=== PATIENT | female | born 1995 | race Caucasian/White ===

== ENCOUNTER 2016-11-19 21:05 | Outpatient (CLI) | payer OTHER ==
[2016-11-19 22:05] VITALS: BP 136/78; PULSE 78; RESP 18; TEMP 98.2
--- NOTE | 2016-11-21 22:03 | P.MSEPDOC ---
Presenting Problems - Arrival Data Date of Arrival on Unit: 11/19/16 Time of Arrival on Unit: 21:05 Mode of Transport: Ambulatory - Complaint OB-Reason for Admission/Chief Complaint: Pain Comment: abdominal pain mid upper, left lower Medical History - Information : 2 Para: 1 Term: 0 : 1 Abortions: Spontaneous or Elective: 0 Number of Living Children: 1 - Gestational Age Expected Date of Delivery: 04/06/17 Gestational Age by LARISSA (wks/days): 20 Weeks and 4 Days Review of Systems - Review of Systems Constitutional: No problems Breast: No problems ENT: No problems Cardiovascular: No problems Respiratory: No problems Gastrointestinal: No problems Genitourinary: No problems Musculoskeletal: No problems Neurological: No problems Skin: No problems Vital Signs - Temperature Temperature: 98.2 F Temperature Source: Oral - Pulse Right Sitting Brachial Pulse Rate: 78 Pulse Assessment Method: Automatic Cuff - Respirations Respiratory Rate: 18 Oxygen Delivery Method: Room Air - Blood Pressure Right Arm Sitting Blood Pressure: 136/78 Blood Pressure Mean: 97 Blood Pressure Source: Automatic Cuff Medical Screen Scoring (Pre) - Cervical Exam Dilation: Exam Deferred Effacement: Exam Deferred Membranes: Intact - Uterine Contractions Frequency: N/A Duration: N/A Intensity: N/A - Maternal Vital Signs Maternal Temperature: N/A Maternal Blood Pressure: N/A Signs of Preeclampsia: N/A Maternal Respirations: N/A - Maternal Trauma Maternal Trauma: N/A - Assessment Baseline FHR: 143 - Total Score Total Score (Pre): 0 - Level of Risk Level of Risk: Low (0-5) Physician Notification (Pre) - Physician Notified Physician Notified Date: 11/19/16 Physician Notified Time: 21:33 Physician/Practitioner Notifed:: Dr Carter Spoke With: Dr Carter New Order Received: Yes - Notification Comment Comment: pt can be discharged home, follow up in the office tomorrow Medical Screen Scoring (Post) - Cervical Exam Dilation: Exam Deferred Effacement: Exam Deferred Membranes: Intact - Uterine Contractions Frequency: N/A Duration: N/A Intensity: N/A - Maternal Vital Signs Maternal Temperature: N/A Signs of Preeclampsia: N/A Maternal Respirations: N/A - Maternal Trauma Maternal Trauma: N/A - Total Score Total Score (Post): 0 - Post Treatment Level of Risk Post Treatment Level of Risk: Low (0-5) Physician Notification (Post) - Physician Notified Physician Notified Date: 11/19/16 Physician Notified Time: 21:33 Spoke With: Dr Carter New Order Received: Yes Disposition - Disposition OB Disposition: Discharge to home, Written follow up instructions reviewed Discharge Date: 11/19/16 Discharge Time: 21:40 I agree with the RN Medical Screening Exam: Yes Risk & Benefit of care provided described in d/c instruction: Yes Diagnosis: OTH RELATED CONDITIONS, SECOND TRIMESTER
== END 2016-11-19 21:40 | disposition home or self-care (01) ==
LOC: FBPOP 21:05
PROVIDERS: ATTEND Obstetrics & Gynecology
DX: O26.892 Other specified pregnancy related conditions, second trimester (principal); Z3A.20 20 weeks gestation of pregnancy
CPT/HCPCS: 99213

== ENCOUNTER 2017-01-02 21:43 | Outpatient (CLI) | payer OTHER ==
[2017-01-02 22:39] VITALS: BP 141/73; PULSE 94; RESP 16; TEMP 97.9
--- NOTE | 2017-01-26 12:28 | P.MSEPDOC ---
Presenting Problems - Arrival Data Date of Arrival on Unit: 01/02/17 Time of Arrival on Unit: 21:45 Mode of Transport: Ambulatory - Complaint OB-Reason for Admission/Chief Complaint: Rule Out PROM, Decreased Movement Comment: Pt unsure of if her water broke "in the last couple days" Medical History - Information : 2 Para: 1 Term: 0 : 1 Abortions: Spontaneous or Elective: 0 Number of Living Children: 1 - Gestational Age Expected Date of Delivery: 04/12/17 Gestational Age by LARISSA (wks/days): 29 Weeks and 1 Days - History Complications: Prior Comment: PIH, HX preeclampsia Review of Systems - Review of Systems Constitutional: No problems Breast: No problems ENT: No problems Cardiovascular: No problems Respiratory: No problems Gastrointestinal: No problems Genitourinary: Increased frequency Musculoskeletal: No problems Neurological: No problems Skin: No problems Vital Signs - Temperature Temperature: 97.9 F Temperature Source: Oral - Pulse Pulse Oximetery Pulse Rate: 94 Pulse Assessment Method: Pulse Oximetry - Respirations Respiratory Rate: 16 Oxygen Delivery Method: Room Air O2 Sat by Pulse Oximetry: 100 - Blood Pressure Right Arm Blood Pressure: 141/73 Blood Pressure Mean: 95 Blood Pressure Source: Automatic Cuff Medical Screen Scoring (Pre) - Cervical Exam Dilation: Exam Deferred Effacement: Exam Deferred Membranes: Intact - Uterine Contractions Frequency: N/A Duration: N/A Intensity: N/A - Maternal Vital Signs Maternal Temperature: N/A Maternal Blood Pressure: N/A Signs of Preeclampsia: N/A Maternal Respirations: N/A - Maternal Trauma Maternal Trauma: N/A - Assessment Baseline FHR: 145 Heart Rate - NICHD Category: Category I (Normal) = 0 Position: N/A Station: N/A - Total Score Total Score (Pre): 0 - Level of Risk Level of Risk: Low (0-5) Physician Notification (Pre) - Physician Notified Physician Notified Date: 01/02/17 Physician Notified Time: 22:16 Physician/Practitioner Notifed:: Dr Carter Spoke With: Telephone New Order Received: Yes (discharge and follow up thursday if symptoms of UTI persist.) Disposition - Disposition OB Disposition: Discharge to home Discharge Date: 01/02/17 Discharge Time: 22:27 I agree with the RN Medical Screening Exam: No Physician's MSE Comment: incomplete documentation Risk & Benefit of care provided described in d/c instruction: No Diagnosis: 28 WEEKS GESTATION OF
== END 2017-01-02 22:27 | disposition home or self-care (01) ==
LOC: FBPOP 21:43
PROVIDERS: ATTEND Obstetrics & Gynecology
DX: O36.8130 Decreased fetal movements, third trimester, not applicable or unspecified (principal); Z3A.29 29 weeks gestation of pregnancy
CPT/HCPCS: 84112; G0463; 99213

== ENCOUNTER 2017-02-05 00:40 | Outpatient (CLI) | payer OTHER ==
[2017-02-05 01:23] VITALS: BP 138/86; PULSE 94; RESP 16; TEMP 96.3
--- NOTE | 2017-03-04 16:19 | P.MSEPDOC ---
Presenting Problems - Arrival Data Date of Arrival on Unit: 02/05/17 Time of Arrival on Unit: 00:40 Mode of Transport: Wheelchair - Complaint OB-Reason for Admission/Chief Complaint: Pain Comment: scar pain that started around 1500 02/04 Medical History - Information : 2 Para: 1 Term: 0 : 1 Abortions: Spontaneous or Elective: 0 Number of Living Children: 1 - Gestational Age Gestational Age by LARISSA (wks/days): 30 Weeks and 4 Days - History Complications: Prior Review of Systems - Review of Systems Constitutional: No problems Breast: No problems ENT: No problems Cardiovascular: No problems Respiratory: No problems Gastrointestinal: No problems Genitourinary: No problems Musculoskeletal: No problems Neurological: No problems Skin: No problems Vital Signs - Temperature Temperature: 96.3 F Temperature Source: Temporal Artery Scan - Pulse Pulse Oximetery Pulse Rate: 94 Pulse Assessment Method: Pulse Oximetry - Respirations Respiratory Rate: 16 Oxygen Delivery Method: Room Air - Blood Pressure Sitting Blood Pressure: 138/86 Blood Pressure Mean: 103 Blood Pressure Source: Automatic Cuff Medical Screen Scoring (Pre) - Cervical Exam Dilation: Exam Deferred Effacement: Exam Deferred Membranes: Intact - Uterine Contractions Frequency: N/A Duration: N/A Intensity: N/A - Maternal Vital Signs Maternal Temperature: N/A Maternal Blood Pressure: N/A Signs of Preeclampsia: N/A Maternal Respirations: N/A - Maternal Trauma Maternal Trauma: N/A - Assessment Baseline FHR: 135 Heart Rate - NICHD Category: Category I (Normal) = 0 NST: Reactive Position: N/A Station: N/A - Total Score Total Score (Pre): 0 - Level of Risk Level of Risk: Low (0-5) Physician Notification (Pre) - Physician Notified Physician Notified Date: 02/05/17 Physician Notified Time: 01:00 Physician/Practitioner Notifed:: Dr. Carter - Notification Comment Comment: Obtain reative NST, patient may continue to take regular tylenol as directed otc for pain, patient to keep regularly scheduled appointment with Dr. Bear otherwise can call office and schedule follow up for today or tomorrow in the office if the pain persists. Patient to return to the hospital if she notices contractions begin or patient begins leaking fluid or bleeding. Disposition - Disposition OB Disposition: Discharge to home, Written follow up instructions reviewed Discharge Date: 02/05/17 Discharge Time: 01:11 I agree with the RN Medical Screening Exam: Yes Risk & Benefit of care provided described in d/c instruction: Yes Diagnosis: 30 WEEKS GESTATION OF
== END 2017-02-05 01:11 | disposition home or self-care (01) ==
LOC: FBPOP 00:40
PROVIDERS: ATTEND Obstetrics & Gynecology
DX: O99.89 Other specified diseases and conditions complicating pregnancy, childbirth and the puerperium (principal); R10.9 Unspecified abdominal pain; Z3A.30 30 weeks gestation of pregnancy
CPT/HCPCS: 59025; G0463; 99213

== ENCOUNTER 2017-03-16 12:20 | Outpatient (CLI) | payer OTHER ==
[2017-03-16 14:09] VITALS: BP 123/79; PULSE 93; RESP 16; TEMP 97.2
--- NOTE | 2017-03-29 10:54 | P.MSEPDOC ---
Presenting Problems - Arrival Data Date of Arrival on Unit: 03/16/17 Time of Arrival on Unit: 12:20 Mode of Transport: Ambulatory - Complaint OB-Reason for Admission/Chief Complaint: Decreased Movement Medical History - Information : 2 Para: 1 Term: 1 : 0 Abortions: Spontaneous or Elective: 0 Number of Living Children: 1 - Gestational Age Gestational Age by LARISSA (wks/days): 36 Weeks and 1 Days Review of Systems - Review of Systems Constitutional: No problems Breast: No problems ENT: No problems Cardiovascular: No problems Respiratory: No problems Gastrointestinal: No problems Genitourinary: No problems Musculoskeletal: No problems Neurological: No problems Skin: No problems Vital Signs - Temperature Temperature: 97.2 F Temperature Source: Tympanic - Pulse Right Brachial Pulse Rate: 93 Pulse Assessment Method: Automatic Cuff - Respirations Respiratory Rate: 16 Oxygen Delivery Method: Room Air - Blood Pressure Right Arm Blood Pressure: 123/79 Blood Pressure Mean: 93 Blood Pressure Source: Automatic Cuff Medical Screen Scoring (Pre) - Cervical Exam Dilation: 1-3 cm = 1 Effacement: More than 50% = 2 Membranes: Intact - Uterine Contractions Frequency: > or = 36 weeks =2 Duration: > 40 seconds = 2 Intensity: N/A - Maternal Vital Signs Maternal Temperature: N/A Maternal Blood Pressure: N/A Signs of Preeclampsia: N/A Maternal Respirations: N/A - Maternal Trauma Maternal Trauma: N/A - Assessment Heart Rate - NICHD Category: Category I (Normal) = 0 - Total Score Total Score (Pre): 7 - Level of Risk Level of Risk: Medium (6-9) Physician Notification (Pre) - Physician Notified Physician Notified Date: 03/16/17 Physician Notified Time: 13:08 Physician/Practitioner Notifed:: Dr. Bear Spoke With: Dr. Bear New Order Received: Yes - Notification Comment Comment: D/C home. Pt has appt tomorrow to see Dr. Bear Disposition - Disposition OB Disposition: Discharge to home Discharge Date: 03/16/17 Discharge Time: 13:16 I agree with the RN Medical Screening Exam: Yes Risk & Benefit of care provided described in d/c instruction: Yes Diagnosis: DECREASED MOVEMENTS, THIRD TRIMESTER, FETUS 1
== END 2017-03-16 13:20 | disposition home or self-care (01) ==
LOC: FBPOP 12:20
PROVIDERS: ATTEND Obstetrics & Gynecology
DX: O36.8131 Decreased fetal movements, third trimester, fetus 1 (principal); Z3A.36 36 weeks gestation of pregnancy
CPT/HCPCS: 59025; G0463; 99213

== ENCOUNTER 2017-04-06 10:12 | Inpatient (IN) | payer OTHER ==
[2017-04-06] MEDS ORDERED: CITRIC ACID-SODIUM CITRATE 15 ML CUP PO ONE (10:36)
[2017-04-06] MEDS ORDERED: LIDOCAINE 1% 20 ML VIAL (10MG/ML) FOR IV START INTRADERMA PRN (10:36)
[2017-04-06] MEDS ORDERED: LIDOCAINE (PF) 10 MG/ML 2 ML VIAL SQ ONE (11:00)
[2017-04-06 11:26] LABS: Basophils % (A) 0 %; CH 27.9; CHCM 32.5; Eosinophils # (A) 0.1 k/uL (0-0.7); Eosinophils % (A) 1 %; HCT 36.9 % (34.0-46.0); HDW 3.62; HGB 11.9 gm/dL (11.4-16.0); Hypochromasia Slight; Luc # (Auto) 0.19; Luc % (Auto) 2; Lymphocytes # (A) 1.7 k/uL (1.0-4.8); Lymphocytes % (A) 21 %; MCH 27.9 pg (25.0-35.0); MCHC 32.3 g/dL (31.0-37.0); MCV 86.2 fL (80.0-100.0); Mean Platelet Volume 8.9; Monocytes # (A) 0.4 k/uL (0-1.0); Monocytes % (A) 5 %; Neutrophils # (A) 5.5 k/uL (1.3-7.7); Neutrophils % (A) 71 %; Poikilocytosis Slight; RBC 4.28 m/uL (3.80-5.40); RDW 15.4 % (11.5-15.5); WBC 7.8 k/uL (3.8-10.6); WBC (Perox) 8.56
[2017-04-06] MEDS ORDERED: CLINDAMYCIN 900 MG in DEXTROSE 5% IN WATER 50 ML IVPB STA ×2 (11:26)
[2017-04-06] MEDS: LACTATED RINGERS 1,000 ML IV SCH ×4 (11:27→22:10)
[2017-04-06] MEDS ORDERED: OXYTOCIN 10 UNIT/ML 1 ML VIAL ONE (11:54)
[2017-04-06] MEDS ORDERED: ONDANSETRON 4 MG/2 ML VIAL ONE (11:54)
[2017-04-06] MEDS ORDERED: MORPHINE SULFATE (PF) 0.3 MG/0.3 ML SYR ONE (11:54)
[2017-04-06] MEDS ORDERED: KETOROLAC 30 MG/ML 1 ML VIAL ONE (11:54)
[2017-04-06] MEDS ORDERED: KETOROLAC 30 MG/ML 1 ML VIAL IVP PRN (12:20)
[2017-04-06] MEDS ORDERED: diphenhydrAMINE 50 MG/ML 1 ML VIAL IVP PRN ×3 (12:20→12:57)
[2017-04-06] MEDS ORDERED: ONDANSETRON 4 MG/2 ML VIAL IVP PRN ×2 (12:20→12:57)
[2017-04-06] MEDS ORDERED: NALOXONE 0.4 MG/ML 1 ML VIAL IV PRN (12:20)
[2017-04-06] MEDS ORDERED: MORPHINE SULFATE 10 MG/ML 1ML VIAL IVP PRN (12:20)
[2017-04-06] MEDS ORDERED: NALBUPHINE 10 MG/ML AMPUL IV PRN (12:20)
--- NOTE | 2017-04-06 12:40 | P.HPOB ---
History of Present Illness H&P Date: 04/06/17 Chief Complaint: iup@39 0/7 weeks, h/o LTCS This is a 21-year-old 2 para 0101 at 39-0/7 weeks that presents for repeat with tubal ligation. She denies any concerns. She notes good movement she denies contractions, loss of fluid, vaginal bleeding. She is a known chronic hypertension on labetalol. No blood work showed a blood type of A+, rubella immune, RPR nonreactive, hepatitis B surface antigen negative, HIV negative, group beta strep negative, 03/13. 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, gestational diabetes first , History of Any Multi-Drug Resistant Organisms: None Reported Past Surgical History: Adenoidectomy, Section, Ear Surgery, Tonsillectomy Additional Past Surgical History / Comment(s): colposcopy Past Anesthesia/Blood Transfusion Reactions: Motion Sickness Smoking Status: Never smoker - Past Family History Mother Family Medical History: No Reported History Medications and Allergies Home Medications Medication Instructions Recorded Confirmed Type Labetalol [Trandate] 100 mg PO BID 11/19/16 04/06/17 History Ondansetron HCl [Zofran] 4 mg PO Q8HR PRN 03/31/17 04/06/17 History Pnv No.95/Ferrous Fum/Folic AC 1 each PO DAILY 03/31/17 04/06/17 History [ Multivitamin Tablet] Allergies Allergy/AdvReac Type Severity Reaction Status Date / Time amoxicillin Allergy Anaphylaxis Verified 03/31/17 14:44 ciprofloxacin [From Cipro] Allergy Anaphylaxis Verified 03/31/17 14:44 ciprofloxacin HCl Allergy Anaphylaxis Verified 03/31/17 14:44 [From Cipro] Penicillins Allergy Anaphylaxis Verified 03/31/17 14:44 sulfamethoxazole Allergy Dyspnea Verified 03/31/17 14:44 [From Bactrim] trimethoprim [From Bactrim] Allergy Dyspnea Verified 03/31/17 14:44 cefaclor [From Ceclor] AdvReac Anaphylaxis Verified 03/31/17 14:44 Exam Osteopathic Statement: *. No significant issues noted on an osteopathic structural exam other than those noted in the History and Physical/Consult. - OBG Physical Exam Abdomen: Gravid Abdomen: bowel sounds normal Uterus: enlarged Results Result Diagrams: 04/06/17 11:13 Abnormal Lab Results - Last 24 Hours (Table) 04/06/17 Range/Units 11:13 Plt Count 129 L (150-450) k/uL Assessment and Plan (1) Term Narrative/Plan: Repeat section is performed this morning., Routine postoperative care afterwards Current Visit: Yes Status: Acute Code(s): Z34.80 - ENCOUNTER FOR SUPRVSN OF NORMAL , UNSP TRIMESTER SNOMED Code(s): 94979908 (2) H/O: Current Visit: Yes Status: Acute Code(s): Z98.891 - HISTORY OF UTERINE SCAR FROM PREVIOUS SURGERY SNOMED Code(s): 185012100 (3) Chronic hypertension Current Visit: Yes Status: Acute Code(s): I10 - ESSENTIAL (PRIMARY) HYPERTENSION SNOMED Code(s): 21621424 Time with Patient: Less than 30
--- NOTE | 2017-04-06 12:47 | P.OP ---
Date of Procedure: 04/06/17 Preoperative Diagnosis: Intrauterine at 39-0/7 weeks, history of 1 at 35 weeks, chronic hypertension Postoperative Diagnosis: Same plus uterine window Procedure(s) Performed: Repeat section, bilateral tubal ligation Anesthesia: spinal Surgeon: Judy Bear Architectural Drafter #1: Qamar Wilder Estimated Blood Loss (ml): 600 IV fluids (ml): 1,000 Urine output (ml): 300 Pathology: other (Placenta) Condition: stable Disposition: observation Indications for Procedure: History of at 35 weeks Operative Findings: Large anterior uterine window Description of Procedure: The patient was prepped and draped in the usual fashion after spinal anesthesia was administered by Dr. Jackson. A Pfannenstiel incision was made and extended of the abdominal cavity without difficulty. The bladder peritoneum was visualized. A 2 cm incision was made in the transverse plane of the lower uterine segment to enter the uterus at which time clear fluid was noted. A large uterine window is noted incision is made superior to this. The incision was extended in both directions bluntly. The head was encountered within the field and delivered up and through the incision where the nose and mouth were thoroughly suctioned. Remainder of the infant was delivered onto the surgical field where the cord was doubly clamped, cut, and the infant was passed for resuscitative measures with weight 7-11 and Apgars 8-9 at 1 and 5 mins. A segment of cord was then doubly clamped, cut, and set aside should cord gases become necessary. The placenta was delivered manually, intact, and was grossly normal with a grossly normal three-vessel cord. The uterus was exteriorized and the interior cavity of the uterus swept of any remaining placental and membranous fragments with a laparotomy sponge. The margins of the incision were grasped with allis clamps and the incision closed in a running locked fashion with 0-vicryl. Any small points of bleeding were then made hemostatic with the Bovie. Once hemostasis was achieved, the posterior cul -de-sac was suctioned with a guard and the uterine and ovarian findings are as noted above. The uterus was replaced within the abdominal cavity and the gutters swept of any remaining blood fluid or clot. The incision was again reexamined and hemostasis was noted to be excellent. Once hemostasis was achieved the parietal peritoneum was loosely reapproximated. The layer of muscles were examined and made hemostatic with the Bovie. Attention was then turned to the fascia which was closed with a running stitches of 0 Vicryl. The subcutaneous tissues were irrigated, made hemostatic with the Bovie. The skin was reapproximated with 4-0 vicryl.. Estimated blood loss for the case was approximately 600 mL. All sponge instrument and needle counts are correct. There were no complications. The patient tolerated the procedure well and proceeded to the recovery room in stable condition. Both mother and are resting comfortably in recovery.
[2017-04-06] MEDS ORDERED: ACETAMINOPHEN TAB 325 MG TAB PO PRN (12:57)
[2017-04-06] MEDS ORDERED: Acetaminophen-Codeine 300-30mg TAB PO PRN ×2 (12:57)
[2017-04-06] MEDS ORDERED: ACETAMINOPHEN IV (For NPO) 1,000 MG in EMPTY BAG 1 BAG IVPB ONE (12:57)
[2017-04-06] MEDS ORDERED: diphenhydrAMINE 25 MG CAP PO PRN (12:57)
[2017-04-06] MEDS ORDERED: ZOLPIDEM 5 MG TAB PO PRN (12:57)
[2017-04-06] MEDS ORDERED: diphenhydrAMINE 50 MG CAP PO PRN (12:57)
[2017-04-06] MEDS ORDERED: LANOLIN CREAM 5 GM TUBE TOPICAL PRN (12:57)
[2017-04-06] MEDS ORDERED: IBUPROFEN 600 MG TAB PO PRN (12:57)
[2017-04-06] MEDS ORDERED: SIMETHICONE 80 MG CHEWABLE PO PRN (12:57)
[2017-04-06] MEDS ORDERED: METOCLOPRAMIDE 5 MG/ML 2 ML VIAL IVP PRN (12:57)
[2017-04-06] MEDS ORDERED: OXYTOCIN 20 UNITS/1000 ML NS 1,000 ML IV SCH (13:00)
[2017-04-06 15:08] VITALS: BMI 31.8
[2017-04-06] MEDS ORDERED: IBUPROFEN IV 800 MG in SODIUM CHLORIDE 0.9% 250 ML IV PRN (16:00)
[2017-04-06] MEDS ORDERED: HYDROcodone/APAP 5-325MG 1 EACH TAB PO PRN (16:01)
[2017-04-06] MEDS: SENNOSIDES-DOCUSATE SODIUM 1 EACH TAB PO SCH (20:46)
[2017-04-06] MEDS: LABETALOL 100 MG TAB PO SCH (20:46)
[2017-04-07] MEDS: HYDROcodone/APAP 5-325MG 1 EACH TAB PO PRN ×2 (01:08→07:39)
--- NOTE | 2017-04-07 07:04 | P.PN ---
Progress Note - Text Progress Note Date: 04/07/17 Postoperative day 1 status post section under spinal anesthesia, and intrathecal morphine given for postoperative analgesia, patient doing well, he has incisional pain which is managed with ,oral pain medication there is no anesthesia related complications, further management as per her primary team
[2017-04-07 07:38] LABS: Basophils % (A) 0 %; CHCM 31.3; Eosinophils # (A) 0.1 k/uL (0-0.7); Eosinophils % (A) 1 %; HCT 34.5 % (34.0-46.0); HDW 3.47; HGB 10.9 gm/dL (11.4-16.0); Hypochromasia Moderate; Luc # (Auto) 0.23; Luc % (Auto) 3; Lymphocytes # (A) 2.2 k/uL (1.0-4.8); Lymphocytes % (A) 25 %; MCH 28.3 pg (25.0-35.0); MCHC 31.6 g/dL (31.0-37.0); MCV 89.7 fL (80.0-100.0); Mean Platelet Volume 9.3; Monocytes # (A) 0.5 k/uL (0-1.0); Monocytes % (A) 5 %; Neutrophils # (A) 6.1 k/uL (1.3-7.7); Neutrophils % (A) 67 %; Poikilocytosis Slight; RBC 3.84 m/uL (3.80-5.40); RDW 15.5 % (11.5-15.5); WBC 9.1 k/uL (3.8-10.6); WBC (Perox) 9.38
--- NOTE | 2017-04-07 08:25 | P.PNOBGPC ---
Subjective - Subjective Principal diagnosis: POD 1 RCS Interval history: Patient is doing well this morning she is ambulating and voiding without difficulty. She denies pain. She is tolerating a regular diet without nausea or vomiting. She states her lochia is minimal. She expresses a great desire to go home later this evening if possible. She states the infant is doing well and pediatrics will be in to see the patient this afternoon Patient reports: Reports appetite normal, Reports voiding normally, Reports pain well controlled, Reports ambulating normally [place]: doing well Objective - Vital Signs Latest vital signs: Vital Signs Temp Pulse Pulse Resp BP Pulse Ox 04/07/17 07:59 97.9 F 87 16 136/88 99 04/07/17 04:00 98.1 F 87 16 113/70 96 04/07/17 00:00 98.3 F 97 16 124/80 97 04/06/17 20:00 98.5 F 84 16 148/88 98 04/06/17 14:48 83 16 144/74 99 04/06/17 14:18 79 16 143/86 99 04/06/17 13:48 97.1 F L 81 16 139/81 98 04/06/17 13:33 65 16 136/71 98 04/06/17 13:20 14 04/06/17 13:18 67 16 118/59 98 04/06/17 13:03 79 16 134/69 98 04/06/17 13:01 16 98 04/06/17 12:48 96.3 F L 72 16 119/62 98 04/06/17 10:30 97.2 F L 83 16 137/92 100 Intake and Output 04/06/17 04/07/17 04/07/17 22:59 06:59 14:59 Output Total 550 1025 Balance -550 -1025 Output: Urine 550 1025 Uretheral (Heard) 550 - Exam Lungs: bilateral: normal Extremities: Present: normal Abdomen: Present: normal appearance, soft Incision: Present: normal, dry, intact Uterus: Present: firm - Labs Labs: Abnormal Lab Results - Last 24 Hours (Table) 04/06/17 04/07/17 Range/Units 11:13 07:27 Hgb 10.9 L (11.4-16.0) gm/dL Plt Count 129 L 123 L (150-450) k/uL Assessment and Plan (1) Term Narrative/Plan: We'll continue current postoperative care. Will evaluate Nella later this afternoon for possible discharge home she is very anxious about being in the hospital. Will await pediatric recommendations for Tarah her Current Visit: Yes Status: Acute Code(s): Z34.80 - ENCOUNTER FOR SUPRVSEliud OF NORMAL , UNSP TRIMESTER SNOMED Code(s): 17244603 (2) H/O: Current Visit: Yes Status: Acute Code(s): Z98.891 - HISTORY OF UTERINE SCAR FROM PREVIOUS SURGERY SNOMED Code(s): 779158480 (3) Chronic hypertension Narrative/Plan: Blood pressure has been well controlled postoperatively. We'll can continue her labetalol as previously prescribed during the Current Visit: Yes Status: Acute Code(s): I10 - ESSENTIAL (PRIMARY) HYPERTENSION SNOMED Code(s): 76898403
[2017-04-07] MEDS ORDERED: PRENATAL VIT-IRON-FOLIC ACID 1 EACH CAP PO SCH (09:00)
[2017-04-07] MEDS: LABETALOL 100 MG TAB PO SCH (10:08)
[2017-04-07] MEDS: SENNOSIDES-DOCUSATE SODIUM 1 EACH TAB PO SCH ×2 (11:20→12:55)
--- NOTE | 2017-04-07 15:15 | P.DS ---
Providers Date of admission: 04/06/17 10:12 Expected date of discharge: 04/07/17 Attending physician: Judy Bear Primary care physician: Stated None - Discharge Diagnosis(es) (1) Term Current Visit: Yes Status: Acute (2) H/O: Patient is requesting discharge on postop day 1. She has done well postoperatively. She is ambulating and voiding without difficulty. She showered. She is tolerating a regular diet without nausea or vomiting. She states her pain is controlled with oral medication. She denies any concerns at this time. She is just very anxious about being in the hospital and is wishing to be discharged home. She is about a day and a half after repeat section. Infant has been discharged from pediatrics. Current Visit: Yes Status: Acute (3) Chronic hypertension Current Visit: Yes Status: Acute Plan - Discharge Summary Discharge Rx Participant: No New Discharge Prescriptions: No Action Labetalol [Trandate] 100 mg PO BID Ondansetron HCl [Zofran] 4 mg PO Q8HR PRN PRN Reason: Nausea Pnv No.95/Ferrous Fum/Folic AC [ Multivitamin Tablet] 1 tab PO DAILY Discharge Medication List Labetalol [Trandate] 100 mg PO BID 11/19/16 [History] Ondansetron HCl [Zofran] 4 mg PO Q8HR PRN 03/31/17 [History] Pnv No.95/Ferrous Fum/Folic AC [ Multivitamin Tablet] 1 tab PO DAILY [History] Patient Instructions/Handouts: (DC) Discharge Disposition: HOME SELF-CARE
[2017-04-07 17:46] VITALS: BP 135/78; PULSE 89; RESP 16; TEMP 98.4
== END 2017-04-07 19:22 | disposition home or self-care (01) | DRG 540 ==
LOC: 4FBP 10:12
PROVIDERS: ADMIT Obstetrics & Gynecology Obstetrics; ATTEND Obstetrics & Gynecology Obstetrics
PROC: 10D00Z1 Extraction of Products of Conception, Low, Open Approach (ICD-10-PCS; principal; 2017-04-06 12:00)
PROC: 0UB70ZZ Excision of Bilateral Fallopian Tubes, Open Approach (ICD-10-PCS; principal; 2017-04-06 12:00)
DX: O34.219 Maternal care for unspecified type scar from previous cesarean delivery (principal); O10.02 Pre-existing essential hypertension complicating childbirth; Z37.0 Single live birth; K21.9 Gastro-esophageal reflux disease without esophagitis; O99.62 Diseases of the digestive system complicating childbirth; Z79.899 Other long term (current) drug therapy; Z88.1 Allergy status to other antibiotic agents; Z88.0 Allergy status to penicillin; Z88.2 Allergy status to sulfonamides; Z86.32 Personal history of gestational diabetes; Z30.2 Encounter for sterilization
CPT/HCPCS: 85025; 86850; 86900; 86901; 88302; 88307

== ENCOUNTER → 2017-07-03 | Outpatient (CLI) | payer OTHER ==
[2017-07-03 08:14] LABS: Blood Urea Nitrogen 10 mg/dL (7-17)
--- NOTE | 2017-07-03 09:49 | MR ---
EXAMINATION TYPE: MR brain wo/w con DATE OF EXAM: 07/03/2017 COMPARISON: CT brain 05/06/2014 HISTORY: Migraine with aura, G 43.109 TECHNIQUE: Multiplanar, multisequence images of the brain and brainstem is performed without and with IV contras t, utilizing 6.5 mL intravenous Gadavist. FINDINGS: Diffusion weighted images demonstrate no evidence of a recent infarct or other diffusion ab normality. There is no extra-axial fluid collection or significant white matter signal abnormality. The ventricular system and cisternal spaces are normal in size and appearance. The brain volume is age appropriate. Midline structures demonstrate normal morphology. The craniocervical junction appears within normal limits. Post contrast images demonstrate no abnormal enhancement. The dural venous sinuses appear pa tent. The visualized sinuses are remarkable for inflammatory changes within the maxillary sinuses, et hmoid air cells and the globes are intact. IMPRESSION: Sinus disease. Unremarkable brain MRI pre and postcontrast
== END | disposition home or self-care (01) ==
LOC: RADMRIMAIN 07:41
PROVIDERS: ATTEND Family Medicine
DX: G43.109 Migraine with aura, not intractable, without status migrainosus (principal)
CPT/HCPCS: 82565; 84520; 70553; 36415; A9581

== ENCOUNTER → 2017-07-23 | Outpatient (CLI) | payer OTHER ==
[2017-07-23 14:01] LABS: Basophils % (A) 1 %; Eosinophils # (A) 0.1 k/uL (0-0.7); Eosinophils % (A) 1 %; HCT 44.1 % (34.0-46.0); HGB 13.7 gm/dL (11.4-16.0); Lymphocytes # (A) 2.1 k/uL (1.0-4.8); Lymphocytes % (A) 39 %; MCH 29.3 pg (25.0-35.0); MCHC 31.1 g/dL (31.0-37.0); MCV 94.3 fL (80.0-100.0); Mean Platelet Volume 7.5; Monocytes # (A) 0.2 k/uL (0-1.0); Monocytes % (A) 5 %; Neutrophils # (A) 2.8 k/uL (1.3-7.7); Neutrophils % (A) 53 %; Platelet Count 192 k/uL (150-450); RBC 4.68 m/uL (3.80-5.40); RDW 14.6 % (11.5-15.5); WBC 5.2 k/uL (3.8-10.6)
[2017-07-23 14:10] LABS: ALT 19 U/L (9-52); AST 20 U/L (14-36); Albumin 4.9 g/dL (3.5-5.0); Alkaline Phosphatase 67 U/L (38-126); Anion Gap 16 mmol/L; Blood Urea Nitrogen 13 mg/dL (7-17); Calcium 10.1 mg/dL (8.4-10.2); Carbon Dioxide 22 mmol/L (22-30); Chloride 109 mmol/L (98-107); Cholesterol 225 mg/dL (<200); Glucose 85 mg/dL (74-99); HDL Cholesterol 72 mg/dL (40-60); LDL Cholesterol,Calculated 120 mg/dL (0-99); Potassium 4.6 mmol/L (3.5-5.1); Sodium 147 mmol/L (137-145); Total Bilirubin 0.2 mg/dL (0.2-1.3); Total Protein 7.9 g/dL (6.3-8.2); Triglycerides 164 mg/dL (<150)
[2017-07-23 14:26] LABS: T4, Free (Free Thyroxine) 0.65 ng/dL (0.78-2.19)
[2017-07-23 19:33] LABS: Folate, Serum 11.3 ng/mL
== END | disposition home or self-care (01) ==
LOC: LABWHC1 13:25
PROVIDERS: ATTEND Pediatrics Neurodevelopmental Disabilities
DX: G43.709 Chronic migraine without aura, not intractable, without status migrainosus (principal)
CPT/HCPCS: 36415; 80053; 80061; 82607; 82746; 84439; 84443; 85025

== ENCOUNTER → 2017-08-04 | Outpatient (CLI) | payer OTHER | END | disposition home or self-care (01) | LOC: LABPAT 14:20 | PROVIDERS: ATTEND Obstetrics & Gynecology Obstetrics | DX: Z01.818 Encounter for other preprocedural examination (principal); I10 Essential (primary) hypertension | CPT/HCPCS: 93005 ==

== ENCOUNTER 2017-08-18 06:57 | Day surgery (SDC) | payer OTHER ==
[2017-08-12 14:56] VITALS: BMI 25.4
[~2017-08-18 06:57] MED LIST: DEXAMETHASONE SOD PHOSPHATE 10 MG/ML 1 ML VIAL IV ONE; IBUPROFEN IV 800 MG in SODIUM CHLORIDE 0.9% 250 ML IV ONE; LACTATED RINGERS 1,000 ML IV SCH; LIDOCAINE 1% 20 ML VIAL (10MG/ML) FOR IV START INTRADERMA PRN; Pre Op ABX Message 1 EACH MISC MISCELLANE ONE; SCOPOLAMINE 1.5MG/72HR PATCH TRANSDERM ONE
[2017-08-18] MEDS: ONDANSETRON 4 MG/2 ML VIAL IVP ONE ×2 (08:16→09:43)
[2017-08-18] MEDS ORDERED: fentaNYL (PF) 50 MCG/ML 2 ML AMP ONE (08:33)
[2017-08-18] MEDS ORDERED: LIDOCAINE 1% INJ 10MG/ML (20 ML MDV) ONE (08:33)
[2017-08-18] MEDS ORDERED: PROPOFOL 10 MG/ML 20 ML VIAL IV ONE (08:33)
[2017-08-18] MEDS ORDERED: MIDAZOLAM 2 MG/2 ML VIAL ONE (08:33)
[2017-08-18 09:15] VITALS: TEMP 97.3
--- NOTE | 2017-08-18 09:17 | P.OP ---
Date of Procedure: 08/18/17 Preoperative Diagnosis: Abnormal uterine bleeding, failed medical management Postoperative Diagnosis: Same Procedure(s) Performed: Dilation and curettage, endometrial ablation Anesthesia: MAC Surgeon: Judy Bear Estimated Blood Loss (ml): 5 IV fluids (ml): 100 Urine output (ml): 50 Pathology: other (Endometrial curettings) Condition: stable Disposition: PACU Indications for Procedure: Abnormal uterine bleeding, heavy at times, failed medical management Operative Findings: Normal endometrial cavity Description of Procedure: Informed consent was obtained in the preoperative area risks were reviewed including uterine perforation, failure of the procedure. Patient stated understanding consent was signed. Patient was taken operating room where general anesthesia was obtained without difficulty by the anesthesia department she was then prepped and draped in the normal sterile fashion in the dorsal lithotomy position a red rubber catheter was then used to drain the bladder of clear yellow urine. A weighted speculum was placed in the posterior vaginal vault detail of the cervix was grasped with a single-tooth tenaculum and endocervical canal was then dilated to 18-Russian. At this point a hysteroscope was placed through the cervix and toward the endometrial cavity a normal- appearing cavity was noted. Hysteroscope was removed and a sharp curettage was then performed until a gritty texture was noted in all 4 quadrants of the endometrial cavity. At this point the NovaSure device was opened and set to the uterine measurements length of 4 and a width of 4.3 and a power of 95. After it passed the cavity assessment cycle was allowed to occur 98 seconds of cycle time was noted. Afterwards the device was removed without difficulty the single-tooth tenaculum was taken off of the anterior lip of the cervix. Hemostasis was appreciated. All COUNTS are correct 2 instruments removed from the patient's vaginal vault the end of the procedure patient tolerated procedure well and was taken to the recovery room awake and in stable condition
[2017-08-18] MEDS: fentaNYL (PF) 50 MCG/ML 2 ML AMP IV PRN ×2 (09:25→09:41)
[2017-08-18] MEDS ORDERED: MEPERIDINE 50 MG/ML SYRINGE IVP ONE (09:49)
[2017-08-18 10:06] VITALS: RESP 18
[2017-08-18 10:37] VITALS: BP 110/64; PULSE 77
== END 2017-08-18 11:03 | disposition home or self-care (01) ==
LOC: OR 06:57
PROVIDERS: ATTEND Obstetrics & Gynecology Obstetrics
DX: N84.0 Polyp of corpus uteri (principal); N92.1 Excessive and frequent menstruation with irregular cycle; N94.6 Dysmenorrhea, unspecified; F41.9 Anxiety disorder, unspecified; F32.9 Major depressive disorder, single episode, unspecified; Z79.1 Long term (current) use of non-steroidal anti-inflammatories (NSAID); Z79.899 Other long term (current) drug therapy; F31.9 Bipolar disorder, unspecified; G43.909 Migraine, unspecified, not intractable, without status migrainosus; I10 Essential (primary) hypertension; Z88.1 Allergy status to other antibiotic agents; Z88.0 Allergy status to penicillin
CPT/HCPCS: 81025; 88305; 58563; J2250; J1100; J2175; J2405; J2001; J3010; J1741; J2704

== ENCOUNTER → 2018-03-16 | Outpatient (CLI) | payer OTHER ==
--- NOTE | 2018-03-16 13:17 | US ---
EXAMINATION TYPE: US abdomen complete DATE OF EXAM: 03/16/2018 COMPARISON: NONE CLINICAL HISTORY: R10.11 RUQ Pain. Epigastric pain also and radiating to right shoulder; N&V; symptom s noted after meals EXAM MEASUREMENTS: Liver Length: 14.3 cm Gallbladder Wall: 0.3 cm CBD: 0.2 cm Spleen: 8.0 x 4.6 x 8.0 cm Right Kidney: 10.9 x 5.3 x 3.6 cm Left Kidney: 10.8 x 5.0 x 5.2 cm Pancreas: wnl; tail is limitedly seen due to overlying bowel gas Liver: hyperechoic, shadowing focus = 1.4 x 1.8 x 1.0cm is seen inferior right lobe near right kidne y interface. This likely relates to benign granuloma. CT could be confirmatory. Gallbladder: wnl Evidence for sonographic Johnson's sign: no CBD: wnl Spleen: wnl Right Kidney: No hydronephrosis or masses seen Left Kidney: No hydronephrosis or masses seen Upper IVC: wnl Abd Aorta: wnl IMPRESSION: 1. No sonographic evidence of cholelithiasis or acute cholecystitis. However given the patient's [facility] HIDA scan could be performed with CCK to evaluate for biliary dyskinesia. 2. Solitary hyperechoic shadowing 1.8 cm within the right hepatic lobe that likely relates to a calci fied granuloma on the CT could be confirmatory.
== END | disposition home or self-care (01) ==
LOC: RADUSWWP 10:19
PROVIDERS: ATTEND Family Medicine
DX: R10.11 Right upper quadrant pain (principal)
CPT/HCPCS: 76700

== ENCOUNTER → 2018-06-25 | Outpatient (CLI) | payer OTHER ==
--- NOTE | 2018-06-27 11:32 | US ---
EXAMINATION TYPE: US pelvis complete transvag DATE OF EXAM: 06/25/2018 COMPARISON: NONE CLINICAL HISTORY: 23-year-old female R10 Abdominal pain, R10.2 Pelvic pain, RLQ pain; post coital bl eeding, endometrial ablation, tubal ligation 2016 TECHNIQUE: Transvaginal (TV) and Transabdominal (TA) per order . Date of LMP: one year ago prior t o endometrial ablation FINDINGS: EXAM MEASUREMENTS: Uterus: 8.2 x 5.3 x 3.5 cm Endometrial Stripe: Apparent endometrial tissue still present = 1.3cm Right Ovary: 2.9 x 1.4 x 1.5 cm Left Ovary: 2.0 x 2.1 x 1.1 cm 1. Uterus: Anteverted ; C section scar noted in TY 2. Endometrium: cyst seen in upper possible endometrial tissue still present and cyst size = 0.8 x 0 .7 x 0.5cm and mid endometrial area complex oval cystic area noted = 0.7 x 0.4 x 0.2cm 3. Right Ovary: multifollicular with largest follicle = 0.6 x 0.8 x 0.5cm 4. Left Ovary: multifollicular with largest follicle= 0.8 x 0.8 x 0.5cm Spectral, color and waveform Doppler imaging shows good arterial and venous flow within the ovaries ; there is no evidence for ovarian torsion. 5. Bilateral Adnexa: prominent, tortuous vessels seen in right fallopian tube area and A/P vein janene ure = 4.4mm. 6. Posterior cul-de-sac: wnl IMPRESSION: 1. Some residual endometrial tissue measuring up to 1.3 cm thick and additional cystic areas measurin g up to 8 mm particularly along the fundal endometrium. Findings suggest residual endometrium status post ablation and associated hematometra. 2. Follicular change in both ovaries. No sonographic evidence for ovarian torsion. 3. Prominent right adnexal vessels may be physiologic but can also be seen in the setting of pelvic c ongestion syndrome.
== END | disposition home or self-care (01) ==
LOC: RADUSWWP 14:59
PROVIDERS: ATTEND Obstetrics & Gynecology Obstetrics
DX: N85.8 Other specified noninflammatory disorders of uterus (principal); N93.0 Postcoital and contact bleeding; R19.00 Intra-abdominal and pelvic swelling, mass and lump, unspecified site
CPT/HCPCS: 76830; 76856

== ENCOUNTER 2018-07-11 01:26 | Inpatient (IN) | payer OTHER ==
[2018-07-11] MEDS ORDERED: NALOXONE 0.4 MG/ML 1 ML VIAL IV PRN (02:05)
[2018-07-11] MEDS ORDERED: ONDANSETRON 4 MG/2 ML VIAL IVP PRN (02:05)
[2018-07-11] MEDS ORDERED: VANCOMYCIN IV PER PHARMACY 1 EACH MISC MISCELLANE PRN (02:07)
[2018-07-11] MEDS: ACETAMINOPHEN TAB 325 MG TAB PO PRN ×2 (02:13→09:11)
[2018-07-11] MEDS: MORPHINE SULFATE 4 MG/ML SYRINGE IV PRN ×4 (02:13→20:43)
--- NOTE | 2018-07-11 02:17 | ED ---
ENT HPI - General Source: patient, EMS Mode of arrival: EMS Limitations: no limitations <Suyapa Patel - Last Filed: 07/11/18 02:11> <Trenton Mccollum - Last Filed: 07/11/18 06:57> - General Chief complaint: ENT Stated complaint: Dental Pain Time Seen by Provider: 07/11/18 01:33 - History of Present Illness Initial comments: 23-year-old female patient presents to the emergency department today for evaluation of dental pain and facial swelling. She is transferred to us from [facility] for evaluation by oral surgery. Patient reports 3 weeks of left-sided jaw pain after a dental extraction of 2 lower molars on the left side by a local dentist. She had increased pain and swelling, suspected infection, went back to the dentist for evaluation. He did not believe the infection to be related to the dental work so he referred her to urgent care. Patient was then started on clindamycin air, did follow up with her primary care physician and did have a continuation of the clindamycin. Patient states she has completed 3 rounds of this medication without any improvement of symptoms. Patient states she's been having intermittent fevers with the pain and swelling. Patient denies any abscess or drainage in her mouth that she's noticed. States that she is having pain radiating into the left ear. Denies any difficulty swallowing. She is having some difficulty opening her mouth. Patient denies any recent rash, shortness breath, chest pain, abdominal pain, nausea, vomiting, diarrhea, constipation, back pain, numbness, tingling, dizziness, weakness, hematuria, dysuria, urinary urgency, urinary frequency, headache, visual changes, or any other complaints. (Suyapa Patel) - Related Data Home Medications Medication Instructions Recorded Confirmed ARIPiprazole [Abilify] 07/11/18 DULoxetine HCL [Cymbalta] 07/11/18 Topiramate [Topamax] 07/11/18 Allergies Allergy/AdvReac Type Severity Reaction Status Date / Time amoxicillin Allergy Anaphylaxis Verified 07/11/18 01:32 ciprofloxacin [From Cipro] Allergy Anaphylaxis Verified 07/11/18 01:32 ciprofloxacin HCl Allergy Anaphylaxis Verified 07/11/18 01:32 [From Cipro] Penicillins Allergy Anaphylaxis Verified 07/11/18 01:32 sulfamethoxazole Allergy Dyspnea Verified 07/11/18 01:32 [From Bactrim] and rash trimethoprim [From Bactrim] Allergy Dyspnea Verified 07/11/18 01:32 and rash cefaclor [From Ceclor] AdvReac Anaphylaxis Verified 07/11/18 01:32 Review of Systems ROS Other: All systems not noted in ROS Statement are negative. <Suyapa Patel - Last Filed: 07/11/18 02:11> ROS Other: All systems not noted in ROS Statement are negative. <Trenton Mccollum - Last Filed: 07/11/18 06:57> ROS Statement: Those systems with pertinent positive or pertinent negative responses have been documented in the HPI. 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, gestational diabetes first , pelvic congestion syndrome History of Any Multi-Drug Resistant Organisms: None Reported Past Surgical History: Section, Ear Surgery, Tonsillectomy Additional Past Surgical History / Comment(s): ablation, tubal Past Anesthesia/Blood Transfusion Reactions: Motion Sickness Past Psychological History: Anxiety Smoking Status: Never smoker Past Alcohol Use History: None Reported Past Drug Use History: None Reported - Past Family History Mother Family Medical History: No Reported History <AmandaSuyapa Maco - Last Filed: 07/11/18 02:11> General Exam Limitations: no limitations General appearance: alert, in no apparent distress, other (This is a well- developed, well-nourished adult female patient in no acute distress. Vital signs upon presentation are temperature 101.4F oral, pulse 111, respirations 18 , blood pressure 134/89, pulse ox 100% on room air.) ENT exam: Present: mucous membranes moist, TM's normal bilaterally, other ( Patient has left-sided facial swelling, no evidence of drainable abscess.). Absent: normal exam, normal oropharynx Neck exam: Present: normal inspection. Absent: tenderness, meningismus, lymphadenopathy Respiratory exam: Present: normal lung sounds bilaterally. Absent: respiratory distress, wheezes, rales, rhonchi, stridor Cardiovascular Exam: Present: regular rate, normal rhythm, normal heart sounds. Absent: systolic murmur, diastolic murmur, rubs, gallop, clicks GI/Abdominal exam: Present: soft, normal bowel sounds. Absent: distended, tenderness, guarding, rebound, rigid Neurological exam: Present: alert, oriented X3, CN II-XII intact Psychiatric exam: Present: normal affect, normal mood Skin exam: Present: warm, dry, intact, normal color. Absent: rash <Suyapa Patel - Last Filed: 07/11/18 02:11> Vital Signs 07/11/18 01:27 Temperature 101.4 F H Pulse Rate 111 H Respiratory 18 Rate Blood Pressure 134/89 O2 Sat by Pulse 100 Oximetry Medical Decision Making <Suyapa Patel - Last Filed: 07/11/18 02:11> <Trenton Mccollum - Last Filed: 07/11/18 06:57> - Medical Decision Making 23-year-old female patient presented as a transfer from [facility] for evaluation by oral surgery. Patient reported 3 week history of left- sided dental pain and facial swelling after having 2 lower molars extracted. Physical examination did reveal left-sided facial swelling. This does not cross the submental region. She has no difficulty swallowing or breathing. She is able to speak without difficulty. She is currently afebrile with a temperature 101.4. We did review labs from [facility] which shows an elevated white blood cell count at 11.5. Lactic acid was 1.2. Remainder of labs are unremarkable. Patient be admitted to Dr. Gamble's service. She is currently receiving vancomycin. This will be dosed by pharmacy. We will administer Tylenol for fever control. She'll have pain management provided. (Suyapa Patel) I saw this patient in conjunction with the physician assistant account manager. I performed independent history and physical exam. Agree with case management. (Trenton Mccollum) Disposition Decision to Admit Reason: Admit from EC Decision Date: 07/11/18 Decision Time: 02:17 <Suyapa Patel - Last Filed: 07/11/18 02:11> <Trenton Mccollum - Last Filed: 07/11/18 06:57> Clinical Impression: Dental infection Disposition: ADMITTED IP TO THIS [facility] Condition: Serious
[2018-07-11] MEDS: SODIUM CHLORIDE 0.9% 1,000 ML IV SCH (03:01)
--- NOTE | 2018-07-11 08:57 | CT ---
EXAMINATION TYPE: CT soft tissue neck w con DATE OF EXAM: 07/11/2018 COMPARISON: None HISTORY: Left side facial swelling. Dental abscess CT DLP: 405.4 mGycm CONTRAST: Patient injected with 100 mL of Isovue 300. TECHNIQUE: Axial images at 3 mm thick sections. Reconstructed images in the coronal plane and sagitt al plane are reviewed. FINDINGS: Limited CT sections are obtained the lung apices. The lung apices appear clear. CT neck: The torus tubarius and fossa of Rosenmuller are normal. Maintainer Operator spaces are normal. Para nasal sinuses and mastoid air cells are clear. Parotid glands appear normal and symmetrical. Submandibular glands, are normal. Parapharyngeal spac es are normal. No suspicious adenopathy is evident. There are scattered small lymph nodes present in cluding the submandibular region and submental region Adjacent to the left mandible extending from the angle of the jaw through the submandibular space to the submental space is a lobular hypodensity. Findings are suspicious for a dental abscess. Mild mass effect is evident on the soft tissues. There is fullness within the left tonsillar pillar. Measureme nts of the components include approximately 2.4 x 1.2 cm in the submandibular region which extends th e submental area and approximately 1.6 x 3.1 cm along the medial posterior border of the left mandibl e. There is mild soft tissue swelling along the left subcutaneous tissues with mild inflammatory changes present. The hypopharynx appears within normal limits. Vocal cord level appear symmetrical. Thyroid as visualized is normal. There is a kyphosis within the cervical spine. No suspicious cortical erosions along the mandible are evident. There is some hypodensity within the region of the left molar teeth. IMPRESSIONS: 1. Findings suggestive for lobular communicating soft tissue abscess extending along the left mandibl e adjacent to the left mandibular posterior molar locations. There is some fullness within the soft t issues discussed above. 2. Superficial soft tissue swelling left mandibular level.
[2018-07-11] MEDS ORDERED: MIDAZOLAM 2 MG/2 ML VIAL IVP ONE (11:53)
[2018-07-11] MEDS ORDERED: ONDANSETRON 4 MG/2 ML VIAL IVP ONE ×2 (11:56→13:49)
[2018-07-11] MEDS ORDERED: LIDOCAINE 1% INJ 10MG/ML (20 ML MDV) ONE (12:20)
[2018-07-11] MEDS ORDERED: SODIUM CHLORIDE 0.9% 1,000 ML IV ONE (12:20)
[2018-07-11] MEDS ORDERED: DEXAMETHASONE SOD PHOS (MDV) 100 MG/10 ML VIAL ONE (12:20)
[2018-07-11] MEDS ORDERED: MIDAZOLAM 2 MG/2 ML VIAL ONE (12:20)
[2018-07-11] MEDS ORDERED: SUCCINYLCHOLINE CHLORIDE 100 MG/5 ML SYR IV ONE (12:20)
[2018-07-11] MEDS ORDERED: fentaNYL (PF) 50 MCG/ML 2 ML AMP ONE (12:20)
[2018-07-11] MEDS ORDERED: PROPOFOL 10 MG/ML 20 ML VIAL IV ONE (12:20)
[2018-07-11] MEDS ORDERED: LIDOCAINE 1%-EPI 1:100,000 20 ML VIAL SQ ONE ×2 (12:45)
[2018-07-11] MEDS ORDERED: LACTATED RINGERS 1,000 ML IV ONE (12:58)
[2018-07-11] MEDS ORDERED: VANCOMYCIN 1,000 MG in SODIUM CHLORIDE 0.9% 250 ML IVPB SCH (13:00)
[2018-07-11] MEDS ORDERED: HYDROmorphone 0.5 MG/0.5 ML SYRINGE IVP PRN (13:03)
[2018-07-11] MEDS ORDERED: KETOROLAC 30 MG/ML 1 ML VIAL IVP ONE (13:21)
[2018-07-11] MEDS: HYDROmorphone 1 MG/ML 1 ML SYRINGE IVP ONE ×2 (13:28→13:33)
[2018-07-11 14:44] LABS: Anion Gap 9 mmol/L; Blood Urea Nitrogen 8 mg/dL (7-17); Calcium 8.7 mg/dL (8.4-10.2); Carbon Dioxide 20 mmol/L (22-30); Chloride 115 mmol/L (98-107); Glucose 115 mg/dL (74-99); Sodium 144 mmol/L (137-145)
[2018-07-11 14:49] LABS: Potassium 4.7 mmol/L (3.5-5.1)
[2018-07-11] MEDS: DEXAMETHASONE SOD PHOSPHATE 4 MG/ML 1 ML VIAL IV SCH (16:49)
[2018-07-11] MEDS: KETOROLAC 30 MG/ML 1 ML VIAL IVP SCH (16:55)
[2018-07-11] MEDS ORDERED: KETOROLAC 30 MG/ML 1 ML VIAL IM SCH (18:00)
[2018-07-11] MEDS: ERTAPENEM 1 GM in SODIUM CHLORIDE 0.9% 50 ML IVPB SCH (22:44)
--- NOTE | 2018-07-11 23:24 | HP ---
HISTORY AND PHYSICAL DATE OF ADMISSION: 07/11/2018. CHIEF COMPLAINT: "My face is swollen". HISTORY OF PRESENT ILLNESS: Patient is a 23-year-old female who had teeth numbers 18 and 19 extracted approximately 3 weeks ago by a dentist. The patient states that a root canal was initiated on one of the teeth, which subsequently failed and then teeth numbers 18 and 19 were extracted. She states that approximately 2 days post extraction, she noticed pain and swelling to the left mandible. She was placed on a course of azithromycin, then followed by a course of clindamycin. Over this period of time, the swelling slowly increased. She states it then has swollen so much and the pain was intolerable, she went to the ER at [facility]. She was given an IV dose of vancomycin and was transferred to the [facility] ER. She was then admitted to the floor on IV vancomycin. CT scan revealed a fluid collection in the left submandibular space extending into the lateral pharyngeal area and the assessment clinician space. PATIENT'S PAST MEDICAL HISTORY: Significant for anxiety and depression and migraines. The patient denies any cardiopulmonary disease, endocrine disease, GI, disease, any neurologic, neuromuscular disease. PAST SURGICAL HISTORY: Significant for a and a tubal ligation. SOCIAL HISTORY: She denies any alcohol abuse. Denies smoking or any illicit drug use. MEDICATIONS: Include Abilify, Claritin, and Topamax and Cymbalta. ALLERGIES: INCLUDE PENICILLIN, AMOXICILLIN, CECLOR AND CIPRO. LABORATORY FINDINGS: Reveal a white count of 11.5. CT scan reveals swelling of the left face and submandibular region with a fluid collection in the left submandibular region on the medial aspect of the mandible extending also onto the lateral aspect and extending into the lateral pharyngeal region. There is mild mass defect. PHYSICAL EXAMINATION: Physical examination reveals the patient to have stable vital signs. She is afebrile. She is alert and oriented x3, and she is in [id number] pain. Her head and neck examination reveals moderate to severe soft tissue swelling of the left mandible extending into the buccal space and submandibular space and into the submental region. The area is firm to palpation. It is tender to palpation as well. Intraoral examination is limited secondary to trismus. The maximum incisal opening is approximately 10-15 mm. Limited examination reveals recent extractions of teeth numbers 18 and 19 without any drainage from the sockets and mild vestibular swelling. Her eyes exhibit PERRLA. There is no other facial swelling or deformity. ASSESSMENT: 1. Left submandibular space abscess. 2. Left assessment clinician space abscess. 3. Left submental abscess. 4. Left lateral pharyngeal space abscess. PLAN: The patient will be taken to the OR and these spaces will be drained. The patient will be continued on IV antibiotics and an Infectious Disease consultation will be obtained. MMODL / IJN: [id number] /
[2018-07-12] MEDS: KETOROLAC 30 MG/ML 1 ML VIAL IVP SCH ×4 (01:09→17:08)
[2018-07-12] MEDS: DEXAMETHASONE SOD PHOSPHATE 4 MG/ML 1 ML VIAL IV SCH ×4 (01:10→17:07)
[2018-07-12] MEDS: VANCOMYCIN 1,250 MG in SODIUM CHLORIDE 0.9% 250 ML IVPB SCH ×2 (01:11→12:05)
[2018-07-12] MEDS: DULoxetine HCL 60 MG CAPSULE.DR PO SCH ×2 (02:00→20:39)
[2018-07-12] MEDS: TOPIRAMATE 100 MG TAB PO SCH ×3 (02:00→20:39)
[2018-07-12] MEDS: MORPHINE SULFATE 4 MG/ML SYRINGE IV PRN (03:22)
--- NOTE | 2018-07-12 05:30 | CONS ---
CONSULTATION DATE OF SERVICE: 07/11/2018. REASON FOR CONSULTATION: Dental abscess and parapharyngeal abscess. HISTORY OF PRESENT ILLNESS: The patient is a 23-year-old female who recently did have extraction of teeth #18 and 19 about 3 weeks ago by a local dentist. The patient subsequently started having vague problem with pain and swelling to the left mandible area after extraction of her teeth. The patient apparently has been placed on a course of azithromycin followed by clindamycin without any improvement. Over the next few days, the patient noticed to having increasing pain and swelling to the left side of the neck area. The pain described to be throbbing with radiating almost 6 to 7/10, and no radiation. The patient has felt feverish. The patient denies having any difficulty swallowing. No nausea, no vomiting, no abdominal pain or any diarrhea. With these symptoms, the patient was initially evaluated at the [facility]. However, with no dental service available, the patient has been transferred to this facility for further evaluation of the same. The patient did have CT of the neck area which shows communicating soft tissue abscess extending along the left mandible just into the left mandibular posterior molar location. Some fullness within the soft tissue . The patient was evaluated by dental surgeon. She was taken to the OR and is status post drainage of this abscess. Official operative report is currently pending. She was started on vancomycin. Because of MULTIPLE ANTIBIOTIC ALLERGIES, Infectious Disease was consulted for further recommendation regarding antibiotic therapy. REVIEW OF SYSTEMS: Positive points have been mentioned in HPI. Rest of the system has been negative. PAST MEDICAL HISTORY: Infected tooth with dental abscess, hypertension, migraine headache, gestational diabetes. PAST SURGICAL HISTORY: , tonsillectomy, ablation. SOCIAL HISTORY: Denies smoking, drinking or drug use. FAMILY HISTORY: No pertinent findings noticed. ALLERGIES: TO AMOXICILLIN, CIPROFLOXACIN, SULFA . MEDICATIONS: Medication include the patient is currently on: 1. Tylenol. 2. Decadron. 3. Dilaudid. 4. Toradol. 5. Morphine sulfate. 6. Narcan. 7. Zofran. 8. Vancomycin 1250 q12 hours. PHYSICAL EXAMINATION: Blood pressure is 122/73 with a pulse of 83, temperature of 97.6, T-max 101.4. General description is a young female lying in bed in no distress. No tachypnea or accessory muscles of respiration use. HEENT: No pallor or scleral icterus. Oral mucosal membranes are dry. Left side of the neck currently covered with postop dressing with minimal redness and no drainage. Lungs unlabored breathing. Clear to auscultation anteriorly. No wheeze or crackles. Heart S1, S2. Regular rate and rhythm. ABDOMEN: Soft, no tenderness. No guarding or rigidity. Extremities: No edema of the feet. Skin examination: No rash or mass palpable. Neurological: Patient is awake, alert, oriented times three. Mood and affect normal. LABS: BUN of 8, creatinine 0.63. Urine HCG was negative. Culture obtained currently pending. DIAGNOSTIC IMPRESSION AND PLAN: 1. Patient admitted to the hospital with the patient did have fever, tachycardia, source is left mandibular abscess status post surgical drainage. This patient has failed outpatient azithromycin and clindamycin therapy. We will need to cover for the oral amada, which is mostly annex both gram-positive as well as gram-negative. 2. Patient did have multiple antibiotic allergies that will limit the number of antibiotics that can be safely used. PLAN: 1. We will add Invanz 1 g daily and continue patient on vancomycin pharmacy to dose target of 15 while watching Vanco trough closely. 2. We will follow up on clinical condition and culture to further adjust medication if needed. Thank you for this consultation. We will follow this patient along with you. MMODL / IJN: [id number] /
--- NOTE | 2018-07-12 05:57 | OP ---
OPERATIVE REPORT DATE OF PROCEDURE: 07/11/2018. PREOPERATIVE DIAGNOSES: 1. Left mandibular submandibular space and abscess. 2. Left survey researcher space abscess. 3. Left lateral pharyngeal space abscess. 4. Submental space abscess. POSTOPERATIVE DIAGNOSES: 1. Left mandibular submandibular space and abscess. 2. Left survey researcher space abscess. 3. Left lateral pharyngeal space abscess. 4. Submental space abscess. PROCEDURE PERFORMED: 1. Incision and drainage of the left submandibular space abscess. 2. Incision and drainage of the left survey researcher space abscess. 3. Incision and drainage of the submental space. 4. Incision and drainage of the left lateral pharyngeal space. SURGEON: Dr. Perez. ANESTHESIA: General via oral endotracheal intubation. FLUIDS: Crystalloid. ESTIMATED BLOOD LOSS: 5 mL. DRAINS: Two Steve drains were placed, one in the left submandibular space and one into the left survey researcher space. Aerobic and anaerobic cultures of the spaces were taken. INDICATIONS FOR PROCEDURE: The patient is a 23-year-old female who had 2 teeth extracted approximately 3 weeks ago from the left posterior mandible. She states that she has been on p.o. antibiotics, which have not helped. The swelling has progressively worsened over the past 3 weeks and then she presented to the [facility] ER where she was transferred to the [facility] ER. She was started on IV vancomycin. A CT scan revealed abscess formation of the previously mentioned spaces. The patient will undergo I and D of the necessary spaces. Risks, benefits, and alternatives of the procedure reviewed with the patient at length and all of her questions answered to her satisfaction. DESCRIPTION OF THE PROCEDURE: The patient was taken the operating room, placed on the operating table in the supine position. Next, the patient was induced via the IV route and was intubated orally. The general plane of anesthesia was then maintained throughout the operative course. The patient was then prepped and draped in usual manner for this procedure. The surgeon then directed attention to the left submandibular region where a 2 cm incision in the left submandibular region was made utilizing a 15 blade. The dissection proceeded through the skin and subcutaneous tissue down to the platysma. The platysma was divided and blunt dissection then ensued to the inferior border of the mandible. Copious amounts of pus was noted. The submandibular space and survey researcher space were drained. Blunt dissection into the lateral pharyngeal space also ensued. In addition, blunt dissection into the submandibular region was performed. The wounds were irrigated thoroughly and 2 quarter-inch [place] drains were placed into the left submandibular space and left survey researcher space. They were secured to the skin utilizing 3-0 Vicryl. Cultures of the wounds were taken. A drain sponge and ABD were then placed over the wound. The patient tolerated the procedure well without complications. The patient was then extubated in the OR and transferred to the postanesthetic care unit breathing spontaneously and hemodynamically stable. MMODL / IJN: [id number] /
[2018-07-12] MEDS: SODIUM CHLORIDE 0.9% 1,000 ML IV SCH ×2 (08:03→17:20)
[2018-07-12 09:30] LABS: Basophils % (A) 0 %; Eosinophils % (A) 0 %; HCT 38.3 % (34.0-46.0); HGB 12.1 gm/dL (11.4-16.0); Lymphocytes % (A) 8 %; MCH 28.9 pg (25.0-35.0); MCHC 31.5 g/dL (31.0-37.0); MCV 91.6 fL (80.0-100.0); Mean Platelet Volume 6.7; Monocytes # (A) 0.4 k/uL (0-1.0); Monocytes % (A) 3 %; Neutrophils # (A) 11.9 k/uL (1.3-7.7); Neutrophils % (A) 88 %; Platelet Count 286 k/uL (150-450); RBC 4.18 m/uL (3.80-5.40); RDW 13.3 % (11.5-15.5); WBC 13.5 k/uL (3.8-10.6)
[2018-07-12] MEDS: ARIPiprazole 2 MG TAB PO SCH (09:50)
[2018-07-12] MEDS ORDERED: LORazepam 1 MG TAB PO PRN (12:56)
[2018-07-12] MEDS ORDERED: IBUPROFEN 600 MG TAB PO SCH (13:00)
[2018-07-12] MEDS ORDERED: IBUPROFEN 600 MG TAB PO PRN (13:11)
[2018-07-12] MEDS: ERTAPENEM 1 GM in SODIUM CHLORIDE 0.9% 50 ML IVPB SCH (17:17)
[2018-07-12] MEDS: Acetaminophen-Codeine 300-30mg TAB PO PRN (20:39)
[2018-07-12] MEDS: LORazepam 1 MG TAB PO SCH (20:39)
[2018-07-12] MEDS: MELATONIN 3 MG TABLET PO PRN (20:39)
[2018-07-13] MEDS: VANCOMYCIN 1,250 MG in SODIUM CHLORIDE 0.9% 250 ML IVPB SCH ×2 (00:10→11:58)
[2018-07-13] MEDS: DEXAMETHASONE SOD PHOSPHATE 4 MG/ML 1 ML VIAL IV SCH ×4 (01:38→23:46)
--- NOTE | 2018-07-13 06:36 | PN ---
PROGRESS NOTE DATE OF SERVICE: 07/12/2018. REASON FOR FOLLOWUP: Submandibular abscess. INTERVAL HISTORY: The patient is afebrile. The patient's pain and swelling to the left side of the neck area has improved. The patient denies having any chest pain, shortness of breath or cough. No abdominal pain or any diarrhea. PHYSICAL EXAMINATION: On examination, blood pressure is 104/61 with a pulse of 81, temperature of 98.1. She is 97% on room air. General description is a young female, up in the bed in no distress. HEENT EXAMINATION: The left-side neck area swelling is slightly decreased, no drainage. LUNGS: Unlabored breathing, clear to auscultation anteriorly. HEART: S1, S2. Regular rate and rhythm. ABDOMEN: Soft, no tenderness. LABS: White count 13.5. Cultures are currently pending. DIAGNOSTIC IMPRESSION AND PLAN: Patient with perimandibular abscess secondary to the infected tooth, status post drainage of this abscess. The patient is currently covered with vancomycin and Invanz that will be continued for now. She will get a PICC line for outpatient IV antibiotic therapy in view of multiple antibiotic allergies and no oral option available. Continue with supportive care. MMODL / IJN: [id number] /
[2018-07-13] MEDS: Acetaminophen-Codeine 300-30mg TAB PO PRN ×4 (06:50→20:47)
[2018-07-13] MEDS: TOPIRAMATE 100 MG TAB PO SCH ×2 (07:43→20:48)
[2018-07-13] MEDS: ARIPiprazole 2 MG TAB PO SCH (07:59)
--- NOTE | 2018-07-13 08:45 | PN ---
PROGRESS NOTE DATE OF SERVICE: 07/12/2018 SUBJECTIVE: I'm feeling better. OBJECTIVE: Postoperative day #1, post I and D reveals decreased soft tissue swelling of the left face and submandibular region. The drain sponge revealed an abundance of purulent material. The drains are actively draining. The region is not as tender and has decrease in pain to palpation. Intraorally, the trismus has improved. Her opening is approximately 20 mm. The floor of mouth is not as tender and there is no vestibular swelling adjacent to the areas 18 and 19. Her vital signs are stable. She is afebrile. She is tolerating a liquid diet which was advanced to a soft diet. Her pain level is improving and she has requested p.o. medications. Her white count is 13.5. ASSESSMENT: Markedly improvement post I and D of the left submandibular space and adjacent spaces. PLAN: Continue heat to face. Continue the IV antibiotics. We will leave the drains in for another day and most likely remove them tomorrow. Anticipate discharge possibly tomorrow or the following day. MMODL / IJN: [id number] /
[2018-07-13] MEDS ORDERED: VANCOMYCIN TROUGH DUE 1 EACH MISC MISCELLANE ONE (11:00)
[2018-07-13 11:52] LABS: Anion Gap 8 mmol/L; Blood Urea Nitrogen 8 mg/dL (7-17); Calcium 8.7 mg/dL (8.4-10.2); Carbon Dioxide 22 mmol/L (22-30); Chloride 114 mmol/L (98-107); Glucose 98 mg/dL (74-99); Potassium 3.5 mmol/L (3.5-5.1); Sodium 144 mmol/L (137-145)
[2018-07-13] MEDS: SODIUM CHLORIDE 0.9% 1,000 ML IV SCH (13:53)
[2018-07-13] MEDS ORDERED: LIDOCAINE 1% INJ 10MG/ML (20 ML MDV) ONE (14:50)
[2018-07-13] MEDS ORDERED: LIDOCAINE 1% INJ 10MG/ML (20 ML MDV) SQ ONE (14:55)
--- NOTE | 2018-07-13 15:56 | IR ---
EXAMINATION TYPE: IR cvc insert >=5 years DATE OF EXAM: 07/13/2018 COMPARISON: NONE CLINICAL HISTORY: Infection Needs long-term intravenous access for antibiotics. PROCEDURE: After informed consent, the skin overlying the left basilic vein was localized with ultrasound and no aurora to be compressible and patent. An ultrasound image was obtained and submitted on the patient's c abad. The overlying skin was prepped and draped and Lidocaine was used for local anesthesia. A skin ethel was made with a scalpel. Access was gained to the vein under ultrasound guidance with a 21 gau ge needle and a 0.018 inch wire was advanced. Access site was dilated with Peel-Away sheath and cath eter tailored to the appropriate length and advanced such that the distal tip is at the cavoatrial ju nction. Spot image was obtained verifying placement. Catheter was fixed to the and a sterile dress ing was placed following hemostasis. Catheter was aspirated and flushed with saline. Patient was di scharged in stable condition without complication. Maximal barrier technique is utilized. Ultrasound image is documented on the chart. Ultrasound used with sterile technique. Fluoro time and fluoroscopic images submitted to document procedure: 0.1 minutes fluoroscopy time, 86 intraoperative image documents the procedure IMPRESSION: STATUS POST ULTRASOUND AND FLUOROSCOPIC GUIDED PICC LINE PLACEMENT, READY FOR USE. THIS PROCEDURE WAS PERFORMED BY THE UNDERSIGNED.
[2018-07-13] MEDS: ERTAPENEM 1 GM in SODIUM CHLORIDE 0.9% 50 ML IVPB SCH (17:02)
[2018-07-13] MEDS: DULoxetine HCL 60 MG CAPSULE.DR PO SCH (20:47)
[2018-07-13] MEDS: LORazepam 1 MG TAB PO SCH (20:47)
[2018-07-13] MEDS: VANCOMYCIN 1,500 MG in SODIUM CHLORIDE 0.9% 250 ML IVPB SCH (20:48)
[2018-07-13] MEDS: MELATONIN 3 MG TABLET PO PRN (20:49)
--- NOTE | 2018-07-14 00:18 | PN ---
PROGRESS NOTE DATE OF SERVICE: 07/13/2018. REASON FOR FOLLOWUP: Submandibular abscess. INTERVAL HISTORY: The patient is currently afebrile. She is feeling better and pain to the left neck area has decreased. The drainage tubes were removed. The patient denies any difficulty swallowing. Denies chest pain, abdominal pain and no diarrhea. PHYSICAL EXAMINATION: Blood pressure 102/67, pulse of 87, temperature 97.6, he is 100% on room air. GENERAL DESCRIPTION: A middle-aged female up in the bed in no distress. HEENT: Left-sided neck has some swelling. No redness or drainage. LUNGS: Unlabored breathing. Clear to auscultation anteriorly. HEART: S1, S2. Regular rate and rhythm. LABS: Blood culture has been . Wound culture so far negative. DIAGNOSTIC IMPRESSION AND PLAN: Patient with left submandibular abscess as a result of infected tooth that has been removed. The patient does have multiple antibiotic allergies with no oral options available and failed outpatient clindamycin therapy. Currently on Invanz and vancomycin. If culture remains negative plan will be for Invanz 1 g daily for at least 3 weeks with close outpatient followup and weekly monitoring of CBC, BMP and sed rate. Continue supportive care. MMODL / IJN: [id number] /
[2018-07-14 07:42] VITALS: RESP 16
[2018-07-14] MEDS: DEXAMETHASONE SOD PHOSPHATE 4 MG/ML 1 ML VIAL IV SCH ×2 (08:17→15:59)
[2018-07-14] MEDS: TOPIRAMATE 100 MG TAB PO SCH (08:18)
[2018-07-14] MEDS: ARIPiprazole 2 MG TAB PO SCH (08:18)
[2018-07-14] MEDS: SODIUM CHLORIDE 0.9% 1,000 ML IV SCH (08:18)
[2018-07-14] MEDS: VANCOMYCIN 1,500 MG in SODIUM CHLORIDE 0.9% 250 ML IVPB SCH (08:18)
[2018-07-14] MEDS: Acetaminophen-Codeine 300-30mg TAB PO PRN ×2 (08:23→16:08)
[2018-07-14] MEDS: ERTAPENEM 1 GM in SODIUM CHLORIDE 0.9% 50 ML IVPB SCH (14:55)
[2018-07-14 15:00] VITALS: BP 98/62; PULSE 79; TEMP 98.2
--- NOTE | 2018-07-14 15:52 | PN ---
PROGRESS NOTE DATE OF SERVICE: 07/14/2018 REASON FOR FOLLOWUP: Left submandibular abscess related to her dental disease. INTERVAL HISTORY: The patient is currently afebrile. The left neck area swelling and redness have improved. There is no drainage. The patient denies having any chest pain, shortness of breath or cough. No abdominal pain or diarrhea. PHYSICAL EXAMINATION: Blood pressure 119/79 with a pulse of 97, temperature 98.1. She is 97% on room air. General description is a middle-aged female up in the bed in no distress. HEENT EXAMINATION: The left submandibular area still has some swelling but no drainage. Oral mucosa membrane is dry. LUNGS: Unlabored breathing. Clear to auscultation anteriorly. HEART: S1, S2. Regular rate and rhythm. ABDOMEN: Soft. No tenderness. LABS: BUN of 8, creatinine 0.67. Cultures are negative so far. DIAGNOSTIC IMPRESSION AND PLAN: Patient with left submandibular abscess, status post drainage. Culture did not grow any MRSA. Will discontinue the vancomycin. The patient will continue on Invanz 1 gram daily because of multiple antibiotic allergies for another 2 or 3 weeks, depending upon her clinical response and close outpatient followup. Continue supportive care. MMODL / IJN: [id number] /
--- NOTE | 2018-07-15 13:56 | PN ---
PROGRESS NOTE DATE OF SERVICE: 07/13/2018 Postoperative day #2. SUBJECTIVE: Feeling much better. Patient has minimal pain and the swelling has decreased significantly in the left submandibular region. She states that she is eating well and voiding well. Patient states that she would like to go home. Her vital signs are stable and she is afebrile. OBJECTIVE: The patient is resting comfortably in bed. The [place] drains in the left submandibular region are in place and the drain sponge shows minimal drainage from the wound. The swelling has decreased significantly and is mildly tender to palpation. Intraorally, the maximal incisal opening is approximately 25 mm and there is no drainage from the extraction sites 18 and 19. There is no drainage from the wound adjacent to teeth numbers 18 and 19. There is no pharyngeal swelling. The floor of mouth is soft. ASSESSMENT: Improvement of the left submandibular space infection/lateral pharyngeal space infection/submental space and flight line mechanic space infection. PLAN: The drains were removed at bedside. Patient is to continue heat to the area and the patient is going to receive a PICC line and then will be discharged on IV antibiotics. The patient is to follow up in my office in 1 week's time. The patient was discharged on Motrin and Tylenol 3. MMODL / IJN: [id number] /
== END 2018-07-14 16:22 | disposition home or self-care (01) | DRG 133 ==
LOC: EC 01:26 → UNDOADMOB 01:41 → INTOOBSV 01:41 → 4MS4W 01:41 → OBSVTOIN 10:12 → INTOOBSV 10:12 → 4MS4W 07-12 18:07 → OBSVTOIN 07-13 10:12 → UNDODISIN 07-14 16:22
PROVIDERS: ADMIT Dentist Oral and Maxillofacial Surgery; ATTEND Dentist Oral and Maxillofacial Surgery
PROC: 0C9M0ZZ Drainage of Pharynx, Open Approach (ICD-10-PCS; 2018-07-11)
PROC: 0W930ZZ Drainage of Oral Cavity and Throat, Open Approach (ICD-10-PCS; 2018-07-11)
PROC: 0J910ZZ Drainage of Face Subcutaneous Tissue and Fascia, Open Approach (ICD-10-PCS; 2018-07-11)
PROC: 0J910ZZ Drainage of Face Subcutaneous Tissue and Fascia, Open Approach (ICD-10-PCS; principal; 2018-07-11 12:00)
PROC: 02HV33Z Insertion of Infusion Device into Superior Vena Cava, Percutaneous Approach (ICD-10-PCS; 2018-07-13)
DX: K12.2 Cellulitis and abscess of mouth (principal); L02.01 Cutaneous abscess of face; J39.1 Other abscess of pharynx; I10 Essential (primary) hypertension; F32.9 Major depressive disorder, single episode, unspecified; F41.9 Anxiety disorder, unspecified; G43.909 Migraine, unspecified, not intractable, without status migrainosus; M19.072 Primary osteoarthritis, left ankle and foot; M19.032 Primary osteoarthritis, left wrist; Z86.32 Personal history of gestational diabetes; Z79.899 Other long term (current) drug therapy; Z88.0 Allergy status to penicillin; Z88.2 Allergy status to sulfonamides; Z88.1 Allergy status to other antibiotic agents
CPT/HCPCS: 36573; 70491; 80048; 80202; 81025; 85025; 87070; 87075; 87205; 96374; 99285

== ENCOUNTER 2018-07-21 22:35 | Emergency (ER) | payer OTHER ==
[2018-07-21 22:42] VITALS: TEMP 98.8
--- NOTE | 2018-07-22 00:03 | ED ---
General Adult HPI - General Chief complaint: Skin/Abscess/Foreign Body Stated complaint: Dressing for PICC line Time Seen by Provider: 07/21/18 23:42 Source: patient Mode of arrival: ambulatory Limitations: no limitations - History of Present Illness Initial comments: 23-year-old female patient presents to the emergency department today requesting PICC line dressing change. She states that her daughter accidentally dislodged a dressing and she did not have supplies at home to replace it. Patient denies any other symptoms. Denies any pain on the ear. Denies any leaking from the site. She is currently receiving IV antibiotics for an abscess. Denies any fevers or chills. - Related Data Home Medications Medication Instructions Recorded Confirmed ARIPiprazole [Abilify] 4 mg PO DAILY 07/11/18 07/21/18 Acetaminophen Tab [Tylenol Tab] 1,000 mg PO Q6HR PRN 07/11/18 07/21/18 DULoxetine HCL [Cymbalta] 60 mg PO HS 07/11/18 07/21/18 Topiramate [Topamax] 100 mg PO BID 07/11/18 07/21/18 traMADol HCL [Ultram] 50 mg PO Q6H PRN 07/11/18 07/21/18 Previous Rx's Medication Instructions Recorded Ertapenem [INVanz] 1 gm IVPB Q24H #21 bag 07/13/18 Allergies Allergy/AdvReac Type Severity Reaction Status Date / Time amoxicillin Allergy Anaphylaxis Verified 07/21/18 23:01 cefaclor [From Ceclor] Allergy Anaphylaxis Verified 07/21/18 23:01 ciprofloxacin [From Cipro] Allergy Anaphylaxis Verified 07/21/18 23:01 ciprofloxacin HCl Allergy Anaphylaxis Verified 07/21/18 23:01 [From Cipro] levofloxacin [From Levaquin] Allergy Dyspnea Verified 07/21/18 23:01 Penicillins Allergy Anaphylaxis Verified 07/21/18 23:01 sulfamethoxazole Allergy Dyspnea Verified 07/21/18 23:01 [From Bactrim] and rash trimethoprim [From Bactrim] Allergy Dyspnea Verified 07/21/18 23:01 and rash Review of Systems ROS Statement: Those systems with pertinent positive or pertinent negative responses have been documented in the HPI. ROS Other: All systems not noted in ROS Statement are negative. 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, gestational diabetes first , pelvic congestion syndrome History of Any Multi-Drug Resistant Organisms: None Reported Past Surgical History: Section, Ear Surgery, Tonsillectomy Additional Past Surgical History / Comment(s): ablation, tubal Past Anesthesia/Blood Transfusion Reactions: Motion Sickness Past Psychological History: Anxiety Smoking Status: Never smoker Past Alcohol Use History: None Reported Past Drug Use History: None Reported - Past Family History Mother Family Medical History: No Reported History General Exam Limitations: no limitations General appearance: alert, in no apparent distress Respiratory exam: Present: normal lung sounds bilaterally. Absent: respiratory distress, wheezes, rales, rhonchi, stridor Cardiovascular Exam: Present: regular rate, normal rhythm, normal heart sounds. Absent: systolic murmur, diastolic murmur, rubs, gallop, clicks Extremities exam: Present: normal inspection, full ROM, normal capillary refill , other (PICC line noted to left upper arm, no surrounding erythema, no drainage from the site). Absent: tenderness, pedal edema, joint swelling, calf tenderness Neurological exam: Present: alert, oriented X3, CN II-XII intact Psychiatric exam: Present: normal affect, normal mood Skin exam: Present: warm, dry, intact, normal color. Absent: rash Course Vital Signs 07/21/18 07/22/18 22:38 00:17 Temperature 98.8 F Pulse Rate 91 77 Respiratory 20 16 Rate Blood Pressure 111/77 122/75 O2 Sat by Pulse 100 97 Oximetry Medical Decision Making - Medical Decision Making 23-year-old female patient presented to the emergency department today requesting PICC line dressing change. Evaluation of the site was unremarkable. We change the dressing. She'll be discharged to follow-up with her primary care physician. Disposition Clinical Impression: Encounter for change of dressing Disposition: HOME SELF-CARE Condition: Good Instructions (If sedation given, give patient instructions): Peripherally Inserted Central Catheters and Midline Catheters in... (DC) Additional Instructions: Keep dressing clean and dry. Follow-up with her primary care physician for recheck as needed. Return to the emergency department immediately for any new, worsening, or concerning symptoms. Is patient prescribed a controlled substance at d/c from ED?: No Referrals: Lucy Nunez MD [Primary Care Provider] - 1-2 days Time of Disposition: 00:03
[2018-07-22 00:19] VITALS: BP 122/75; PULSE 77; RESP 16
== END 2018-07-22 00:19 | disposition home or self-care (01) ==
LOC: EC 22:35
DX: Z45.2 Encounter for adjustment and management of vascular access device (principal); F41.9 Anxiety disorder, unspecified; Z79.899 Other long term (current) drug therapy; Z88.0 Allergy status to penicillin; Z88.1 Allergy status to other antibiotic agents; Z88.2 Allergy status to sulfonamides
CPT/HCPCS: 99282

== ENCOUNTER → 2018-10-20 | Outpatient (CLI) | payer OTHER ==
--- NOTE | 2018-10-20 08:08 | US ---
EXAMINATION TYPE: US liver DATE OF EXAM: 10/20/2018 COMPARISON: CT CLINICAL HISTORY: K76.9 Liver Disease. EXAM MEASUREMENTS: Liver Length: 13.7 cm Gallbladder Wall: 0.2 cm CBD: 0.3 cm Right Kidney: 10.8 x 4.5 x 3.5 cm Pancreas: wnl Liver: hyperechoic, round and shadowing focus inferior right lobe is still seen and size = 1.1 x 0.8 x 1.1cm, stable Gallbladder: wnl Evidence for sonographic Johnson's sign: no CBD: wnl Right Kidney: No hydronephrosis or masses seen There is no ascites. IMPRESSION: Stable exam.
== END ==
LOC: RADUSWWP 07:00
PROVIDERS: ATTEND Family Medicine
DX: K76.9 Liver disease, unspecified (principal)
CPT/HCPCS: 76705

== ENCOUNTER → 2018-11-04 | Outpatient (CLI) | payer OTHER ==
--- NOTE | 2018-11-04 15:49 | XR ---
EXAMINATION TYPE: XR abdomen 2V DATE OF EXAM: 11/04/2018 COMPARISON: NONE HISTORY: Diffuse abdominal pain after hysterectomy. TECHNIQUE: Upright and supine views of the abdomen were obtained FINDINGS: There is no evidence of pneumoperitoneum on the upright view. Lung bases are well aerated. There is a levoscoliosis of the lumbar spine on the upright view improved on the supine view. Osseous structures appear grossly intact. No dilated large or small bowel redundant sigmoid colon measures u p to 4.7 cm. Mild fecal stasis in the right hemicolon. IMPRESSION: Mild degree fecal stasis in the right hemicolon. Nonobstructive bowel gas pattern.
== END | disposition home or self-care (01) ==
LOC: RADXRMAIN 14:14
PROVIDERS: ATTEND Family Medicine
DX: K56.41 Fecal impaction (principal)
CPT/HCPCS: 74019

== ENCOUNTER 2019-10-18 13:57 | Emergency (ER) | payer OTHER ==
[2019-10-18 14:05] VITALS: BP 110/78; PULSE 84; RESP 18; TEMP 97.9
--- NOTE | 2019-10-18 14:32 | ED ---
Lower Extremity Injury HPI - General Chief Complaint: Extremity Injury, Lower Stated Complaint: Ankle injury Time Seen by Provider: 10/18/19 14:07 Source: patient, RN notes reviewed Mode of arrival: wheelchair Limitations: no limitations - History of Present Illness Initial Comments: This a 24-year-old female presents emergency Department chief complaint of right ankle foot pain, swelling. She states that she slipped yesterday on her porch states that she fell. Patient complains primarily right foot and ankle pain. She did state that she hit her back which has no discomfort this time denies any head injury no loss conscious. Patient states that she is having difficulty ambulate on it secondary to pain. Patient denies any bruising, swelling noted. No paresthesias. - Related Data Home Medications Medication Instructions Recorded Confirmed ARIPiprazole [Abilify] 4 mg PO DAILY 07/11/18 07/21/18 Acetaminophen Tab [Tylenol Tab] 1,000 mg PO Q6HR PRN 07/11/18 07/21/18 DULoxetine HCL [Cymbalta] 60 mg PO HS 07/11/18 07/21/18 Topiramate [Topamax] 100 mg PO BID 07/11/18 07/21/18 traMADol HCL [Ultram] 50 mg PO Q6H PRN 07/11/18 07/21/18 Previous Rx's Medication Instructions Recorded Ertapenem [INVanz] 1 gm IVPB Q24H #21 bag 07/13/18 Allergies Allergy/AdvReac Type Severity Reaction Status Date / Time amoxicillin Allergy Anaphylaxis Verified 10/18/19 14:05 cefaclor [From Ceclor] Allergy Anaphylaxis Verified 10/18/19 14:05 ciprofloxacin [From Cipro] Allergy Anaphylaxis Verified 10/18/19 14:05 ciprofloxacin HCl Allergy Anaphylaxis Verified 10/18/19 14:05 [From Cipro] levofloxacin [From Levaquin] Allergy Dyspnea Verified 10/18/19 14:05 Penicillins Allergy Anaphylaxis Verified 10/18/19 14:05 sulfamethoxazole Allergy Dyspnea Verified 10/18/19 14:05 [From Bactrim] and rash trimethoprim [From Bactrim] Allergy Dyspnea Verified 10/18/19 14:05 and rash Review of Systems ROS Statement: Those systems with pertinent positive or pertinent negative responses have been documented in the HPI. ROS Other: All systems not noted in ROS Statement are negative. 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, gestational diabetes first , pelvic congestion syndrome, meniere's History of Any Multi-Drug Resistant Organisms: None Reported Past Surgical History: Section, Ear Surgery, Hysterectomy, Tonsillectomy Additional Past Surgical History / Comment(s): ablation, tubal Past Anesthesia/Blood Transfusion Reactions: Motion Sickness Past Psychological History: Anxiety, Depression Smoking Status: Never smoker Past Alcohol Use History: None Reported Past Drug Use History: None Reported - Past Family History Mother Family Medical History: No Reported History General Exam Limitations: no limitations General appearance: alert, in no apparent distress Head exam: Present: atraumatic, normocephalic, normal inspection Eye exam: Present: normal appearance, PERRL, EOMI. Absent: scleral icterus, conjunctival injection, periorbital swelling Respiratory exam: Present: normal lung sounds bilaterally. Absent: respiratory distress, wheezes, rales, rhonchi, stridor Cardiovascular Exam: Present: regular rate, normal rhythm, normal heart sounds. Absent: systolic murmur, diastolic murmur, rubs, gallop, clicks Extremities exam: Present: other (Right ankle there is mild swelling, ecchymosis and right foot swelling. Tenderness diffusely. There is some proximal fibular tenderness on the right. No tenderness above the right knee neurovascular intact with equal pedal pulses.) Course Vital Signs 10/18/19 14:02 Temperature 97.9 F Pulse Rate 84 Respiratory 18 Rate Blood Pressure 110/78 O2 Sat by Pulse 99 Oximetry Procedures - Orthopedic Splinting/Casting Injury #1 Side: right Lower Extremity Injury Location: short leg, ankle, foot Lower Extremity Immobilizer: posterior splint Other Orthopedic Equipment: crutches Medical Decision Making - Medical Decision Making X-ray shows evidence avulsion fractures. Patient was splinted in a short leg splint will be follow-up with orthopedics and return parameters were discussed. She is neurovascularly intact. Disposition Clinical Impression: Foot fracture, right Disposition: HOME SELF-CARE Condition: Stable Instructions (If sedation given, give patient instructions): Foot Fracture in Adults (ED) Additional Instructions: Please return to the Emergency Department if symptoms worsen or any other concerns. Is patient prescribed a controlled substance at d/c from ED?: No Referrals: Lucy Nunez MD [Primary Care Provider] - 1-2 days Anthony Houser MD [STAFF PHYSICIAN] - 1-2 days Time of Disposition: 14:49
--- NOTE | 2019-10-18 14:39 | XR ---
EXAMINATION TYPE: XR tibia fibula RT DATE OF EXAM: 10/18/2019 COMPARISON: None HISTORY: Fall, pain TECHNIQUE: 2 view right tibia and fibula FINDINGS: No acute fractures or dislocations are evident. Soft tissues appear normal. Joint spaces ar e preserved. On the lateral image there is a small calcification over the distal talus. Please see right foot dict ation same date. IMPRESSION: 1. No acute fracture of the tibia or fibula. 2. Please see right foot dictation same date.
--- NOTE | 2019-10-18 14:43 | XR ---
EXAMINATION TYPE: XR foot complete RT DATE OF EXAM: 10/18/2019 COMPARISON: 08/16/2003 HISTORY: Fall from porch, pain TECHNIQUE: 3 view right foot FINDINGS: There is a small calcification over the superior distal talus. All avulsion should be consi dered. Small calcification may also be lateral to the distal calcaneus. Another small avulsion should be considered. Small avulsion from the superior navicular may also be present. There appears to be s ome soft tissue swelling over the tarsal region of the foot on the lateral projection. IMPRESSION: 1. Small avulsions from the distal anterior dorsal talus and the lateral distal calcaneus may be pres ent. Possible avulsion from the proximal dorsal navicular. Correlate with location of the patient's p ain.
[2019-10-18] MEDS ORDERED: ACET/COD 300 MG/30 MG STARTER PACK 6 TAB BTL PO STA (15:00)
== END 2019-10-18 15:15 | disposition home or self-care (01) ==
LOC: EC 13:57
DX: S92.151A Displaced avulsion fracture (chip fracture) of right talus, initial encounter for closed fracture (principal); F41.9 Anxiety disorder, unspecified; F32.9 Major depressive disorder, single episode, unspecified; Z79.899 Other long term (current) drug therapy; Z88.0 Allergy status to penicillin; Z88.1 Allergy status to other antibiotic agents; Z88.2 Allergy status to sulfonamides; W01.0XXA Fall on same level from slipping, tripping and stumbling without subsequent striking against object, initial encounter; Y92.008 Other place in unspecified non-institutional (private) residence as the place of occurrence of the external cause
CPT/HCPCS: 29515; 99283

== ENCOUNTER → 2019-12-17 | Outpatient (CLI) | payer OTHER ==
--- NOTE | 2019-12-18 21:33 | MR ---
EXAMINATION TYPE: MR ankle RT wo con DATE OF EXAM: 12/17/2019 COMPARISON: Radiograph 10/18/2019 HISTORY: 24-year-old female with right ankle/foot pain, S/P injury 2 mos ago TECHNIQUE: Multiplanar, multisequence images of the right ankle were obtained without IV contrast. FINDINGS: Extensive edema seems to relate to a vertically oriented nondisplaced fracture of the medial cuboid o riented in the sagittal plane. Capsular swelling along the dorsal talonavicular joint and also along the lateral calcaneocuboid join t corresponding to the capsular avulsion/chip fracture seen on 10/18/2019 radiographs. Additional multifocal edema is present, particularly within the medial talus, talar head, patchy sign al change within the proximal inferior medial cuneiform, and patchy signal change within the navicula r. There is an type II accessory navicular with edema on either side as well. Syndesmosis appears intact as do the anterior extensor tendons. Lateral peroneal tendons and lateral ligamentous complex appears intact. Mild edema within the deep posterior deltoid ligament suggesting a mild sprain. Spring ligament compl ex appears grossly intact. Medial flexor tendons are intact. Ankle joint is intact with small posterior tibiotalar and subtalar joint effusions. Subtalar joint is aligned. Preserved fatty signal within the sinus Tarsi. The tarsal tunnel is clear. Achilles tendon and origin of the plantar fascia are intact. Lisfranc ligament appears intact. IMPRESSION: 1. Nondisplaced vertical fracture of the medial cuboid oriented in the sagittal plane with extensive associated bone marrow edema. 2. Additional bone bruises or edema from altered biomechanics especially within the talus. 3. Capsular swelling and some insertional bone marrow edema along the dorsal talonavicular joint and lateral calcaneocuboid joint likely corresponding to capsular avulsion and chip fractures seen on the 10/18/2019 radiographs. 4. Grade 1 deep posterior deltoid ligament sprain. 5. 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 Correlate for any potential symptoms of os naviculare syndrome.
== END | disposition home or self-care (01) ==
LOC: RADMRIMAIN 14:42
PROVIDERS: ATTEND Orthopaedic Surgery
DX: S92.214A Nondisplaced fracture of cuboid bone of right foot, initial encounter for closed fracture (principal); S93.421A Sprain of deltoid ligament of right ankle, initial encounter; Q74.2 Other congenital malformations of lower limb(s), including pelvic girdle

== ENCOUNTER → 2019-12-20 | Outpatient (CLI) | payer OTHER ==
[2019-12-20 13:49] LABS: Basophils % (A) 0 %; Eosinophils # (A) 0.1 k/uL (0-0.7); Eosinophils % (A) 1 %; HCT 45.9 % (34.0-46.0); HGB 15.6 gm/dL (11.4-16.0); Lymphocytes # (A) 2.2 k/uL (1.0-4.8); Lymphocytes % (A) 29 %; MCH 31.4 pg (25.0-35.0); MCHC 33.9 g/dL (31.0-37.0); MCV 92.6 fL (80.0-100.0); Mean Platelet Volume 7.5; Monocytes # (A) 0.3 k/uL (0-1.0); Monocytes % (A) 4 %; Neutrophils # (A) 4.9 k/uL (1.3-7.7); Neutrophils % (A) 64 %; Platelet Count 224 k/uL (150-450); RBC 4.96 m/uL (3.80-5.40); RDW 13.2 % (11.5-15.5); WBC 7.7 k/uL (3.8-10.6)
[2019-12-20 13:51] LABS: Appearance,Urine Clear (Clear); Bilirubin,Urine Negative (Negative); Blood,Urine Negative (Negative); Color,Urine Light Yellow; Glucose,Urine (UA) Negative (Negative); Ketones,Urine Negative (Negative); Leukocyte Esterase,Urine Negative (Negative); Nitrite,Urine Negative (Negative); Protein,Urine Negative (Negative); Specific Gravity,Urine 1.012 (1.001-1.035); Urobilinogen,Urine <2.0 mg/dL (<2.0)
[2019-12-20 19:35] LABS: African American GFR (CKD) 117.9 (60.0-200.0); Albumin/Globulin Ratio 2.38 (1.60-3.17); Anion Gap 10.3 mmol/L (4.00-12.00); BUN/Creat Ratio 26.25 Ratio (12.00-20.00); Calcium 9.8 mg/dL (8.7-10.3); Carbon Dioxide 25.7 mmol/L (21.6-31.8); Globulin 2.1 g/dL (1.6-3.3); Non-African American GFR(CKD) 101.8 (60.0-200.0); Phosphorus 3.1 mg/dL (2.4-5.1); Potassium 3.1 mmol/L (3.5-5.5); Total Bilirubin 0.3 mg/dL (0.3-1.2); Total Protein 7.1 g/dL (6.2-8.2)
== END | disposition home or self-care (01) ==
LOC: LABWHC1 12:11
PROVIDERS: ATTEND Orthopaedic Surgery
DX: M79.671 Pain in right foot (principal); S92.214A Nondisplaced fracture of cuboid bone of right foot, initial encounter for closed fracture; S90.31XA Contusion of right foot, initial encounter
CPT/HCPCS: 36415; 80053; 81003; 82306; 82310; 82652; 83970; 84100; 85025

== ENCOUNTER → 2021-11-14 | Outpatient (CLI) | payer BC, OTHER ==
--- NOTE | 2021-11-14 12:00 | USB ---
Reason for Exam: Clinical finding. Technique: Method: Targeted. Findings: The upper outer quadrant of the left breast, the area of palpable concern of the left breast, the axilla of the left breast and the retroareolar of the left breast were scanned. Targeted ultrasound upper outer quadrant 12:00 to 3:00 including the subareolar region and axilla. Scanning was performed at the patient's palpable site of concern both supine and sitting up. No solid or cystic lesion is identified. No axillary lymphadenopathy. Overall Assessment: Benign, BI-RAD 2 Management: Surgical Consultation of the left breast. 1. Recommend surgical referral for more detailed physical exam assessment given that the area is a new palpable finding for the patient along with the patient's strong family history. 2. If the patient has greater than 20% lifetime risk for the development of breast cancer, the patient may qualify for alternating screening mammogram and breast MRI. This could begin 10 years prior to the date of breast cancer in her first-degree relative. Otherwise, routine screening to begin at 40 years of age. 3. Patient should continue monthly self breast exams. Electronically signed and approved by: Clarice Barnes M.D. Radiologist
== END | disposition home or self-care (01) ==
LOC: RADUSWWP 08:56
PROVIDERS: ATTEND Family Medicine
DX: N64.52 Nipple discharge (principal); N63.0 Unspecified lump in unspecified breast; N64.4 Mastodynia

== ENCOUNTER 2021-12-06 12:51 | Emergency (ER) | payer BC, OTHER ==
[2021-12-06 13:00] VITALS: TEMP 97.9
--- NOTE | 2021-12-06 13:28 | XR ---
EXAMINATION TYPE: XR wrist complete LT DATE OF EXAM: 12/06/2021 CLINICAL HISTORY: Pain after fall injury. TECHNIQUE: Frontal, lateral and oblique images of the left wrist are obtained. 4 view scaphoid view is performed. COMPARISON: Left wrist x-ray July 06, 2014 FINDINGS: There is no acute fracture/dislocation evident in the left wrist. The carpal joint spaces are maintained. The overlying soft tissue appears unremarkable. IMPRESSION: There is no acute fracture or dislocation in the left wrist. No significant change from prior.
--- NOTE | 2021-12-06 13:40 | ED ---
General Adult HPI - General Chief complaint: Extremity Injury, Upper Stated complaint: Fall @2330/Lt Wrist Injury Time Seen by Provider: 12/06/21 13:30 Source: patient, RN notes reviewed, old records reviewed Mode of arrival: ambulatory Limitations: no limitations - History of Present Illness Initial comments: This is a 26-year-old female presents emergency Department complaining of left wrist pain. Patient states she fell yesterday and hit the back of her wrist on the ground per patient states it's the ulnar aspect of her wrist. Patient denies any elbow pain patient denies any shoulder pain patient denies any other problems at this time. Patient denies hitting her head or hitting her neck. Patient's only complaint is medial distal ulnar pain. - Related Data Home Medications Medication Instructions Recorded Confirmed ARIPiprazole [Abilify] 4 mg PO DAILY 07/11/18 10/18/19 Acetaminophen Tab [Tylenol Tab] 1,000 mg PO Q6HR PRN 07/11/18 10/18/19 DULoxetine HCL [Cymbalta] 60 mg PO HS 07/11/18 10/18/19 Topiramate [Topamax] 100 mg PO BID 07/11/18 10/18/19 traMADol HCL [Ultram] 50 mg PO Q6H PRN 07/11/18 10/18/19 Previous Rx's Medication Instructions Recorded Ertapenem [INVanz] 1 gm IVPB Q24H #21 bag 07/13/18 Ibuprofen [Motrin] 600 mg PO Q8HR PRN #20 tab 10/18/19 Ibuprofen [Motrin] 600 mg PO Q6HR PRN #20 tab 12/06/21 Allergies Allergy/AdvReac Type Severity Reaction Status Date / Time amoxicillin Allergy Anaphylaxis Verified 12/06/21 12:58 cefaclor [From Ceclor] Allergy Anaphylaxis Verified 12/06/21 12:58 ciprofloxacin [From Cipro] Allergy Anaphylaxis Verified 12/06/21 12:58 ciprofloxacin HCl Allergy Anaphylaxis Verified 12/06/21 12:58 [From Cipro] levofloxacin [From Levaquin] Allergy Dyspnea Verified 12/06/21 12:58 Penicillins Allergy Anaphylaxis Verified 12/06/21 12:58 sulfamethoxazole Allergy Dyspnea Verified 12/06/21 12:58 [From Bactrim] and rash trimethoprim [From Bactrim] Allergy Dyspnea Verified 12/06/21 12:58 and rash Review of Systems ROS Statement: Those systems with pertinent positive or pertinent negative responses have been documented in the HPI. ROS Other: All systems not noted in ROS Statement are negative. 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, gestational diabetes first , pelvic congestion syndrome, meniere's History of Any Multi-Drug Resistant Organisms: None Reported Past Surgical History: Section, Ear Surgery, Hysterectomy, Tonsillectomy Additional Past Surgical History / Comment(s): ablation, tubal Past Anesthesia/Blood Transfusion Reactions: Motion Sickness Past Psychological History: Anxiety, Depression Past Alcohol Use History: None Reported Past Drug Use History: None Reported - Past Family History Mother Family Medical History: No Reported History General Exam - General Exam Comments Initial Comments: GENERAL Patient is well-developed and well-nourished. Patient is in mild distress. EYES Patient's pupils are equal and round. Extraocular motion is intact SKIN Unremarkable NEURO The patient is alert and oriented 3 PYSCH Patient has normal interpersonal interactions. MUSCULOSKELETAL Patient's left wrist has a bruise over the distal ulna. Patient has no scaphoid tenderness and no hand tenderness. Limitations: no limitations Course Vital Signs 12/06/21 12:58 Temperature 97.9 F Pulse Rate 115 H Respiratory 20 Rate Blood Pressure 136/87 O2 Sat by Pulse 100 Oximetry Medical Decision Making - Medical Decision Making X-ray of the wrist shows no acute abnormality. Disposition Clinical Impression: Wrist sprain Disposition: HOME SELF-CARE Instructions (If sedation given, give patient instructions): Wrist Sprain (ED) Prescriptions: Ibuprofen [Motrin] 600 mg PO Q6HR PRN #20 tab PRN Reason: For pain Is patient prescribed a controlled substance at d/c from ED?: No Referrals: Kane Murrell MD [Primary Care Provider] - 1-2 days Time of Disposition: 13:39
[2021-12-06 14:04] VITALS: BP 124/84; PULSE 110; RESP 16
== END 2021-12-06 14:04 | disposition home or self-care (01) ==
LOC: EC 12:51
DX: S63.92XA Sprain of unspecified part of left wrist and hand, initial encounter (principal); I10 Essential (primary) hypertension; F32.A Depression, unspecified; F41.9 Anxiety disorder, unspecified; Z88.0 Allergy status to penicillin; Z88.1 Allergy status to other antibiotic agents; Z88.2 Allergy status to sulfonamides; Z79.899 Other long term (current) drug therapy; W19.XXXA Unspecified fall, initial encounter
CPT/HCPCS: 99283

== ENCOUNTER → 2021-12-20 | Outpatient (CLI) | payer BC, OTHER ==
[2021-12-20 09:16] VITALS: BP 127/82; PULSE 91; RESP 17; TEMP 98.5
--- NOTE | 2021-12-20 09:43 | P.GSHP ---
History of Present Illness H&P Date: 12/20/21 Chief Complaint: left breast mass Nella is a 26 year old white female seen in consultation for Dr. Murrell regarding a mass in her left breast. An ultrasound was done on 11-14-21 of the area of concern in driss left breast and was negative. She has felt the mass for several months. It is not painful. It has not changed in size. She had a hysterectomy several years ago but did not take her ovaries. The mass has not changed. She had not had anything like this in the past. She has not had any trauma, infection, prior surgery on her breast. She is not complaining of any nipple discharge or skin changes in her breast. Caffiene: rare nicotine: none chocolate: none BCP: 10 years ago, used them for about 4 years total Family History: mother: breast cancer at 38, doing well lumpectomy maternal grandmother: at 43 of breast cancer maternal great grandmother: breast and ovarian cancer in her 50's maternal great aunt: ovarian cancer maternal great cousin: ovarian and uterine paternal grandmother: breast , pancreatic cancer paternal great grandmother: breast cancer paternal uant: throat cancer The patient is having genetic testing performed. Hormonal History: menarche: 9 M1 breast fed: 2 weeks, age at first : 19 hysterectomy at 23 for bleeding; left her ovaries Surgical History: uterine ablation hysterectomy 2 tubes in ears tonsils and adenoids Medical History: anxiety/depression meiners disease Social History: nicotine: none alcohol: none drugs:none - Constitutional Constitutional: Denies chills, Denies fever - EENT Eyes: denies blurred vision, denies pain Ears: bilateral: tinnitus, deny: decreased hearing Ears, nose, mouth and throat: Denies headache, Denies sore throat - Breasts Breasts: bilateral: as per HPI - Cardiovascular Cardiovascular: Denies chest pain, Denies shortness of breath - Respiratory Respiratory: Denies cough, Denies 7 - Gastrointestinal Gastrointestinal: Denies abdominal pain, Denies diarrhea, Denies nausea, Denies vomiting - Genitourinary (Female) Genitourinary: Denies dysuria, Denies hematuria - Menstruation Menstruation: Reports post hysterectomy - Musculoskeletal Musculoskeletal: Denies myalgias - Integumentary Integumentary: Denies pruritus, Denies rash - Neurological Neurological: Denies numbness, Denies weakness - Psychiatric Psychiatric: Reports anxiety, Reports depression - Endocrine Endocrine: Denies fatigue, Denies weight change - Hematologic/Lymphatic Comment: none - Allergic/Immunologic Allergic/Immunologic: Reports seasonal allergies 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, gestational diabetes first , pelvic congestion syndrome, meniere's History of Any Multi-Drug Resistant Organisms: None Reported Past Surgical History: Section, Ear Surgery, Hysterectomy, Tonsillectomy Additional Past Surgical History / Comment(s): ablation, tubal Past Anesthesia/Blood Transfusion Reactions: Motion Sickness Past Psychological History: Anxiety, Depression Additional Psychological History / Comment(s): manic bipolar Smoking Status: Never smoker Past Alcohol Use History: None Reported Past Drug Use History: None Reported - Past Family History Mother Family Medical History: No Reported History Medications and Allergies Home Medications Medication Instructions Recorded Confirmed Type Acetaminophen Tab [Tylenol Tab] 1,000 mg PO Q6HR PRN 07/11/18 12/20/21 History Topiramate [Topamax] 100 mg PO BID 07/11/18 12/20/21 History Ibuprofen [Motrin] 600 mg PO Q8HR PRN #20 tab 10/18/19 12/20/21 Rx Brexpiprazole [Rexulti] 0.5 mg PO DAILY 12/20/21 12/20/21 History Venlafaxine HCl [Effexor] 100 mg PO DAILY 12/20/21 12/20/21 History Allergies Allergy/AdvReac Type Severity Reaction Status Date / Time amoxicillin Allergy Anaphylaxis Verified 12/20/21 09:11 cefaclor [From Ceclor] Allergy Anaphylaxis Verified 12/20/21 09:11 ciprofloxacin [From Cipro] Allergy Anaphylaxis Verified 12/20/21 09:11 ciprofloxacin HCl Allergy Anaphylaxis Verified 12/20/21 09:11 [From Cipro] levofloxacin [From Levaquin] Allergy Dyspnea Verified 12/20/21 09:11 Penicillins Allergy Anaphylaxis Verified 12/20/21 09:11 sulfamethoxazole Allergy Dyspnea Verified 12/20/21 09:11 [From Bactrim] and rash trimethoprim [From Bactrim] Allergy Dyspnea Verified 12/20/21 09:11 and rash Surgical - Exam Vital Signs Temp Pulse Resp BP Pulse Ox 98.5 F 91 17 127/82 98 12/20/21 09:13 12/20/21 09:13 12/20/21 09:13 12/20/21 09:13 12/20/21 09:13 BMI: 31.2 - General no distress - Eyes normal ocular movement - Neck trachea midline - Respiratory normal respiratory effort, clear to auscultation - Cardiovascular Rhythm: regular Heart Sounds: normal: S1, S2 - Abdomen Abdomen: soft, non tender, no guarding, no rigid, no rebound - Integumentary normal turger - Neurologic no disoriented, no combative - Musculoskeletal normal gait, normal posture - Psychiatric oriented to time, oriented to person, oriented to place, speech is normal, memory intact Breast Exam: BRA: 42D inspection: Left breast slightly larger than right breast, bilateral grade 2 ptosis Palpation: Right breast: Multiple transitional exam fibrocystic changes no discrete dominant masses or nodules of concern Right axilla: No adenopathy of concern Left breast: Multi-positional exam fibrocystic changes, fibrocystic change more prominent in the lateral aspect felt to be most likely lobulated breast tissue Left axilla: No adenopathy of concern Results Ultrasound personally reviewed Assessment and Plan Assessment: Impression: Palpable change left breast lateral aspect/most likely prominent breast tissue Fibrocystic breast changes Strong family history of cancer Plan: Patient is having genetic testing performed Recommend bilateral mammogram We'll see patient again after results of genetic test to further determine surveillance Consider core biopsy palpable change left breast CC: Dr. Murrell
== END | disposition home or self-care (01) ==
LOC: WWCWWP 09:06
PROVIDERS: ATTEND Surgery
DX: Z53.9 Procedure and treatment not carried out, unspecified reason (principal)

== ENCOUNTER → 2022-01-10 | Outpatient (CLI) | payer BC, OTHER ==
--- NOTE | 2022-01-10 15:50 | MM ---
Reason for Exam: Clinical finding. Baseline mammogram. Indicated Problems: Lump or thickening of the left side for 4 Month(s). Patient History: Menarche at age 9. First Full-Term at age 19. Hysterectomy at age 23. Patient tested for BRCA2 outcome was negative. Patient tested for BRCA1 outcome was negative. Maternal grandmother had breast cancer, age 42. Paternal grandmother had breast cancer, age 70. Mother had breast cancer, age 38. Last menstrual period: Prior Study Comparison: Patient's first Mammogram. Tissue Density: The breast tissue is heterogeneously dense. This may lower the sensitivity of mammography. Findings: Analyzed By CAD. Asymmetric density upper left breast seen on the MLO view zone C. Otherwise no evidence for mass. No suspicious microcalcifications. Overall Assessment: Incomplete: need additional imaging evaluation, BI-RAD 0 Management: Diagnostic Breast Ultrasound of the left breast. A clinical breast exam by your physician is recommended on an annual basis and results should be correlated with mammographic findings. This exam should not preclude additional follow-up of suspicious palpable abnormalities. Results were given to the patient verbally at the time of exam. Electronically signed and approved by: Mike Gunter M.D. Radiologis
--- NOTE | 2022-01-10 15:50 | USB ---
Reason for Exam: Clinical finding. Patient History: Menarche at age 9. First Full-Term at age 19. Hysterectomy at age 23. Patient tested for BRCA2 outcome was negative. Patient tested for BRCA1 outcome was negative. Maternal grandmother had breast cancer, age 42. Paternal grandmother had breast cancer, age 70. Mother had breast cancer, age 38. Technique: Method: Targeted. Findings: The upper outer quadrant of the left breast, the axilla of the left breast and the retroareolar of the left breast were scanned. No solid or cystic masses are identified.. Overall Assessment: Incomplete: need additional imaging evaluation, BI-RAD 0 Management: Diagnostic Breast MRI of both breasts. A clinical breast exam by your physician is recommended on an annual basis and results should be correlated with mammographic findings. Electronically signed and approved by: Mike Gunter M.D. Radiologis
== END | disposition home or self-care (01) ==
LOC: RADMAMWWP 11:13
PROVIDERS: ATTEND Surgery
DX: N63.0 Unspecified lump in unspecified breast (principal)
CPT/HCPCS: 77062; 77066

== ENCOUNTER 2022-04-01 21:08 | Emergency (ER) | payer BC, OTHER ==
[2022-04-01 21:26] VITALS: BP 169/105; PULSE 95; RESP 18; TEMP 98
[2022-04-01] MEDS ORDERED: SODIUM CHLORIDE 0.9% 1,000 ML IV ONE (22:16)
[2022-04-01] MEDS ORDERED: KETOROLAC 15 MG/ML 1 ML VIAL IVP STA (22:16)
[2022-04-01] MEDS ORDERED: ONDANSETRON 4 MG/2 ML VIAL IVP STA (22:16)
[2022-04-01 22:35] LABS: Basophils # (A) 0.1 k/uL (0-0.2); Basophils % (A) 1 %; Eosinophils # (A) 0.1 k/uL (0-0.7); Eosinophils % (A) 1 %; HGB 14.7 gm/dL (11.4-16.0); Lymphocytes # (A) 2.2 k/uL (1.0-4.8); Lymphocytes % (A) 25 %; MCH 31.1 pg (25.0-35.0); MCHC 34.2 g/dL (31.0-37.0); MCV 90.9 fL (80.0-100.0); Mean Platelet Volume 7.8; Monocytes # (A) 0.5 k/uL (0-1.0); Monocytes % (A) 6 %; Neutrophils # (A) 6.1 k/uL (1.3-7.7); Neutrophils % (A) 67 %; Platelet Count 244 k/uL (150-450); RBC 4.73 m/uL (3.80-5.40); RDW 12.9 % (11.5-15.5); WBC 9.1 k/uL (3.8-10.6)
[2022-04-01 22:45] LABS: ALT 17 U/L (4-34); AST 23 U/L (14-36); African American GFR (CKD) >90 (>60 ml/min/1.73 sqM); Albumin 4.8 g/dL (3.5-5.0); Alkaline Phosphatase 89 U/L (38-126); Anion Gap 13 mmol/L; Blood Urea Nitrogen 10 mg/dL (7-17); Calcium 9.3 mg/dL (8.4-10.2); Carbon Dioxide 20 mmol/L (22-30); Chloride 110 mmol/L (98-107); Glucose 72 mg/dL (74-99); Lipase 236 U/L (23-300); Non-African American GFR(CKD) >90 (>60 ml/min/1.73 sqM); Potassium 3.7 mmol/L (3.5-5.1); Sodium 143 mmol/L (137-145); Total Bilirubin 0.2 mg/dL (0.2-1.3); Total Protein 7.2 g/dL (6.3-8.2)
--- NOTE | 2022-04-01 22:59 | CT ---
EXAMINATION TYPE: CT abdomen pelvis w con DATE OF EXAM: 04/01/2022 COMPARISON: None HISTORY: rlq pain, nausea, vomiting, fever CT DLP: 1035.9 mGycm Automated exposure control for dose reduction was used. CONTRAST: Performed with IV Contrast, patient injected with 100 mL of Isovue 300. Images obtained from the diaphragm to the floor of the pelvis with by mouth and IV contrast. Lung bases are clear. No pleural effusion. Heart size is normal. No pericardial effusion. Liver spleen and stomach pancreas appear intact. The bile ducts are not dilated. Gallbladder appears normal. There is no adrenal mass. There is satisfactory contrast opacification of the kidneys. No hydronephro sis. Ureters are not dilated. No retroperitoneal adenopathy. Bladder is almost empty. No inguinal her abdi. No free fluid in the pelvis. No evidence of pelvic mass. Appendix is inferior and appears normal. There is no mesenteric edema. No ascites or free air. No sig n of a bowel obstruction. The lumbar vertebrae have normal alignment. No compression fracture. Posterior elements are intact. B romelia pelvis is intact. The hip joints are intact. IMPRESSION: No acute abnormality of the abdomen and pelvis. Normal appendix.
[2022-04-01 23:15] LABS: Appearance,Urine Clear (Clear); Bilirubin,Urine Negative (Negative); Blood,Urine Negative (Negative); Calcium Oxalate Crystals,Urine Few /hpf; Color,Urine Yellow; Glucose,Urine (UA) Negative (Negative); Ketones,Urine Trace (Negative); Leukocyte Esterase,Urine Negative (Negative); Mucus,Urine Many /hpf; Nitrite,Urine Negative (Negative); Protein,Urine 1+ (Negative); RBC,Urine <1 /hpf (0-5); Specific Gravity,Urine 1.033 (1.001-1.035); Squamous Epithelial Cell,Urine 2 /hpf (0-4); WBC,Urine 1 /hpf (0-5)
[2022-04-01] MEDS ORDERED: ACET/COD 300 MG/30 MG STARTER PACK 6 TAB BTL PO STA (23:51)
[2022-04-01] MEDS ORDERED: ONDANSETRON 4 MG ODT STARTER PACK 2 TAB BTL PO STA (23:52)
--- NOTE | 2022-04-01 23:55 | ED ---
Abdominal Pain HPI - General Chief Complaint: Abdominal Pain Stated Complaint: ABD Pain Time Seen by Provider: 04/01/22 22:06 Source: patient Mode of arrival: ambulatory Limitations: no limitations - History of Present Illness Initial Comments: 26-year-old female with past history of hysterectomy, section, fibromyalgia who presents to the emergency room with right lower quadrant abdominal pain. States that the pain began last night and has worsened in severity. Describes as a cramping sensation that radiates around to her right flank. She has associated nausea, fevers up to 102. Admits vomiting. Denies dysuria, hematuria or voiding. No diarrhea, black or bloody stools. She thought she was constipated and therefore took a Senokot yesterday. No abnormal vaginal discharge. No other alleviating, precipitating or modifying factors - Related Data Home Medications Medication Instructions Recorded Confirmed Acetaminophen Tab [Tylenol Tab] 1,000 mg PO Q6HR PRN 07/11/18 01/23/22 Topiramate [Topamax] 100 mg PO BID 07/11/18 01/23/22 Brexpiprazole [Rexulti] 0.5 mg PO DAILY 12/20/21 01/23/22 Venlafaxine HCl [Effexor] 100 mg PO DAILY 12/20/21 01/23/22 Previous Rx's Medication Instructions Recorded Ibuprofen [Motrin] 600 mg PO Q8HR PRN #20 tab 10/18/19 Acetaminophen-Codeine 300-30mg 1 tab PO Q4H PRN #18 tablet 04/01/22 [Tylenol #3] Magnesium Hydroxide [Milk of 400 mg PO ONCE #800 ml 04/01/22 Magnesia] Ondansetron Odt [Zofran Odt] 4 mg PO Q8HR PRN #15 tab 04/01/22 Allergies Allergy/AdvReac Type Severity Reaction Status Date / Time amoxicillin Allergy Anaphylaxis Verified 04/01/22 21:26 cefaclor [From Ceclor] Allergy Anaphylaxis Verified 04/01/22 21:26 ciprofloxacin [From Cipro] Allergy Anaphylaxis Verified 04/01/22 21:26 ciprofloxacin HCl Allergy Anaphylaxis Verified 04/01/22 21:26 [From Cipro] levofloxacin [From Levaquin] Allergy Dyspnea Verified 04/01/22 21:26 Penicillins Allergy Anaphylaxis Verified 04/01/22 21:26 sulfamethoxazole Allergy Dyspnea Verified 04/01/22 21:26 [From Bactrim] and rash trimethoprim [From Bactrim] Allergy Dyspnea Verified 04/01/22 21:26 and rash Review of Systems ROS Statement: Those systems with pertinent positive or pertinent negative responses have been documented in the HPI. ROS Other: All systems not noted in ROS Statement are negative. Past Medical History Past Medical History: Fibromyalgia, Hypertension Additional Past Medical History / Comment(s): migrainees, constipation, arthr itis in left ankle and wrist, gestational diabetes first , pelvic congestion syndrome, meniere's History of Any Multi-Drug Resistant Organisms: None Reported Past Surgical History: Section, Ear Surgery, Hysterectomy, Tonsillectomy Additional Past Surgical History / Comment(s): ablation, tubal Past Anesthesia/Blood Transfusion Reactions: Motion Sickness Past Psychological History: Anxiety, Depression Smoking Status: Never smoker Past Alcohol Use History: None Reported Past Drug Use History: Marijuana - Past Family History Mother Family Medical History: No Reported History General Exam Limitations: no limitations General appearance: alert, in no apparent distress Head exam: Present: atraumatic, normocephalic, normal inspection Eye exam: Present: normal appearance, PERRL, EOMI. Absent: scleral icterus, conjunctival injection, periorbital swelling ENT exam: Present: normal exam, mucous membranes moist Neck exam: Present: normal inspection. Absent: tenderness, meningismus, lymphadenopathy Respiratory exam: Present: normal lung sounds bilaterally. Absent: respiratory distress, wheezes, rales, rhonchi, stridor Cardiovascular Exam: Present: regular rate, normal rhythm, normal heart sounds. Absent: systolic murmur, diastolic murmur, rubs, gallop, clicks GI/Abdominal exam: Present: soft, tenderness (rlq), normal bowel sounds. Absent: distended, guarding, rebound, rigid Extremities exam: Present: normal inspection, full ROM, normal capillary refill. Absent: tenderness, pedal edema, joint swelling, calf tenderness Back exam: Present: normal inspection Neurological exam: Present: alert, oriented X3, CN II-XII intact Psychiatric exam: Present: normal affect, normal mood Skin exam: Present: warm, dry, intact, normal color. Absent: rash Course Vital Signs 04/01/22 21:24 Temperature 98 F Pulse Rate 95 Respiratory 18 Rate Blood Pressure 169/105 O2 Sat by Pulse 100 Oximetry Medical Decision Making - Medical Decision Making Upon arrival patient was placed into room 8. Thorough history and physical exam was performed. IV access is established and laboratory studies are conducted. Patient was given Toradol and Zofran for pain control and nausea. Additionally given a liter bolus normal saline. Laboratory studies are conducted and reviewed. Glucose is low at 72. CT of the abdomen and pelvis is performed which does not demonstrate any acute abnormality the abdomen and pelvis. Her appendix looks normal. Results are discussed the patient. Does report to improvement in her pain however it's not entirely gone. I did discuss diagnosis, differential and treatment options. Patient will be discharged home with the Zofran and Tylenol 3 starter pack. Additional medications sent to the pharmacy. Patient is instructed to take them as directed and follow-up with her doctor. Return for any new or worsening symptoms. Patient was agreeable to the plan and she was discharged home in stable condition - Lab Data Result diagrams: 04/01/22 22:28 04/01/22 22:28 Lab Results 04/01/22 04/01/22 04/01/22 Range/Units 22:28 22:28 22:44 WBC 9.1 (3.8-10.6) k/uL RBC 4.73 (3.80-5.40) m/uL Hgb 14.7 (11.4-16.0) gm/dL Hct 43.0 (34.0-46.0) % MCV 90.9 (80.0-100.0) fL MCH 31.1 (25.0-35.0) pg MCHC 34.2 (31.0-37.0) g/dL RDW 12.9 (11.5-15.5) % Plt Count 244 (150-450) k/uL MPV 7.8 Neutrophils % 67 % Lymphocytes % 25 % Monocytes % 6 % Eosinophils % 1 % Basophils % 1 % Neutrophils # 6.1 (1.3-7.7) k/uL Lymphocytes # 2.2 (1.0-4.8) k/uL Monocytes # 0.5 (0-1.0) k/uL Eosinophils # 0.1 (0-0.7) k/uL Basophils # 0.1 (0-0.2) k/uL Sodium 143 (137-145) mmol/L Potassium 3.7 (3.5-5.1) mmol/L Chloride 110 H (98-107) mmol/L Carbon Dioxide 20 L (22-30) mmol/L Anion Gap 13 mmol/L BUN 10 (7-17) mg/dL Creatinine 0.88 (0.52-1.04) mg/dL Est GFR (CKD-EPI)AfAm >90 (>60 ml/min/1.73 sqM) Est GFR (CKD-EPI)NonAf >90 (>60 ml/min/1.73 sqM) Glucose 72 L (74-99) mg/dL Calcium 9.3 (8.4-10.2) mg/dL Total Bilirubin 0.2 (0.2-1.3) mg/dL AST 23 (14-36) U/L ALT 17 (4-34) U/L Alkaline Phosphatase 89 (38-126) U/L Total Protein 7.2 (6.3-8.2) g/dL Albumin 4.8 (3.5-5.0) g/dL Lipase 236 (23-300) U/L Urine Color Yellow Urine Appearance Clear (Clear) Urine pH 6.0 (5.0-8.0) Ur Specific [place] 1.033 (1.001-1.035) Urine Protein 1+ H (Negative) Urine Glucose (UA) Negative (Negative) Urine Ketones Trace H (Negative) Urine Blood Negative (Negative) Urine Nitrite Negative (Negative) Urine Bilirubin Negative (Negative) Urine Urobilinogen 3.0 (<2.0) mg/dL Ur Leukocyte Esterase Negative (Negative) Urine RBC <1 (0-5) /hpf Urine WBC 1 (0-5) /hpf Ur Squamous Epith Cells 2 (0-4) /hpf Calcium Oxalate Crystal Few H (None) /hpf Urine Mucus Many H (None) /hpf Disposition Clinical Impression: Abdominal pain Disposition: HOME SELF-CARE Condition: Stable Instructions (If sedation given, give patient instructions): Abdominal Pain (ED) Additional Instructions: Take the Zofran for nausea, Tylenol 3 for pain control and milk of magnesia for constipation. Monitor your symptoms. If you have new symptoms or worsening pain, please return to the emergency department for reevaluation Prescriptions: Magnesium Hydroxide [Milk of Magnesia] 400 mg PO ONCE #800 ml Acetaminophen-Codeine 300-30mg [Tylenol #3] 1 tab PO Q4H PRN #18 tablet PRN Reason: pain Ondansetron Odt [Zofran Odt] 4 mg PO Q8HR PRN #15 tab PRN Reason: Nausea Is patient prescribed a controlled substance at d/c from ED?: Yes When asked, does pt state using other controlled substances?: No If prescribed controlled substance>3 days was MAPS reviewed?: Prescribed <3 Days Referrals: Kane Murrell MD [Primary Care Provider] - 1-2 days Time of Disposition: 23:55
== END 2022-04-02 00:11 | disposition home or self-care (01) ==
LOC: EC 21:08
DX: R10.31 Right lower quadrant pain (principal); I10 Essential (primary) hypertension; F41.9 Anxiety disorder, unspecified; F32.A Depression, unspecified; F12.90 Cannabis use, unspecified, uncomplicated; Z88.0 Allergy status to penicillin; Z88.2 Allergy status to sulfonamides; Z79.899 Other long term (current) drug therapy
CPT/HCPCS: 36415; 80053; 83690; 85025; 81001; 74177; 99284; 96374; 96375; 96361 ×2; J2405; J1885; S0119; Q9967

== ENCOUNTER 2022-05-17 01:17 | Emergency (ER) | payer BC, OTHER ==
[2022-05-17] MEDS ORDERED: MORPHINE SULFATE 4 MG/ML SYRINGE IV STA (01:50)
[2022-05-17] MEDS ORDERED: ONDANSETRON 4 MG/2 ML VIAL IVP STA (01:50)
[2022-05-17] MEDS ORDERED: SODIUM CHLORIDE 0.9% 1,000 ML IV STA (01:50)
[2022-05-17 02:09] VITALS: RESP 16
--- NOTE | 2022-05-17 02:20 | ED ---
General Adult HPI - General Chief complaint: Abdominal Pain Stated complaint: RT flank pain Time Seen by Provider: 05/17/22 01:30 Source: patient, RN notes reviewed Mode of arrival: ambulatory Limitations: no limitations - History of Present Illness Initial comments: 26-year-old female presents to the emergency Department with complaints of right lower quadrant pain that extends to the periumbilical region x2 days. States symptoms are accompanied by diarrhea which she has had 3-4 episodes for the past 2 days. States prior to that, she was having mucousy stool. Reports taking Motrin and Pepto-Bismol with no improvement. States she has mild nausea. No aggravating or alleviating factors. Reports elevated temperature yesterday. States she has some urinary discomfort as well. Denies headache, dizziness, chest pain, shortness of breath, vomiting, hematuria, and hematochezia - Related Data Home Medications Medication Instructions Recorded Confirmed Acetaminophen Tab [Tylenol Tab] 1,000 mg PO Q6HR PRN 07/11/18 01/23/22 Topiramate [Topamax] 100 mg PO BID 07/11/18 01/23/22 Brexpiprazole [Rexulti] 0.5 mg PO DAILY 12/20/21 01/23/22 Venlafaxine HCl [Effexor] 100 mg PO DAILY 12/20/21 01/23/22 Previous Rx's Medication Instructions Recorded Ibuprofen [Motrin] 600 mg PO Q8HR PRN #20 tab 10/18/19 Acetaminophen-Codeine 300-30mg 1 tab PO Q4H PRN #18 tablet 04/01/22 [Tylenol #3] Magnesium Hydroxide [Milk of 400 mg PO ONCE #800 ml 04/01/22 Magnesia] Ondansetron Odt [Zofran Odt] 4 mg PO Q8HR PRN #15 tab 04/01/22 Ondansetron Odt [Zofran Odt] 4 mg PO Q8HR PRN #10 tab 05/17/22 Allergies Allergy/AdvReac Type Severity Reaction Status Date / Time amoxicillin Allergy Anaphylaxis Verified 05/17/22 01:29 cefaclor [From Ceclor] Allergy Anaphylaxis Verified 05/17/22 01:29 ciprofloxacin [From Cipro] Allergy Anaphylaxis Verified 05/17/22 01:29 ciprofloxacin HCl Allergy Anaphylaxis Verified 05/17/22 01:29 [From Cipro] levofloxacin [From Levaquin] Allergy Dyspnea Verified 05/17/22 01:29 Penicillins Allergy Anaphylaxis Verified 05/17/22 01:29 sulfamethoxazole Allergy Dyspnea Verified 05/17/22 01:29 [From Bactrim] and rash trimethoprim [From Bactrim] Allergy Dyspnea Verified 05/17/22 01:29 and rash Review of Systems ROS Statement: Those systems with pertinent positive or pertinent negative responses have been documented in the HPI. ROS Other: All systems not noted in ROS Statement are negative. 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, gestational diabetes first , pelvic congestion syndrome, meniere's History of Any Multi-Drug Resistant Organisms: None Reported Past Surgical History: Section, Ear Surgery, Hysterectomy, Tonsillectomy Additional Past Surgical History / Comment(s): ablation, tubal Past Anesthesia/Blood Transfusion Reactions: Motion Sickness Past Psychological History: Anxiety, Depression Smoking Status: Never smoker Past Alcohol Use History: None Reported Past Drug Use History: Marijuana - Past Family History Mother Family Medical History: No Reported History General Exam Limitations: no limitations General appearance: alert, in no apparent distress ENT exam: Present: normal exam, normal oropharynx, mucous membranes moist Respiratory exam: Present: normal lung sounds bilaterally. Absent: respiratory distress, wheezes, rales, rhonchi, stridor Cardiovascular Exam: Present: regular rate, normal rhythm, normal heart sounds. Absent: systolic murmur, diastolic murmur, rubs, gallop, clicks GI/Abdominal exam: Present: soft, tenderness (RLQ and periumbilical area), rebound (RLQ), normal bowel sounds. Absent: distended, guarding, rigid Back exam: Absent: CVA tenderness (R), CVA tenderness (L) Neurological exam: Present: alert, oriented X3, normal gait Psychiatric exam: Present: normal affect, normal mood Skin exam: Present: warm, dry, intact, normal color Course Vital Signs 05/17/22 05/17/22 01:23 02:09 Temperature 97.6 F 98.8 F Pulse Rate 97 84 Respiratory 18 16 Rate Blood Pressure 138/89 125/85 O2 Sat by Pulse 100 98 Oximetry - Reevaluation(s) Reevaluation #1: 05/17/22 03:20 Patient updated on results. Stressed the importance of dietary modifications. Encouraged follow-up with PCP. Medical Decision Making - Medical Decision Making This is a 26-year-old female with a past medical history of fibromyalgia and migraines who presents to the emergency department for evaluation of right lower quadrant abdominal pain that extends to the periumbilical region and is accompanied by loose mucousy stool. Upon exam, patient is well-appearing and in no acute distress. She does have rebound tenderness to the right lower quadrant. Laboratory studies were obtained and are unremarkable. She was given IV fluids, pain medicine, and Zofran with improvement. CT of the abdomen and pelvis was negative. Results were discussed with patient. Explained concern for diverticulitis given recurrent nature of her discomfort and the associated mucousy stool. She is encouraged to make dietary changes and to follow up with her PCP for a recheck on Thursday. Zofran prescribed. Return parameters were discussed in detail. Patient verbalizes understanding and agrees with this plan. Attending: Elyse. - Lab Data Result diagrams: 05/17/22 02:02 05/17/22 02:02 Lab Results 05/17/22 05/17/22 05/17/22 Range/Units 01:53 01:53 02:02 WBC 8.4 (3.8-10.6) k/uL RBC 4.45 (3.80-5.40) m/uL Hgb 14.1 (11.4-16.0) gm/dL Hct 40.2 (34.0-46.0) % MCV 90.3 (80.0-100.0) fL MCH 31.7 (25.0-35.0) pg MCHC 35.1 (31.0-37.0) g/dL RDW 13.4 (11.5-15.5) % Plt Count 244 (150-450) k/uL MPV 7.9 Neutrophils % 56 % Lymphocytes % 36 % Monocytes % 4 % Eosinophils % 1 % Basophils % 1 % Neutrophils # 4.7 (1.3-7.7) k/uL Lymphocytes # 3.0 (1.0-4.8) k/uL Monocytes # 0.4 (0-1.0) k/uL Eosinophils # 0.1 (0-0.7) k/uL Basophils # 0.0 (0-0.2) k/uL Sodium (137-145) mmol/L Potassium (3.5-5.1) mmol/L Chloride (98-107) mmol/L Carbon Dioxide (22-30) mmol/L Anion Gap mmol/L BUN (7-17) mg/dL Creatinine (0.52-1.04) mg/dL Est GFR (CKD-EPI)AfAm (>60 ml/min/1.73 sqM) Est GFR (CKD-EPI)NonAf (>60 ml/min/1.73 sqM) Glucose (74-99) mg/dL Calcium (8.4-10.2) mg/dL Total Bilirubin (0.2-1.3) mg/dL AST (14-36) U/L ALT (4-34) U/L Alkaline Phosphatase (38-126) U/L Total Protein (6.3-8.2) g/dL Albumin (3.5-5.0) g/dL Lipase (23-300) U/L Urine Color Yellow Urine Appearance Cloudy H (Clear) Urine pH 7.0 (5.0-8.0) Ur Specific [place] 1.020 (1.001-1.035) Urine Protein Trace H (Negative) Urine Glucose (UA) Negative (Negative) Urine Ketones Negative (Negative) Urine Blood Negative (Negative) Urine Nitrite Negative (Negative) Urine Bilirubin Negative (Negative) Urine Urobilinogen 3.0 (<2.0) mg/dL Ur Leukocyte Esterase Negative (Negative) Urine RBC <1 (0-5) /hpf Urine WBC <1 (0-5) /hpf Ur Squamous Epith Cells 15 H (0-4) /hpf Urine Bacteria Rare H (None) /hpf Urine Mucus Rare H (None) /hpf Urine HCG, Qual Not Detected (Not Detectd) 05/17/22 Range/Units 02:02 WBC (3.8-10.6) k/uL RBC (3.80-5.40) m/uL Hgb (11.4-16.0) gm/dL Hct (34.0-46.0) % MCV (80.0-100.0) fL MCH (25.0-35.0) pg MCHC (31.0-37.0) g/dL RDW (11.5-15.5) % Plt Count (150-450) k/uL MPV Neutrophils % % Lymphocytes % % Monocytes % % Eosinophils % % Basophils % % Neutrophils # (1.3-7.7) k/uL Lymphocytes # (1.0-4.8) k/uL Monocytes # (0-1.0) k/uL Eosinophils # (0-0.7) k/uL Basophils # (0-0.2) k/uL Sodium 143 (137-145) mmol/L Potassium 4.0 (3.5-5.1) mmol/L Chloride 111 H (98-107) mmol/L Carbon Dioxide 23 (22-30) mmol/L Anion Gap 9 mmol/L BUN 9 (7-17) mg/dL Creatinine 0.81 (0.52-1.04) mg/dL Est GFR (CKD-EPI)AfAm >90 (>60 ml/min/1.73 sqM) Est GFR (CKD-EPI)NonAf >90 (>60 ml/min/1.73 sqM) Glucose 96 (74-99) mg/dL Calcium 9.2 (8.4-10.2) mg/dL Total Bilirubin 0.3 (0.2-1.3) mg/dL AST 22 (14-36) U/L ALT 16 (4-34) U/L Alkaline Phosphatase 82 (38-126) U/L Total Protein 6.9 (6.3-8.2) g/dL Albumin 4.3 (3.5-5.0) g/dL Lipase 252 (23-300) U/L Urine Color Urine Appearance (Clear) Urine pH (5.0-8.0) Ur Specific [place] (1.001-1.035) Urine Protein (Negative) Urine Glucose (UA) (Negative) Urine Ketones (Negative) Urine Blood (Negative) Urine Nitrite (Negative) Urine Bilirubin (Negative) Urine Urobilinogen (<2.0) mg/dL Ur Leukocyte Esterase (Negative) Urine RBC (0-5) /hpf Urine WBC (0-5) /hpf Ur Squamous Epith Cells (0-4) /hpf Urine Bacteria (None) /hpf Urine Mucus (None) /hpf Urine HCG, Qual (Not Detectd) - Radiology Data Radiology results: report reviewed, image reviewed Interpreted by me: CT of the abdomen and pelvis shows no acute abnormality. CT of the abdomen and pelvis without contrast was obtained. Report was reviewed in its entirety. Impression per Dr. Ortiz is no evidence of renal stone or obstruction. Normal appendix. No adverse change compared to the old exam. Disposition Clinical Impression: Abdominal pain Disposition: HOME SELF-CARE Condition: Stable Instructions (If sedation given, give patient instructions): Abdominal Pain (ED) Additional Instructions: Consider dietary modifications such as avoiding nuts, seeds, and popcorn. No greasy, spicy, or fatty foods. Increase fluids. BRAT diet (bananas, rice, applesauce, and toast). Take Zofran if needed for nausea. Follow-up with PCP for a recheck next week as needed. Tentative emergency department with any new, worsening or concerning symptoms. Prescriptions: Ondansetron Odt [Zofran Odt] 4 mg PO Q8HR PRN #10 tab PRN Reason: Nausea Is patient prescribed a controlled substance at d/c from ED?: No Referrals: Kane Murrell MD [Primary Care Provider] - 1-2 days Time of Disposition: 03:25
[2022-05-17 02:30] LABS: Basophils % (A) 1 %; Eosinophils # (A) 0.1 k/uL (0-0.7); Eosinophils % (A) 1 %; HCT 40.2 % (34.0-46.0); HGB 14.1 gm/dL (11.4-16.0); Lymphocytes % (A) 36 %; MCH 31.7 pg (25.0-35.0); MCHC 35.1 g/dL (31.0-37.0); MCV 90.3 fL (80.0-100.0); Mean Platelet Volume 7.9; Monocytes # (A) 0.4 k/uL (0-1.0); Monocytes % (A) 4 %; Neutrophils # (A) 4.7 k/uL (1.3-7.7); Neutrophils % (A) 56 %; Platelet Count 244 k/uL (150-450); RBC 4.45 m/uL (3.80-5.40); RDW 13.4 % (11.5-15.5); WBC 8.4 k/uL (3.8-10.6)
[2022-05-17 02:48] LABS: ALT 16 U/L (4-34); AST 22 U/L (14-36); African American GFR (CKD) >90 (>60 ml/min/1.73 sqM); Albumin 4.3 g/dL (3.5-5.0); Alkaline Phosphatase 82 U/L (38-126); Anion Gap 9 mmol/L; Blood Urea Nitrogen 9 mg/dL (7-17); Calcium 9.2 mg/dL (8.4-10.2); Carbon Dioxide 23 mmol/L (22-30); Chloride 111 mmol/L (98-107); Glucose 96 mg/dL (74-99); Lipase 252 U/L (23-300); Non-African American GFR(CKD) >90 (>60 ml/min/1.73 sqM); Sodium 143 mmol/L (137-145); Total Bilirubin 0.3 mg/dL (0.2-1.3); Total Protein 6.9 g/dL (6.3-8.2)
--- NOTE | 2022-05-17 02:52 | CT ---
EXAMINATION TYPE: CT abdomen pelvis wo con DATE OF EXAM: 05/17/2022 COMPARISON: 04/01/2022 HISTORY: RLQ pain CT DLP: 600.3 mGycm Automated exposure control for dose reduction was used. Images obtained from the diaphragm to the floor of the pelvis with no contrast. The lung bases are clear. No pleural effusion. Heart size is normal. No pericardial effusion. Liver spleen and stomach pancreas gallbladder appear intact. The bowel is nondilated. There is no adrenal mass. Kidneys have normal size. No hydronephrosis. Ureters are not dilated. No re troperitoneal adenopathy. Appendix is posterior and appears normal. No mesenteric edema. No ascites or free air. No sign of a bowel obstruction. Urinary bladder distends smoothly. No inguinal hernia. No pelvic mass. No free fluid in the pelvis. The lumbar vertebra have normal alignment. Disc spaces are normal. No compression fracture. Delayed i mages show normal renal excretion. The bony pelvis is intact. The hip joints are intact IMPRESSION: No evidence of renal stone or obstruction. Normal appendix. No adverse change compared to the old [facility] [facility]
[2022-05-17 03:04] LABS: Appearance,Urine Cloudy (Clear); Bacteria,Urine Rare /hpf; Bilirubin,Urine Negative (Negative); Blood,Urine Negative (Negative); Color,Urine Yellow; Glucose,Urine (UA) Negative (Negative); Ketones,Urine Negative (Negative); Leukocyte Esterase,Urine Negative (Negative); Mucus,Urine Rare /hpf; Nitrite,Urine Negative (Negative); Protein,Urine Trace (Negative); RBC,Urine <1 /hpf (0-5); Squamous Epithelial Cell,Urine 15 /hpf (0-4); WBC,Urine <1 /hpf (0-5)
[2022-05-17 03:34] VITALS: BP 115/74; PULSE 72; TEMP 98.4
== END 2022-05-17 03:37 | disposition home or self-care (01) ==
LOC: EC 01:17
DX: R10.31 Right lower quadrant pain (principal); I10 Essential (primary) hypertension; F41.9 Anxiety disorder, unspecified; F32.A Depression, unspecified; F12.90 Cannabis use, unspecified, uncomplicated; Z88.0 Allergy status to penicillin; Z88.2 Allergy status to sulfonamides; Z88.1 Allergy status to other antibiotic agents; Z88.8 Allergy status to other drugs, medicaments and biological substances; Z79.899 Other long term (current) drug therapy
CPT/HCPCS: 36415; 80053; 83690; 85025; 81001; 81025; 74176; 99284; 96374; 96375; J2270; J2405

== ENCOUNTER 2022-05-29 15:07 | Emergency (ER) | payer BC, OTHER ==
[2022-05-29] MEDS ORDERED: DIPH,PERTUS(ACELL)TETVAC-LF 0.5 ML VIAL IM ONE (15:17)
[2022-05-29] MEDS ORDERED: TOPICAL SKIN ADHESIVE 1 EACH AMP TOPICAL ONE (16:05)
--- NOTE | 2022-05-29 17:07 | ED ---
Skin/Abscess/FB HPI - General Chief complaint: Skin/Abscess/Foreign Body Stated complaint: L hand lac Time Seen by Provider: 05/29/22 15:36 Source: patient Mode of arrival: ambulatory Limitations: no limitations - History of Present Illness Initial comments: Patient is 26 year-old female who presents to the emergency department with a chief complaint of left hand laceration. Patient was using scissors when she accidentally cut her left hand just before her thumb. Patient reports minimal pain. Last tetanus unknown. - Related Data Home Medications Medication Instructions Recorded Confirmed Acetaminophen Tab [Tylenol Tab] 1,000 mg PO Q6HR PRN 07/11/18 01/23/22 Topiramate [Topamax] 100 mg PO BID 07/11/18 01/23/22 Brexpiprazole [Rexulti] 0.5 mg PO DAILY 12/20/21 01/23/22 Venlafaxine HCl [Effexor] 100 mg PO DAILY 12/20/21 01/23/22 Previous Rx's Medication Instructions Recorded Ibuprofen [Motrin] 600 mg PO Q8HR PRN #20 tab 10/18/19 Acetaminophen-Codeine 300-30mg 1 tab PO Q4H PRN #18 tablet 04/01/22 [Tylenol #3] Magnesium Hydroxide [Milk of 400 mg PO ONCE #800 ml 04/01/22 Magnesia] Ondansetron Odt [Zofran Odt] 4 mg PO Q8HR PRN #15 tab 04/01/22 Ondansetron Odt [Zofran Odt] 4 mg PO Q8HR PRN #10 tab 05/17/22 Ibuprofen [Motrin] 800 mg PO Q8HR PRN #30 tab 05/29/22 Allergies Allergy/AdvReac Type Severity Reaction Status Date / Time amoxicillin Allergy Anaphylaxis Verified 05/17/22 01:29 cefaclor [From Ceclor] Allergy Anaphylaxis Verified 05/17/22 01:29 ciprofloxacin [From Cipro] Allergy Anaphylaxis Verified 05/17/22 01:29 ciprofloxacin HCl Allergy Anaphylaxis Verified 05/17/22 01:29 [From Cipro] levofloxacin [From Levaquin] Allergy Dyspnea Verified 05/17/22 01:29 Penicillins Allergy Anaphylaxis Verified 05/17/22 01:29 sulfamethoxazole Allergy Dyspnea Verified 05/17/22 01:29 [From Bactrim] and rash trimethoprim [From Bactrim] Allergy Dyspnea Verified 05/17/22 01:29 and rash Review of Systems ROS Statement: Those systems with pertinent positive or pertinent negative responses have been documented in the HPI. ROS Other: All systems not noted in ROS Statement are negative. 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, gestational diabetes first , pelvic congestion syndrome, meniere's History of Any Multi-Drug Resistant Organisms: None Reported Past Surgical History: Section, Ear Surgery, Hysterectomy, Tonsillectomy Additional Past Surgical History / Comment(s): ablation, tubal Past Anesthesia/Blood Transfusion Reactions: Motion Sickness Past Psychological History: Anxiety, Depression Smoking Status: Never smoker Past Alcohol Use History: None Reported Past Drug Use History: Marijuana - Past Family History Mother Family Medical History: No Reported History General Exam Limitations: no limitations General appearance: alert, in no apparent distress Head exam: Present: atraumatic, normocephalic, normal inspection Eye exam: Present: normal appearance, PERRL, EOMI. Absent: scleral icterus, conjunctival injection, periorbital swelling Respiratory exam: Present: normal lung sounds bilaterally. Absent: respiratory distress, wheezes, rales, rhonchi, stridor Cardiovascular Exam: Present: regular rate, normal rhythm, normal heart sounds. Absent: systolic murmur, diastolic murmur, rubs, gallop, clicks Extremities exam: Present: other (1 cm nonbleeding laceration just proximal to left thumb, neurovascularly intact, full ROM) Neurological exam: Present: alert, oriented X3, CN II-XII intact Psychiatric exam: Present: normal affect, normal mood Skin exam: Present: warm, dry, intact, normal color. Absent: rash Course Vital Signs 05/29/22 05/29/22 15:14 17:12 Temperature 98 F 97.8 F Pulse Rate 74 79 Respiratory 16 18 Rate Blood Pressure 117/65 O2 Sat by Pulse 97 98 Oximetry Procedures - Laceration Laceration #1 Indication: laceration Site: other (left hand) Size (cm): 1 Description: irregular Depth: simple, single layer Pre-repair: wound explored, irrigated extensively Patient Tolerated Procedure: well, no complications Additional Comments: Well approximated with Exofin. Medical Decision Making - Medical Decision Making Was pt. sent in by a medical professional or institution? No Did you speak to anyone other than the patient for history? No Did you review nursing and triage notes? Yes, and I agree. Symptoms consistent with nursing and triage notes. Were old charts reviewed? No. Differential Diagnosis? laceration EKG interpreted by me (3pts min.)? NA X-rays interpreted by me (1pt min.)? NA CT interpreted by me (1pt min.)? NA U/S interpreted by me (1pt. min.)? NA What testing was considered but not performed? (CT, X-rays, U/S, labs)? Why? None What meds were considered but not given? Why? None Did you discuss the management of the patient with other professionals? No Did you reconcile home meds? No, patient discharged. Was smoking cessation discussed for >3mins.? No Was critical care preformed (if so, how long)? No Were there social determinants of health that impacted care today? How? (Homelessness, low income, unemployed, alcoholism, drug addiction, transportation, low edu. Level, literacy, decrease access to med. care, fpc, rehab)? No Was there de-escalation of care discussed even if they declined? (Discuss DNR or withdrawal of care, Hospice)? No What co-morbidities impacted this encounter? (DM, HTN, Smoking, COPD, CAD, Cancer, CVA, Hep., AIDS, mental health diagnosis, sleep apnea, morbid obesity)? None Was patient admitted / discharged? This is a 26-year-old female presenting with laceration. Patient very small laceration, approximately 1 cm, just proximal to left thumb. Non-bleeding. It was well approximated with exofin. Tetanus updated. Wound education provided in detail Undiagnosed new problem with uncertain prognosis? No Drug Therapy requiring intensive monitoring for toxicity (Heparin, Nitro, Insulin, Cardizem)? No Were any procedures done? Yes, laceration repair Diagnosis/symptom? Laceration Acute, or Chronic, or Acute on Chronic? NA Uncomplicated (without systemic symptoms) or Complicated (systemic symptoms)? NA Side effects of treatment? No Exacerbation, Progression, or Severe Exacerbation] NA Poses a threat to life or bodily function? No Dr. Dodge is my attending. Disposition Clinical Impression: Laceration Disposition: HOME SELF-CARE Condition: Good Instructions (If sedation given, give patient instructions): Care For Your Stitches (ED), Skin Adhesive Care (ED) Additional Instructions: Leave wound uncovered. Keep wound clean and dry. Wash with a mild soap. Take Tylenol or anti-inflammatories such as Motrin for pain. Follow-up with primary care provider in 1-2 days. Report back to the emergency department if you experience new, concerning, or worsening symptoms. Prescriptions: Ibuprofen [Motrin] 800 mg PO Q8HR PRN #30 tab PRN Reason: Pain Is patient prescribed a controlled substance at d/c from ED?: No Referrals: Kane Murrell MD [Primary Care Provider] - 1-2 days
[2022-05-29 17:13] VITALS: BP 117/65; PULSE 79; RESP 18; TEMP 97.8
== END 2022-05-29 17:13 | disposition home or self-care (01) ==
LOC: EC 15:07
DX: S61.412A Laceration without foreign body of left hand, initial encounter (principal); I10 Essential (primary) hypertension; F41.9 Anxiety disorder, unspecified; F32.A Depression, unspecified; F12.90 Cannabis use, unspecified, uncomplicated; Z88.0 Allergy status to penicillin; Z88.1 Allergy status to other antibiotic agents; Z88.2 Allergy status to sulfonamides; Z88.8 Allergy status to other drugs, medicaments and biological substances; Z23 Encounter for immunization; W26.9XXA Contact with unspecified sharp object(s), initial encounter
CPT/HCPCS: 12001; 90471; 90715; 99282

== ENCOUNTER 2022-08-07 01:10 | Emergency (ER) | payer BC, OTHER ==
[2022-08-07 01:20] VITALS: TEMP 98.3
[2022-08-07] MEDS ORDERED: KETOROLAC 15 MG/ML 1 ML VIAL IM STA (01:48)
[2022-08-07] MEDS ORDERED: ACET/COD 300 MG/30 MG STARTER PACK 6 TAB BTL PO STA (03:06)
--- NOTE | 2022-08-07 03:10 | ED ---
Lower Extremity Injury HPI - General Chief Complaint: Extremity Injury, Lower Stated Complaint: Left Knee Injury Time Seen by Provider: 08/07/22 01:40 Source: patient Mode of arrival: ambulatory Limitations: no limitations - History of Present Illness Initial Comments: 27 year old female presents to the emergency department reporting left knee pain. She reports that she previously had injury to the left knee. She is seeing Dr. Pool. Had an MRI of the knee earlier today. She went home and states that she tripped over her dog and fell once again on her left knee. She landed on the medial aspect. She has been able to ambulate on it however it has been painful. She took Tylenol at home without any improvement in her symptoms. Denies any numbness or tingling into her foot. No hip or ankle pain. No other alleviating, precipitating or modifying factors - Related Data Home Medications Medication Instructions Recorded Confirmed Acetaminophen Tab [Tylenol Tab] 1,000 mg PO Q6HR PRN 07/11/18 01/23/22 Topiramate [Topamax] 100 mg PO BID 07/11/18 01/23/22 Brexpiprazole [Rexulti] 0.5 mg PO DAILY 12/20/21 01/23/22 Venlafaxine HCl [Effexor] 100 mg PO DAILY 12/20/21 01/23/22 Previous Rx's Medication Instructions Recorded Ibuprofen [Motrin] 600 mg PO Q8HR PRN #20 tab 10/18/19 Acetaminophen-Codeine 300-30mg 1 tab PO Q4H PRN #18 tablet 04/01/22 [Tylenol #3] Magnesium Hydroxide [Milk of 400 mg PO ONCE #800 ml 04/01/22 Magnesia] Ondansetron Odt [Zofran Odt] 4 mg PO Q8HR PRN #15 tab 04/01/22 Ondansetron Odt [Zofran Odt] 4 mg PO Q8HR PRN #10 tab 05/17/22 Ibuprofen [Motrin] 800 mg PO Q8HR PRN #30 tab 05/29/22 Allergies Allergy/AdvReac Type Severity Reaction Status Date / Time amoxicillin Allergy Anaphylaxis Verified 08/07/22 01:20 cefaclor [From Ceclor] Allergy Anaphylaxis Verified 08/07/22 01:20 ciprofloxacin [From Cipro] Allergy Anaphylaxis Verified 08/07/22 01:20 ciprofloxacin HCl Allergy Anaphylaxis Verified 08/07/22 01:20 [From Cipro] levofloxacin [From Levaquin] Allergy Dyspnea Verified 08/07/22 01:20 Penicillins Allergy Anaphylaxis Verified 08/07/22 01:20 sulfamethoxazole Allergy Dyspnea Verified 08/07/22 01:20 [From Bactrim] and rash trimethoprim [From Bactrim] Allergy Dyspnea Verified 08/07/22 01:20 and rash Review of Systems ROS Statement: Those systems with pertinent positive or pertinent negative responses have been documented in the HPI. ROS Other: All systems not noted in ROS Statement are negative. 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, gestational diabetes first , pelvic congestion syndrome, meniere's History of Any Multi-Drug Resistant Organisms: None Reported Past Surgical History: Section, Ear Surgery, Hysterectomy, Tonsillectomy Additional Past Surgical History / Comment(s): ablation, tubal Past Anesthesia/Blood Transfusion Reactions: Motion Sickness Past Psychological History: Anxiety, Depression Smoking Status: Never smoker Past Alcohol Use History: None Reported Past Drug Use History: Marijuana - Past Family History Mother Family Medical History: No Reported History General Exam Limitations: no limitations General appearance: alert Extremities exam: Present: full ROM, tenderness (to palpation of the right knee joint. No swelling, ecchymosis, redness. No abrasions. 2+ DP and PT pulses), normal capillary refill. Absent: pedal edema, joint swelling, calf tenderness Course Vital Signs 08/07/22 08/07/22 01:16 03:25 Temperature 98.3 F Pulse Rate 83 76 Respiratory 28 H 18 Rate Blood Pressure 141/98 147/97 O2 Sat by Pulse 100 97 Oximetry Medical Decision Making - Medical Decision Making Was pt. sent in by a medical professional or institution (, PA, POWDER LINE REPAIRER, urgent care, hospital, or snf...) When possible be specific @ -No Did you speak to anyone other than the patient for history (EMS, parent, family, police, friend...)? What history was obtained from this source @ -No Did you review nursing and triage notes (agree or disagree)? Why? @ -I reviewed and agree with nursing and triage notes Were old charts reviewed (outside hosp., previous admission, EMS record, old EKG, old radiological studies, urgent care reports/EKG's, snf records)? Report findings @ -MRI from today reviewed Differential Diagnosis (chest pain, altered mental status, abdominal pain women, abdominal pain men, vaginal bleeding, weakness, fever, dyspnea, syncope, headache, dizziness, GI bleed, back pain, seizure, CVA, palpatations, mental health, musculoskeletal)? @ strain, sprain, joint infection, internal derrangement EKG interpreted by me (3pts min.). @ Not done X-rays interpreted by me (1pt min.). @ yes CT interpreted by me (1pt min.). @ -None done U/S interpreted by me (1pt. min.). @ -None done What testing was considered but not performed or refused? (CT, X-rays, U/S, labs)? Why? @ -None What meds were considered but not given or refused? Why? @ None Did you discuss the management of the patient with other professionals (professionals i.e. , PA, POWDER LINE REPAIRER, lab, RT, psych nurse, medical social consultant, warp hanger, teacher, chief commercial officer, continuous pillowcase cutter)? Give summary @ -No Was smoking cessation discussed for >3mins.? @ -No Was critical care preformed (if so, how long)? @ -No Were there social determinants of health that impacted care today? How? (Homelessness, low income, unemployed, alcoholism, drug addiction, transportation, low edu. Level, literacy, decrease access to med. care, half-way, rehab)? @ -No Was there de-escalation of care discussed even if they declined (Discuss DNR or withdrawal of care, Hospice)? DNR status @ -No What co-morbidities impacted this encounter? (DM, HTN, Smoking, COPD, CAD, Cancer, CVA, ARF, Chemo, Hep., AIDS, mental health diagnosis, sleep apnea, morbid obesity)? @ -None Was patient admitted / discharged? Hospital course, mention meds given and route, prescriptions, significant lab abnormalities, going to OR and other pertinent info. @ -Upon arrival patient was placed into room 27. History and physical exam was performed. She was given a dose of Toradol for pain control. Patient sent for x-ray of her left knee. X-rays interpreted by myself as negative for any acute fracture. She will be discharged home at this time and is instructed to follow- up with her orthopedic surgeon. Return for any new or worsening symptoms. Patient was discharged home in stable condition Undiagnosed new problem with uncertain prognosis? @ -Yes Drug Therapy requiring intensive monitoring for toxicity (Heparin, Nitro, Insulin, Cardizem)? @ -No Were any procedures done? @ -No Diagnosis/symptom? @ -acute/chronic right knee pain Acute, or Chronic, or Acute on Chronic? @ -acute on chronic Uncomplicated (without systemic symptoms) or Complicated (systemic symptoms)? @ -uncomplicated Side effects of treatment? @ -Allergic reaction Exacerbation, Progression, or Severe Exacerbation? @ -No Poses a threat to life or bodily function? How? (Chest pain, [place], [place], pneumonia, PE, COPD, DKA, ARF, appy, cholecystitis, CVA, Diverticulitis, Homicidal, Suicidal, threat to staff... and all critical care pts) @ -No Disposition Clinical Impression: Left knee pain, Fall Disposition: HOME SELF-CARE Condition: Stable Instructions (If sedation given, give patient instructions): Knee Sprain (ED) Additional Instructions: Please rest, ice and elevate the leg. Take the pain medications as directed. Follow-up with your orthopedic doctor and return for any new or worsening symptoms Is patient prescribed a controlled substance at d/c from ED?: No Referrals: Kane Murrell MD [Primary Care Provider] - 1-2 days Anthony Houser MD [STAFF PHYSICIAN] - 1-2 days Time of Disposition: 03:10
[2022-08-07 03:25] VITALS: BP 147/97; PULSE 76; RESP 18
--- NOTE | 2022-08-07 04:05 | XR ---
EXAM: XR Left Knee, 3 Views CLINICAL HISTORY: ITS.REASON XR Reason: pain after fall today TECHNIQUE: Three views of the left knee. COMPARISON: No relevant prior studies available. FINDINGS: Bones/joints: Unremarkable. No acute fracture. No dislocation. Soft tissues: Unremarkable. IMPRESSION: No evidence of acutely displaced fracture or dislocation within the left knee.
== END 2022-08-07 03:25 | disposition home or self-care (01) ==
LOC: EC 01:10
DX: M25.562 Pain in left knee (principal); I10 Essential (primary) hypertension; F32.A Depression, unspecified; F41.9 Anxiety disorder, unspecified; Z88.0 Allergy status to penicillin; Z88.1 Allergy status to other antibiotic agents; Z88.2 Allergy status to sulfonamides; Z88.8 Allergy status to other drugs, medicaments and biological substances; W01.0XXA Fall on same level from slipping, tripping and stumbling without subsequent striking against object, initial encounter
CPT/HCPCS: 73562; 99283; 96372; J1885

== ENCOUNTER 2022-08-19 16:39 | Emergency (ER) | payer BC, OTHER ==
--- NOTE | 2022-08-19 16:48 | ED ---
General Adult HPI - General Stated complaint: foreign object in ear Time Seen by Provider: 08/19/22 16:47 Source: RN notes reviewed - History of Present Illness Initial comments: 27-year-old female with no significant past medical history presents to the emergency department with a chief complaint of foreign body in left ear. Patient reports that she was changing her earrings 1 she felt a small "ball" get lodged in her left ear canal. She denies any pain, nausea, vomiting, dizziness, lightheadedness. She denies using any Q-tips to remove the foreign body. - Related Data Home Medications Medication Instructions Recorded Confirmed Acetaminophen Tab [Tylenol Tab] 1,000 mg PO Q6HR PRN 07/11/18 01/23/22 Topiramate [Topamax] 100 mg PO BID 07/11/18 01/23/22 Brexpiprazole [Rexulti] 0.5 mg PO DAILY 12/20/21 01/23/22 Venlafaxine HCl [Effexor] 100 mg PO DAILY 12/20/21 01/23/22 Previous Rx's Medication Instructions Recorded Ibuprofen [Motrin] 600 mg PO Q8HR PRN #20 tab 10/18/19 Acetaminophen-Codeine 300-30mg 1 tab PO Q4H PRN #18 tablet 04/01/22 [Tylenol #3] Magnesium Hydroxide [Milk of 400 mg PO ONCE #800 ml 04/01/22 Magnesia] Ondansetron Odt [Zofran Odt] 4 mg PO Q8HR PRN #15 tab 04/01/22 Ondansetron Odt [Zofran Odt] 4 mg PO Q8HR PRN #10 tab 05/17/22 Ibuprofen [Motrin] 800 mg PO Q8HR PRN #30 tab 05/29/22 Acetic Acid/Hydrocortisone [Vosol 5 drops BOTH EARS Q4H #10 ml 08/19/22 Hc Otic] Allergies Allergy/AdvReac Type Severity Reaction Status Date / Time amoxicillin Allergy Anaphylaxis Verified 08/07/22 01:20 cefaclor [From Ceclor] Allergy Anaphylaxis Verified 08/07/22 01:20 ciprofloxacin [From Cipro] Allergy Anaphylaxis Verified 08/07/22 01:20 ciprofloxacin HCl Allergy Anaphylaxis Verified 08/07/22 01:20 [From Cipro] levofloxacin [From Levaquin] Allergy Dyspnea Verified 08/07/22 01:20 Penicillins Allergy Anaphylaxis Verified 08/07/22 01:20 sulfamethoxazole Allergy Dyspnea Verified 08/07/22 01:20 [From Bactrim] and rash trimethoprim [From Bactrim] Allergy Dyspnea Verified 08/07/22 01:20 and rash Review of Systems ROS Statement: Those systems with pertinent positive or pertinent negative responses have been documented in the HPI. ROS Other: All systems not noted in ROS Statement are negative. 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, gestational diabetes first , pelvic congestion syndrome, meniere's History of Any Multi-Drug Resistant Organisms: None Reported Past Surgical History: Section, Ear Surgery, Hysterectomy, Tonsillectomy Additional Past Surgical History / Comment(s): ablation, tubal Past Anesthesia/Blood Transfusion Reactions: Motion Sickness Past Psychological History: Anxiety, Depression Smoking Status: Never smoker Past Alcohol Use History: None Reported Past Drug Use History: Marijuana - Past Family History Mother Family Medical History: No Reported History General Exam - General Exam Comments Initial Comments: Visual Physical Exam Vital signs reviewed General: Well-appearing, nontoxic, no acute distress. Head: Normocephalic, atraumatic Eyes: PERRLA, EOMI ENT: Airway patent Chest: Nonlabored breathing Skin: No visual rash, normal skin tone Neuro: Alert and oriented 3 Musculoskeletal: No gross abnormalities General appearance: alert, in no apparent distress Head exam: Present: atraumatic, normocephalic, normal inspection Eye exam: Present: normal appearance, PERRL, EOMI. Absent: scleral icterus, conjunctival injection, periorbital swelling ENT exam: Present: normal exam, mucous membranes moist, TM's normal bilaterally, other (small foreign body noted ) Neck exam: Present: normal inspection. Absent: tenderness, meningismus, lymphadenopathy Respiratory exam: Present: normal lung sounds bilaterally. Absent: respiratory distress, wheezes, rales, rhonchi, stridor Cardiovascular Exam: Present: regular rate, normal rhythm, normal heart sounds. Absent: systolic murmur, diastolic murmur, rubs, gallop, clicks GI/Abdominal exam: Present: soft, normal bowel sounds. Absent: distended, tenderness, guarding, rebound, rigid Extremities exam: Present: normal inspection, full ROM, normal capillary refill. Absent: tenderness, pedal edema, joint swelling, calf tenderness Back exam: Present: normal inspection Neurological exam: Present: alert, oriented X3, CN II-XII intact Psychiatric exam: Present: normal affect, normal mood Skin exam: Present: warm, dry, intact, normal color. Absent: rash Course Vital Signs 08/19/22 08/19/22 16:47 17:48 Temperature 97.9 F 97.9 F Pulse Rate 79 67 Respiratory 16 14 Rate Blood Pressure 117/81 O2 Sat by Pulse 99 100 Oximetry - Reevaluation(s) Reevaluation #1: 08/19/22 23:30 had a irrigated with normal saline upon initial exam there is no longer any foreign body in the ear canal. TMs remain intact. Medical Decision Making - Medical Decision Making Was pt. sent in by a medical professional or institution ([facility], WELDER EXPLOSION, urgent care, hospital, or prison...) When possible be specific @ -[No] Did you speak to anyone other than the patient for history (EMS, parent, family, police, friend...)? What history was obtained from this source @ -[No] Did you review nursing and triage notes (agree or disagree)? Why? @ -[I reviewed and agree with nursing and triage notes] Were old charts reviewed (outside hosp., previous admission, EMS record, old EKG, old radiological studies, urgent care reports/EKG's, prison records)? Report findings @ -[No old charts were reviewed] Differential Diagnosis (chest pain, altered mental status, abdominal pain women, abdominal pain men, vaginal bleeding, weakness, fever, dyspnea, syncope, headache, dizziness, GI bleed, back pain, seizure, CVA, palpatations, mental health, musculoskeletal)? @ -[not applicable] EKG interpreted by me (3pts min.). @ -[As above] X-rays interpreted by me (1pt min.). @ -[None done] CT interpreted by me (1pt min.). @ -[None done] U/S interpreted by me (1pt. min.). @ -[None done] What testing was considered but not performed or refused? (CT, X-rays, U/S, labs)? Why? @ -[None] What meds were considered but not given or refused? Why? @ -[None] Did you discuss the management of the patient with other professionals (professionals i.e. , PA, WELDER EXPLOSION, lab, RT, psych nurse, social sciences chair, photoresist printer, teacher, business practices officer, upper caser)? Give summary @ -[No] Was smoking cessation discussed for >3mins.? @ -[No] Was critical care preformed (if so, how long)? @ -[No] Were there social determinants of health that impacted care today? How? (Homelessness, low income, unemployed, alcoholism, drug addiction, transportation, low edu. Level, literacy, decrease access to med. care, custodial, rehab)? @ -[No] Was there de-escalation of care discussed even if they declined (Discuss DNR or withdrawal of care, Hospice)? DNR status @ -[No] What co-morbidities impacted this encounter? (DM, HTN, Smoking, COPD, CAD, Cancer, CVA, ARF, Chemo, Hep., AIDS, mental health diagnosis, sleep apnea, morbid obesity)? @ -[None] Was patient admitted / discharged? Hospital course, mention meds given and route, prescriptions, significant lab abnormalities, going to OR and other pertinent info. @ -Discharged. This is a 27-year-old female who presents to the emergency department with a foreign body in left ear. Patient had the foreign body removed with success. She was given Vosol eardrops and was encouraged to follow-up with primary care in 1-2 days if symptoms do not get that her. Patient was discharged in stable condition. Return precautions were discussed. Case discussed with Dr. Mccollum who agrees with plan of care. Undiagnosed new problem with uncertain prognosis? @ -[No] Drug Therapy requiring intensive monitoring for toxicity (Heparin, Nitro, Insulin, Cardizem)? @ -[No] Were any procedures done? @ -[No] Diagnosis/symptom? @ -foreign body in left ear Acute, or Chronic, or Acute on Chronic? @ -acute Uncomplicated (without systemic symptoms) or Complicated (systemic symptoms)? @ -uncomplicated Side effects of treatment? @ -[No] Exacerbation, Progression, or Severe Exacerbation? @ -[No] Poses a threat to life or bodily function? How? (Chest pain, [place], [place], pneumonia, PE, COPD, DKA, ARF, appy, cholecystitis, CVA, Diverticulitis, Homicidal, Suicidal, threat to staff... and all critical care pts) @ -low likelihood Disposition Clinical Impression: Foreign body Disposition: HOME SELF-CARE Condition: Stable Instructions (If sedation given, give patient instructions): Ear Foreign Body (ED) Additional Instructions: He is return to the nearest emergency department if symptoms worsen or persist. Prescriptions: Acetic Acid/Hydrocortisone [Vosol Hc Otic] 5 drops BOTH EARS Q4H #10 ml Is patient prescribed a controlled substance at d/c from ED?: No Referrals: Kane Murrell MD [Primary Care Provider] - 1-2 days Batr Schofield DO [Doctor of Osteopathic Medicine] - 1-2 days Time of Disposition: 17:23
[2022-08-19 16:49] VITALS: BP 117/81; TEMP 97.9
[2022-08-19 17:50] VITALS: PULSE 67; RESP 14
== END 2022-08-19 18:27 | disposition home or self-care (01) ==
LOC: EC 16:39
DX: T16.2XXA Foreign body in left ear, initial encounter (principal); I10 Essential (primary) hypertension; F32.A Depression, unspecified; F41.9 Anxiety disorder, unspecified; F12.90 Cannabis use, unspecified, uncomplicated; Z79.899 Other long term (current) drug therapy; Z88.0 Allergy status to penicillin; Z88.1 Allergy status to other antibiotic agents; Z88.2 Allergy status to sulfonamides; X58.XXXA Exposure to other specified factors, initial encounter
CPT/HCPCS: 99282

== ENCOUNTER → 2022-09-11 | Outpatient (CLI) | payer BC, OTHER ==
[2022-09-11 21:57] LABS: Basophils # (A) 0.04 X 10*3/uL (0.00-0.10); Basophils % (A) 0.4 %; Eosinophils # (A) 0.04 X 10*3/uL (0.04-0.35); Eosinophils % (A) 0.4 %; HCT 44.6 % (37.2-46.3); HGB 14.4 g/dL (12.0-15.0); Immature Grans, Automated 0.2 %; Lymphocytes # (A) 2.48 X 10*3/uL (0.90-5.00); Lymphocytes % (A) 27.4 %; MCH 30.4 pg (27.0-32.0); MCHC 32.3 g/dL (32.0-37.0); MCV 94.3 fL (80.0-97.0); Mean Platelet Volume 10.4 fL (9.5-12.2); Monocytes # (A) 0.53 X 10*3/uL (0.20-1.00); Monocytes % (A) 5.9 %; NRBC Per 100 WBC 0 /100 WBCS (0.0-0.0); Neutrophils # (A) 5.94 X 10*3/uL (1.80-7.70); Neutrophils % (A) 65.7 %; Platelet Count 271 X 10*3/uL (140-440); RBC 4.73 X 10*6/uL (4.10-5.20); RDW 12.6 % (11.5-14.5); WBC 9.05 X 10*3/uL (4.50-10.00)
[2022-09-11 23:26] LABS: Anion Gap 10.7 mmol/L (10.00-18.00); Potassium 4.2 mmol/L (3.5-5.5)
== END | disposition home or self-care (01) ==
LOC: LABPAT 12:08
PROVIDERS: ATTEND Orthopaedic Surgery
DX: Z01.812 Encounter for preprocedural laboratory examination (principal); M23.92 Unspecified internal derangement of left knee
CPT/HCPCS: 36415; 80051; 85025

== ENCOUNTER 2022-09-24 07:51 | Day surgery (SDC) | payer BC, OTHER ==
--- NOTE | 2022-09-23 13:44 | HP ---
HISTORY AND PHYSICAL DATE OF SCHEDULED SURGERY: 09/24/2022. 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 We discussed options for treatment. She elected to proceed with left knee arthroscopy. Consent regarding the procedure was obtained. PAST MEDICAL HISTORY: Depression. PAST SURGICAL HISTORY: Tonsillectomy. DAILY MEDICATIONS: 1. Motrin. 2. Topamax. ALLERGIES: Penicillin, amoxicillin, Ceclor, Cipro. SOCIAL HISTORY: She denies tobacco use. PHYSICAL EVALUATION OF LEFT KNEE: Range of her left knee range of motion is 0-125 degrees. Tenderness along the medial joint line. Positive medial Elizabeth's. Ligaments stable. Hip rotation without pain. Distal neurovascular exam is intact. RADIOGRAPHS: Left knee radiographs revealed no abnormality. MRI left knee revealed medial meniscal tear. IMPRESSION: Internal derangement of left knee with medial meniscal tear. PLAN: Left knee arthroscopy with partial medial meniscectomy and debridement. MMODL / IJN: [id number] /
[~2022-09-24 07:51] MED LIST changes: -DEXAMETHASONE SOD PHOSPHATE 10 MG/ML 1 ML VIAL IV ONE; +DEXAMETHASONE SOD PHOSPHATE 4 MG/ML 1 ML VIAL IV ONE; +HYDROmorphone 0.5 MG/0.5 ML SYRINGE IVP PRN; -IBUPROFEN IV 800 MG in SODIUM CHLORIDE 0.9% 250 ML IV ONE; +LIDOCAINE 1% (10MG/ML) FOR IV START INTRADERMA PRN; -LIDOCAINE 1% 20 ML VIAL (10MG/ML) FOR IV START INTRADERMA PRN; +MIDAZOLAM 2 MG/2 ML VIAL IV PRN; +ONDANSETRON 4 MG/2 ML VIAL IVP ONE; -Pre Op ABX Message 1 EACH MISC MISCELLANE ONE; -SCOPOLAMINE 1.5MG/72HR PATCH TRANSDERM ONE; +fentaNYL (PF) 50 MCG/ML 2 ML AMP IVP PRN
[2022-09-24 09:09] VITALS: RESP 16
[2022-09-24] MEDS ORDERED: BUPIVACAINE (PF) 0.25% 30 ML VIAL SQ ONE ×2 (09:11→09:51)
[2022-09-24] MEDS ORDERED: LIDOCAINE 2% INJ 20 MG/ML (2 ML VIAL) ONE (09:13)
[2022-09-24] MEDS ORDERED: fentaNYL (PF) 50 MCG/ML 2 ML AMP ONE (09:13)
[2022-09-24] MEDS ORDERED: MIDAZOLAM 2 MG/2 ML VIAL ONE (09:13)
[2022-09-24] MEDS ORDERED: PROPOFOL 10 MG/ML 20 ML VIAL IV ONE (09:13)
[2022-09-24] MEDS ORDERED: SODIUM CHLORIDE 0.9% 50 ML with ceFAZolin 1,000 MG IV ONE ×4 (09:19)
[2022-09-24] MEDS ORDERED: LACTATED RINGERS 1,000 ML IV ONE (09:49)
--- NOTE | 2022-09-24 10:05 | P.OP ---
Date of Procedure: 09/24/22 Preoperative Diagnosis: Internal derangement left knee Postoperative Diagnosis: 1. Tear medial and lateral meniscus left knee 2. Reactive synovitis medial, lateral and suprapatellar compartments left knee Procedure(s) Performed: 1. Arthroscopic partial medial and lateral meniscectomy left knee 2. Arthroscopic partial synovectomy medial, lateral and suprapatellar compartments left knee Anesthesia: GETA, local Surgeon: Raman Lopez Estimated Blood Loss (ml): 5 Pathology: none sent Condition: stable Disposition: PACU Indications for Procedure: 27-year-old patient seen with progressive left knee pain. After having treatment options discussed, she elected to proceed with arthroscopy. Operative Findings: see description of procedure Description of Procedure: Patient was taken to the operative suite. Patient underwent a general anesthetic by the department of anesthesia. Patient was given preoperative antibiotics. The left lower extremity was placed in a well-padded arthroscopic leg brown. The left leg was prepped and draped in the normal sterile orthopedic fashion. A lateral parapatellar and suprapatellar incision was made. Trochars were inserted. Arthroscopy was initiated. Suprapatellar pouch re vealed diffuse thick reactive synovitis. The patellofemoral joint appeared to articulate congruently. There was grade 1 chondromalacia of the patella with no osteochondral tears present. The scope was guided into the medial gutter. No loose bodies or plica were identified. The scope was then guided into the medial compartment. A medial parapatellar incision was made. Trocar inserted followed by probe. There was a radial tear posterior horn medial meniscus. There was no significant chondromalacia present. There was some reactive synovitis anteriorly. I performed a partial medial meniscectomy getting down to stable meniscal tissue. I performed a partial synovectomy decompressing the reactive synovitis. The residual meniscus was stable. There was good decompression of the synovitis. Scope and probe were then guided into the intercondylar notch. Cruciates were identified, probed and found to be stable. The scope and probe were then guided into lateral compartment. There was a radial tear posterior horn lateral meniscus. There was no chondromalacia present lateral compartment. There was some thick reactive synovitis anteriorly. I performed a partial lateral meniscectomy getting down to stable meniscal tissue. I performed a partial synovectomy decompressing reactive synovitis. The residual meniscus was stable. There was good decompression of the synovitis. The scope was in guided back into the suprapatellar compartment. I introduced a motorized shaver into the suprapatellar compartment. I performed a partial synovectomy decompressing reactive synovitis. The shaver was removed. There was good decompression of the synovitis. I took one more look around the entire knee, no residual debris. Instruments were now removed from the joint. The joint was infiltrated with .25% Marcaine. Steri-Strips were applied to the portal sites. Sterile dressings were applied. The patient was placed into a HERMAN hose. No tourniquet was utilized. The patient was awakened, transferred to a bed and taken to recovery stable satisfactory condition.
[2022-09-24 10:12] VITALS: TEMP 97
[2022-09-24 11:10] VITALS: BP 122/78; PULSE 85
[2022-09-24] MEDS ORDERED: HYDROcodone/APAP 5-325MG 1 EACH TAB ONE (11:17)
== END 2022-09-24 12:29 | disposition home or self-care (01) ==
LOC: OR 07:51
PROVIDERS: ATTEND Orthopaedic Surgery
DX: S83.242A Other tear of medial meniscus, current injury, left knee, initial encounter (principal); S83.282A Other tear of lateral meniscus, current injury, left knee, initial encounter; M65.862 Other synovitis and tenosynovitis, left lower leg; M22.42 Chondromalacia patellae, left knee; X58.XXXA Exposure to other specified factors, initial encounter; G43.909 Migraine, unspecified, not intractable, without status migrainosus; F90.9 Attention-deficit hyperactivity disorder, unspecified type; F32.A Depression, unspecified; Z79.1 Long term (current) use of non-steroidal anti-inflammatories (NSAID); Z88.0 Allergy status to penicillin; Z88.1 Allergy status to other antibiotic agents; Z88.2 Allergy status to sulfonamides
CPT/HCPCS: 29880; J2250; J1100; J2405; J0690; J3010; J2704; J2001

== ENCOUNTER 2022-10-09 19:23 | Emergency (ER) | payer BC, OTHER ==
[2022-10-09 19:42] VITALS: TEMP 97.8
--- NOTE | 2022-10-09 20:16 | ED ---
General Adult HPI - General Chief complaint: Extremity Injury, Lower Stated complaint: post op, L knee infection Time Seen by Provider: 10/09/22 20:11 Source: patient, RN notes reviewed Mode of arrival: ambulatory Limitations: no limitations - History of Present Illness Initial comments: Patient is a 27-year-old female who presents to the emergency department for possible left knee infection. Patient had arthroscopic partial medial and lateral meniscectomy as well as partial synovectomy of the medial, lateral, suprapatellar compartment of left kneey with Dr. Pena September 24. Patient has had increased pain in the left knee for the past couple days she saw Joshua Blackmon yesterday who had concern for incision infection. Patient did fall on the knee again today due to knee giving out. Patient also reports fever, chills, and a couple episodes of nausea and vomiting. She does history of cellulitis which required PICC line. No history of MRSA. - Related Data Home Medications Medication Instructions Recorded Confirmed Acetaminophen Tab [Tylenol Tab] 1,000 mg PO Q6HR PRN 07/11/18 09/22/22 Topiramate [Topamax] 50 mg PO BID 07/11/18 09/22/22 Venlafaxine HCl [Effexor] 100 mg PO BID 12/20/21 09/22/22 Cariprazine HCl [Vraylar] 1.5 mg PO DAILY 09/24/22 09/24/22 Dextroamphetamine/Amphetamine 20 mg PO DAILY 09/24/22 09/24/22 [Adderall] Previous Rx's Medication Instructions Recorded Ondansetron Odt [Zofran Odt] 4 mg PO Q8HR PRN #15 tab 04/01/22 Ibuprofen [Motrin] 800 mg PO Q8HR PRN #30 tab 05/29/22 HYDROcodone/APAP 5-325MG [[place] 1 tab PO Q6HR PRN #12 tab 09/24/22 5-325] Clindamycin [Cleocin] 450 mg PO Q8H #63 capsule 10/09/22 Allergies Allergy/AdvReac Type Severity Reaction Status Date / Time amoxicillin Allergy Anaphylaxis Verified 10/09/22 19:42 cefaclor [From Ceclor] Allergy Anaphylaxis Verified 10/09/22 19:42 ciprofloxacin [From Cipro] Allergy Anaphylaxis Verified 10/09/22 19:42 ciprofloxacin HCl Allergy Anaphylaxis Verified 10/09/22 19:42 [From Cipro] levofloxacin [From Levaquin] Allergy Dyspnea Verified 10/09/22 19:42 Penicillins Allergy Anaphylaxis Verified 10/09/22 19:42 sulfamethoxazole Allergy Dyspnea Verified 10/09/22 19:42 [From Bactrim] and rash trimethoprim [From Bactrim] Allergy Dyspnea Verified 10/09/22 19:42 and rash Review of Systems ROS Statement: Those systems with pertinent positive or pertinent negative responses have been documented in the HPI. ROS Other: All systems not noted in ROS Statement are negative. 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, HTN & gestational diabetes first , pelvic congestion syndrome, meniere's History of Any Multi-Drug Resistant Organisms: None Reported Past Surgical History: Section, Ear Surgery, Hysterectomy, Tonsillectomy, Tubal Ligation, Uterine Ablation Additional Past Surgical History / Comment(s): jaw surgery Past Anesthesia/Blood Transfusion Reactions: Motion Sickness Past Psychological History: Anxiety, Depression Smoking Status: Never smoker - Past Family History Mother Family Medical History: Coronary Artery Disease (CAD) Father Family Medical History: Coronary Artery Disease (CAD) General Exam - General Exam Comments Initial Comments: Visual Physical Exam Vital signs reviewed General: Well-appearing, nontoxic, no acute distress. Head: Normocephalic, atraumatic Eyes: PERRLA, EOMI ENT: Airway patent Chest: Nonlabored breathing Skin: No visual rash, normal skin tone Neuro: Alert and oriented 3 Musculoskeletal: No gross abnormalities Limitations: no limitations General appearance: alert, in no apparent distress Head exam: Present: atraumatic, normocephalic, normal inspection Eye exam: Present: normal appearance, PERRL, EOMI. Absent: scleral icterus, conjunctival injection, periorbital swelling Respiratory exam: Present: normal lung sounds bilaterally. Absent: respiratory distress, wheezes, rales, rhonchi, stridor Cardiovascular Exam: Present: regular rate, normal rhythm, normal heart sounds. Absent: systolic murmur, diastolic murmur, rubs, gallop, clicks Left Upper Leg exam: Present: normal inspection, full ROM. Absent: tenderness, swelling Knee exam: Present: full ROM (no significant pain with ROM), tenderness (over incision). Absent: normal inspection (1 cm incision with 0.5 cm surrouding erythema, swelling, warmth, drainage. No fluid collection or abscess), swelling, abrasion, laceration, ecchymosis, deformity, crepitus, dislocation, effusion Lower Leg exam: Present: normal inspection, full ROM. Absent: tenderness, swelling Neurovascular tendon exam: Present: no vascular compromise Gait: observed and normal Neurological exam: Present: alert, oriented X3, CN II-XII intact Psychiatric exam: Present: normal affect, normal mood Skin exam: Present: warm, dry, intact, normal color. Absent: rash Course Vital Signs 10/09/22 10/09/22 19:35 21:49 Temperature 97.8 F Pulse Rate 91 84 Respiratory 16 18 Rate Blood Pressure 136/98 132/88 O2 Sat by Pulse 100 98 Oximetry Medical Decision Making - Medical Decision Making Was pt. sent in by a medical professional or institution (, PA, HEAD SULFIDE OPERATOR, urgent care, hospital, or shelter...) When possible be specific @ -No Did you speak to anyone other than the patient for history (EMS, parent, family, police, friend...)? What history was obtained from this source @ -No Did you review nursing and triage notes (agree or disagree)? Why? @ -I reviewed and agree with nursing and triage notes Were old charts reviewed (outside hosp., previous admission, EMS record, old EKG, old radiological studies, urgent care reports/EKG's, shelter records)? Report findings @ -No old charts were reviewed Differential Diagnosis (chest pain, altered mental status, abdominal pain women, abdominal pain men, vaginal bleeding, weakness, fever, dyspnea, syncope, headache, dizziness, GI bleed, back pain, seizure, CVA, palpatations, mental health)? @ -Cellulitis, abscess, septic arthritis, fracture. This list is not meant to be all-inclusive EKG interpreted by me (3pts min.). @ -As above X-rays interpreted by me (1pt min.). @ -Yes, left knee x-ray negative for acute process CT interpreted by me (1pt min.). @ -None done U/S interpreted by me (1pt. min.). @ -None done What testing was considered but not performed or refused? (CT, X-rays, U/S, labs)? Why? @ -None What meds were considered but not given or refused? Why? @ -None Did you discuss the management of the patient with other professionals (professionals i.e. , PA, HEAD SULFIDE OPERATOR, lab, RT, psych nurse, social science instructor, in home aide, teacher, patrol community service officer, block and case maker)? Give summary @ -No Was smoking cessation discussed for >3mins.? @ -No Was critical care preformed (if so, how long)? @ -No Were there social determinants of health that impacted care today? How? (Homelessness, low income, unemployed, alcoholism, drug addiction, transportation, low edu. Level, literacy, decrease access to med. care, alf, rehab)? @ -No Was there de-escalation of care discussed even if they declined (Discuss DNR or withdrawal of care, Hospice)? DNR status @ -No What co-morbidities impacted this encounter? (DM, HTN, Smoking, COPD, CAD, Cancer, CVA, ARF, Chemo, Hep., AIDS, mental health diagnosis, sleep apnea, morbid obesity)? @ -None Was patient admitted / discharged? Hospital course, mention meds given and route, prescriptions, significant lab abnormalities, going to OR and other pertinent info. @ -Patient presenting for evaluation of possible postoperative infection. Patient has mild infection of the incision. Attempted to express the incision and could not get any drainage out of it. There is no abscess. Despite report of fever and vomiting patient had normal vital signs while she was here. She denied any further episodes of vomiting. There is no leukocytosis. Patient stable medical condition for discharge with antibiotics. She was given first dose of clindamycin prior to discharge for wound infection. We discussed strict return parameters. Undiagnosed new problem with uncertain prognosis? @ -No Drug Therapy requiring intensive monitoring for toxicity (Heparin, Nitro, Insulin, Cardizem)? @ -No Were any procedures done? @ -[No] Diagnosis/symptom? @ -incision infection Acute, or Chronic, or Acute on Chronic? @ -acute Uncomplicated (without systemic symptoms) or Complicated (systemic symptoms)? @ -uncomplicated Side effects of treatment? @ -[No] Exacerbation, Progression, or Severe Exacerbation? @ -[No] Poses a threat to life or bodily function? How? (Chest pain, [place], [place], pneumonia, PE, COPD, DKA, ARF, appy, cholecystitis, CVA, Diverticulitis, Homicidal, Suicidal, threat to staff... and all critical care pts) @ -No Dr. Pappas is my attending - Lab Data Result diagrams: 10/09/22 21:40 10/09/22 21:40 Lab Results 10/09/22 10/09/22 10/09/22 Range/Units 21:40 21:40 21:40 WBC 9.9 (3.8-10.6) k/uL RBC 4.75 (3.80-5.40) m/uL Hgb 14.5 (11.4-16.0) gm/dL Hct 42.8 (34.0-46.0) % MCV 90.1 (80.0-100.0) fL MCH 30.6 (25.0-35.0) pg MCHC 33.9 (31.0-37.0) g/dL RDW 13.2 (11.5-15.5) % Plt Count 256 (150-450) k/uL MPV 7.8 Neutrophils % 59 % Lymphocytes % 33 % Monocytes % 4 % Eosinophils % 1 % Basophils % 0 % Neutrophils # 5.8 (1.3-7.7) k/uL Lymphocytes # 3.2 (1.0-4.8) k/uL Monocytes # 0.4 (0-1.0) k/uL Eosinophils # 0.1 (0-0.7) k/uL Basophils # 0.0 (0-0.2) k/uL Sodium 141 (137-145) mmol/L Potassium 4.4 (3.5-5.1) mmol/L Chloride 105 (98-107) mmol/L Carbon Dioxide 22 (22-30) mmol/L Anion Gap 14 mmol/L BUN 15 (7-17) mg/dL Creatinine 0.78 (0.52-1.04) mg/dL Est GFR (CKD-EPI)AfAm >90 (>60 ml/min/1.73 sqM) Est GFR (CKD-EPI)NonAf >90 (>60 ml/min/1.73 sqM) Glucose 80 (74-99) mg/dL Plasma Lactic Acid Chris 1.1 (0.7-2.0) mmol/L Calcium 9.6 (8.4-10.2) mg/dL Total Bilirubin 0.4 (0.2-1.3) mg/dL AST 47 H (14-36) U/L ALT 50 H (4-34) U/L Alkaline Phosphatase 108 (38-126) U/L Total Protein 8.2 (6.3-8.2) g/dL Albumin 5.0 (3.5-5.0) g/dL Disposition Clinical Impression: Incisional infection Disposition: HOME SELF-CARE Condition: Good Instructions (If sedation given, give patient instructions): Cellulitis (ED) Additional Instructions: Take antibiotics as directed. This medication may cause diarrhea. Follow-up with nanofabrication specialist and primary care provider in one to 2 days. Return to the emergency room if you experience new, concerning, or worsening symptoms. Prescriptions: Clindamycin [Cleocin] 450 mg PO Q8H #63 capsule Is patient prescribed a controlled substance at d/c from ED?: No Referrals: Kane Murrell MD [Primary Care Provider] - 1-2 days
--- NOTE | 2022-10-09 21:21 | XR ---
PROCEDURE: XR knee complete LT - 3V DATE AND TIME: 10/09/2022 8:27 PM CLINICAL INDICATION: PHH; infection post-op TECHNIQUE: Department protocol COMPARISON: 08/07/2022 FINDINGS: The bones and joints and soft tissues are unremarkable. IMPRESSION: No acute process.
[2022-10-09] MEDS ORDERED: SODIUM CHLORIDE 0.9% 1,000 ML IV STA (21:32)
[2022-10-09] MEDS ORDERED: IBUPROFEN 600 MG TAB PO STA (21:32)
[2022-10-09] MEDS ORDERED: KETOROLAC 15 MG/ML 1 ML VIAL IVP STA (21:43)
[2022-10-09 22:15] LABS: Basophils % (A) 0 %; Eosinophils # (A) 0.1 k/uL (0-0.7); Eosinophils % (A) 1 %; HCT 42.8 % (34.0-46.0); HGB 14.5 gm/dL (11.4-16.0); Lymphocytes # (A) 3.2 k/uL (1.0-4.8); Lymphocytes % (A) 33 %; MCH 30.6 pg (25.0-35.0); MCHC 33.9 g/dL (31.0-37.0); MCV 90.1 fL (80.0-100.0); Mean Platelet Volume 7.8; Monocytes # (A) 0.4 k/uL (0-1.0); Monocytes % (A) 4 %; Neutrophils # (A) 5.8 k/uL (1.3-7.7); Neutrophils % (A) 59 %; Platelet Count 256 k/uL (150-450); RBC 4.75 m/uL (3.80-5.40); RDW 13.2 % (11.5-15.5); WBC 9.9 k/uL (3.8-10.6)
[2022-10-09 22:37] LABS: ALT 50 U/L (4-34); AST 47 U/L (14-36); African American GFR (CKD) >90 (>60 ml/min/1.73 sqM); Alkaline Phosphatase 108 U/L (38-126); Anion Gap 14 mmol/L; Blood Urea Nitrogen 15 mg/dL (7-17); Calcium 9.6 mg/dL (8.4-10.2); Carbon Dioxide 22 mmol/L (22-30); Chloride 105 mmol/L (98-107); Glucose 80 mg/dL (74-99); Non-African American GFR(CKD) >90 (>60 ml/min/1.73 sqM); Potassium 4.4 mmol/L (3.5-5.1); Sodium 141 mmol/L (137-145); Total Bilirubin 0.4 mg/dL (0.2-1.3); Total Protein 8.2 g/dL (6.3-8.2)
[2022-10-09] MEDS ORDERED: CLINDAMYCIN 150 MG CAP PO STA (22:49)
[2022-10-09 23:19] VITALS: BP 120/68; PULSE 68; RESP 16
== END 2022-10-09 23:24 | disposition home or self-care (01) ==
LOC: EC 19:23
DX: T81.41XA Infection following a procedure, superficial incisional surgical site, initial encounter (principal); F41.9 Anxiety disorder, unspecified; F32.A Depression, unspecified; Z79.899 Other long term (current) drug therapy; Z88.0 Allergy status to penicillin; Z88.6 Allergy status to analgesic agent; Z88.2 Allergy status to sulfonamides; Z88.8 Allergy status to other drugs, medicaments and biological substances
CPT/HCPCS: 36415; 80053; 83605; 85025; 87040; 73562; 99284; 96374; 96361; J1885

== ENCOUNTER 2023-02-04 21:48 | Emergency (ER) | payer BC, OTHER ==
--- NOTE | 2023-02-04 23:11 | ED ---
General Adult HPI - General Chief complaint: Extremity Injury, Lower Stated complaint: Left ankle injury, Fall Time Seen by Provider: 02/04/23 22:07 Source: patient, RN notes reviewed Mode of arrival: wheelchair Limitations: no limitations - History of Present Illness Initial comments: 27-year-old female presents emergency department chief complaint of left ankle pain. She states that she slipped in the bathtub and twisted her left ankle. She states that she fell but denies any other injury. She reports pain in the lateral aspect of her left ankle and midfoot. Denies numbness, tingling. - Related Data Home Medications Medication Instructions Recorded Confirmed Acetaminophen Tab [Tylenol Tab] 1,000 mg PO Q6HR PRN 07/11/18 09/22/22 Topiramate [Topamax] 50 mg PO BID 07/11/18 09/22/22 Venlafaxine HCl [Effexor] 100 mg PO BID 12/20/21 09/22/22 Cariprazine HCl [Vraylar] 1.5 mg PO DAILY 09/24/22 09/24/22 Dextroamphetamine/Amphetamine 20 mg PO DAILY 09/24/22 09/24/22 [Adderall] Previous Rx's Medication Instructions Recorded Ondansetron Odt [Zofran Odt] 4 mg PO Q8HR PRN #15 tab 04/01/22 Ibuprofen [Motrin] 800 mg PO Q8HR PRN #30 tab 05/29/22 HYDROcodone/APAP 5-325MG [[place] 1 tab PO Q6HR PRN #12 tab 09/24/22 5-325] Clindamycin [Cleocin] 450 mg PO Q8H #63 capsule 10/09/22 Allergies Allergy/AdvReac Type Severity Reaction Status Date / Time amoxicillin Allergy Anaphylaxis Verified 02/04/23 22:01 cefaclor [From Ceclor] Allergy Anaphylaxis Verified 02/04/23 22:01 ciprofloxacin [From Cipro] Allergy Anaphylaxis Verified 02/04/23 22:01 ciprofloxacin HCl Allergy Anaphylaxis Verified 02/04/23 22:01 [From Cipro] levofloxacin [From Levaquin] Allergy Dyspnea Verified 02/04/23 22:01 Penicillins Allergy Anaphylaxis Verified 02/04/23 22:01 sulfamethoxazole Allergy Dyspnea Verified 02/04/23 22:01 [From Bactrim] and rash trimethoprim [From Bactrim] Allergy Dyspnea Verified 02/04/23 22:01 and rash Review of Systems ROS Statement: Those systems with pertinent positive or pertinent negative responses have been documented in the HPI. ROS Other: All systems not noted in ROS Statement are negative. 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, HTN & gestational diabetes first , pelvic congestion syndrome, meniere's History of Any Multi-Drug Resistant Organisms: None Reported Past Surgical History: Section, Ear Surgery, Hysterectomy, Tonsillectomy, Tubal Ligation, Uterine Ablation Additional Past Surgical History / Comment(s): jaw surgery Past Anesthesia/Blood Transfusion Reactions: Motion Sickness Past Psychological History: Anxiety, Depression Smoking Status: Never smoker Past Alcohol Use History: None Reported Past Drug Use History: None Reported - Past Family History Mother Family Medical History: Coronary Artery Disease (CAD) Father Family Medical History: Coronary Artery Disease (CAD) General Exam Limitations: no limitations General appearance: alert, in no apparent distress Head exam: Present: atraumatic, normocephalic, normal inspection Eye exam: Present: normal appearance, PERRL, EOMI. Absent: scleral icterus, conjunctival injection, periorbital swelling ENT exam: Present: normal exam, mucous membranes moist Neck exam: Present: normal inspection. Absent: tenderness, meningismus, lymphadenopathy Respiratory exam: Present: normal lung sounds bilaterally. Absent: respiratory distress, wheezes, rales, rhonchi, stridor Cardiovascular Exam: Present: regular rate, normal rhythm, normal heart sounds. Absent: systolic murmur, diastolic murmur, rubs, gallop, clicks Extremities exam: Present: full ROM, tenderness (midfoot and lateral ankle), normal capillary refill, other (NVI, ecchymosis to mid foot) Back exam: Present: normal inspection Neurological exam: Present: alert, oriented X3 Psychiatric exam: Present: normal affect, normal mood Skin exam: Present: warm, dry, intact, other (ecchymosis to mid left foot). Absent: rash Course Vital Signs 02/04/23 02/04/23 21:58 23:49 Temperature 98.3 F 98.7 F Pulse Rate 73 72 Respiratory 20 14 Rate Blood Pressure 120/87 123/82 O2 Sat by Pulse 100 Oximetry Medical Decision Making - Medical Decision Making Was pt. sent in by a medical professional or institution (, ABA, LIBRARY PAGE, urgent care, hospital, or jail...) When possible be specific @ -No Did you speak to anyone other than the patient for history (EMS, parent, family, police, friend...)? What history was obtained from this source @ -No Did you review nursing and triage notes (agree or disagree)? Why? @ -I reviewed and agree with nursing and triage notes Were old charts reviewed (outside hosp., previous admission, EMS record, old EKG, old radiological studies, urgent care reports/EKG's, jail records)? Report findings @ -No old charts were reviewed Differential Diagnosis (chest pain, altered mental status, abdominal pain women, abdominal pain men, vaginal bleeding, weakness, fever, dyspnea, syncope, headache, dizziness, GI bleed, back pain, seizure, CVA, palpatations, mental health, musculoskeletal)? @ -Differential Musculoskeletal Muscular strain, contusion, ligament sprain, fracture, arthritis, septic arthritis, bursitis, cellulitis, muscle spasm, nerve compression, DVT, arterial occlusion, herpes zoster, electrolyte abnormality, tumor.... This is not meant to be in all inclusive list EKG interpreted by me (3pts min.). @ -none X-rays interpreted by me (1pt min.). @ -XR Lt foot and ankle showed no evidence of acute fracture CT interpreted by me (1pt min.). @ -None done U/S interpreted by me (1pt. min.). @ -None done What testing was considered but not performed or refused? (CT, X-rays, U/S, labs)? Why? @ -None What meds were considered but not given or refused? Why? @ -None Did you discuss the management of the patient with other professionals (p rofessionals i.e. , ABA, LIBRARY PAGE, lab, RT, psych nurse, social service technician, rpg developer, teacher, hydrographical technical officer, porter sample case)? Give summary @ -No Was smoking cessation discussed for >3mins.? @ -No Was critical care preformed (if so, how long)? @ -No Were there social determinants of health that impacted care today? How? (Homelessness, low income, unemployed, alcoholism, drug addiction, transportation, low edu. Level, literacy, decrease access to med. care, half-way, rehab)? @ -No Was there de-escalation of care discussed even if they declined (Discuss DNR or withdrawal of care, Hospice)? DNR status @ -No What co-morbidities impacted this encounter? (DM, HTN, Smoking, COPD, CAD, Cancer, CVA, ARF, Chemo, Hep., AIDS, mental health diagnosis, sleep apnea, morbid obesity)? @ -None Was patient admitted / discharged? Hospital course, mention meds given and route, prescriptions, significant lab abnormalities, going to OR and other pertinent info. @ -Discharged. Patient presented to emergency department chief complaint of left foot and ankle pain on the lateral aspect of the foot after she slipped in the bathtub. X-rays obtained and show no evidence of acute fracture. Patient is able to ambulate. Patient will be discharged home with follow-up to her primary care provider. Patient stable at time of discharge. Case discussed with my attending, Dr. Mccollum Undiagnosed new problem with uncertain prognosis? @ -No Drug Therapy requiring intensive monitoring for toxicity (Heparin, Nitro, Insulin, Cardizem)? @ -No Were any procedures done? @ -No Diagnosis/symptom? @ -left ankle sprain Acute, or Chronic, or Acute on Chronic? @ -acute Uncomplicated (without systemic symptoms) or Complicated (systemic symptoms)? @ -uncomplicated Side effects of treatment? @ -No Exacerbation, Progression, or Severe Exacerbation? @ -No Poses a threat to life or bodily function? How? (Chest pain, [place], [place], pneumonia, PE, COPD, DKA, ARF, appy, cholecystitis, CVA, Diverticulitis, Homicidal, Suicidal, threat to staff... and all critical care pts) @ -No Disposition Clinical Impression: Ankle sprain Disposition: HOME SELF-CARE Condition: Stable Instructions (If sedation given, give patient instructions): Ankle Sprain (ED) Additional Instructions: Alternate Tylenol and Motrin as needed for pain. Rest, ice, elevate the ankle. Please follow up with your primary care provider. Return to the emergency department for new or worsening symptoms. Is patient prescribed a controlled substance at d/c from ED?: No Referrals: Kane Murrell MD [Primary Care Provider] - 1-2 days
--- NOTE | 2023-02-04 23:29 | XR ---
EXAM: XR Left Ankle Complete, 3 or More Views CLINICAL HISTORY: ITS.REASON XR Reason: inversion injury TECHNIQUE: Frontal, lateral and oblique views of the left ankle. COMPARISON: No relevant prior studies available. FINDINGS: Bones/joints: Unremarkable. No acute fracture. No dislocation. Soft tissues: Unremarkable. IMPRESSION: Normal left ankle x-rays.
--- NOTE | 2023-02-04 23:30 | XR ---
EXAM: XR Left Foot Complete, 3 or More Views CLINICAL HISTORY: ITS.REASON XR Reason: inversion injury TECHNIQUE: Frontal, lateral and oblique views of the left foot. COMPARISON: No relevant prior studies available. FINDINGS: Bones/joints: Unremarkable. No acute fracture. No dislocation. Soft tissues: Unremarkable. No radiopaque foreign body. IMPRESSION: Normal left foot x-rays.
[2023-02-04 23:56] VITALS: BP 123/82; PULSE 72; RESP 14; TEMP 98.7
== END 2023-02-04 23:50 | disposition home or self-care (01) ==
LOC: EC 21:48
DX: S93.402A Sprain of unspecified ligament of left ankle, initial encounter (principal); Z86.59 Personal history of other mental and behavioral disorders; Z88.0 Allergy status to penicillin; Z88.1 Allergy status to other antibiotic agents; Z88.2 Allergy status to sulfonamides; Z88.8 Allergy status to other drugs, medicaments and biological substances; X50.1XXA Overexertion from prolonged static or awkward postures, initial encounter
CPT/HCPCS: 99283

== ENCOUNTER 2023-10-24 01:56 | Emergency (ER) | payer BC, OTHER ==
[2023-10-24 03:55] VITALS: RESP 18
--- NOTE | 2023-10-24 04:16 | ED ---
General Adult HPI - General Chief complaint: Extremity Injury, Upper Stated complaint: Right Arm Injury Time Seen by Provider: 10/24/23 02:35 Source: patient Mode of arrival: ambulatory Limitations: no limitations - History of Present Illness Initial comments: 28-year-old female presenting to the ED with complaints of right hand pain. Patient states around midnight tonight accidentally slammed her right hand into her car door. Now complains of pain diffusely of her right hand however mostly along her right fifth finger no other injuries at this time. No other complaints.. - Related Data Home Medications Medication Instructions Recorded Confirmed Acetaminophen Tab [Tylenol Tab] 1,000 mg PO Q6HR PRN 07/11/18 09/22/22 Topiramate [Topamax] 50 mg PO BID 07/11/18 09/22/22 Venlafaxine HCl [Effexor] 100 mg PO BID 12/20/21 09/22/22 Cariprazine HCl [Vraylar] 1.5 mg PO DAILY 09/24/22 09/24/22 Dextroamphetamine/Amphetamine 20 mg PO DAILY 09/24/22 09/24/22 [Adderall] Previous Rx's Medication Instructions Recorded Ondansetron Odt [Zofran Odt] 4 mg PO Q8HR PRN #15 tab 04/01/22 Ibuprofen [Motrin] 800 mg PO Q8HR PRN #30 tab 05/29/22 HYDROcodone/APAP 5-325MG [[place] 1 tab PO Q6HR PRN #12 tab 09/24/22 5-325] Clindamycin [Cleocin] 450 mg PO Q8H #63 capsule 10/09/22 Acetaminophen Tab [Tylenol] 650 mg PO Q6H #30 tab 10/24/23 Ibuprofen [Motrin] 600 mg PO Q8HR PRN #30 tab 10/24/23 Allergies Allergy/AdvReac Type Severity Reaction Status Date / Time amoxicillin Allergy Anaphylaxis Verified 10/24/23 02:19 cefaclor [From Ceclor] Allergy Anaphylaxis Verified 10/24/23 02:19 ciprofloxacin [From Cipro] Allergy Anaphylaxis Verified 10/24/23 02:19 ciprofloxacin HCl Allergy Anaphylaxis Verified 10/24/23 02:19 [From Cipro] levofloxacin [From Levaquin] Allergy Dyspnea Verified 10/24/23 02:19 Penicillins Allergy Anaphylaxis Verified 10/24/23 02:19 sulfamethoxazole Allergy Dyspnea Verified 10/24/23 02:19 [From Bactrim] and rash trimethoprim [From Bactrim] Allergy Dyspnea Verified 10/24/23 02:19 and rash Review of Systems ROS Statement: Those systems with pertinent positive or pertinent negative responses have been documented in the HPI. ROS Other: All systems not noted in ROS Statement are negative. 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, HTN & gestational diabetes first , pelvic congestion syndrome, meniere's History of Any Multi-Drug Resistant Organisms: None Reported Past Surgical History: Section, Ear Surgery, Hysterectomy, Tonsillectomy, Tubal Ligation, Uterine Ablation Additional Past Surgical History / Comment(s): jaw surgery Past Anesthesia/Blood Transfusion Reactions: Motion Sickness Past Psychological History: Anxiety, Depression Smoking Status: Never smoker Past Alcohol Use History: None Reported Past Drug Use History: None Reported - Past Family History Mother Family Medical History: Coronary Artery Disease (CAD) Father Family Medical History: Coronary Artery Disease (CAD) General Exam Limitations: no limitations General appearance: alert, in no apparent distress Eye exam: Present: normal appearance Neck exam: Present: normal inspection Respiratory exam: Present: normal lung sounds bilaterally Cardiovascular Exam: Present: regular rate GI/Abdominal exam: Present: soft Extremities exam: Present: other (Able to fully flex and extend her fingers of the right hand. Good capillary refill. Does have some snuffbox tenderness to palpation. Reports pain to palpation mostly along the first and fifth finger. No gross deformity noted) Neurological exam: Present: alert, oriented X3 Skin exam: Present: warm, dry Course Vital Signs 10/24/23 02:17 Temperature 98 F Pulse Rate 79 Respiratory 18 Rate Blood Pressure 137/96 O2 Sat by Pulse 99 Oximetry Procedures - Orthopedic Splinting/Casting Injury #1 Side: right Upper Extremity Immobilizer: thumb spica Additional Comments: Good capillary refill and sensation after splint placement. Still able to wiggle her left thumb. Medical Decision Making - Medical Decision Making Was pt. sent in by a medical professional or institution (, PA, AUTOMATION OPERATOR, urgent care, hospital, or long term...) When possible be specific @ -No Did you speak to anyone other than the patient for history (EMS, parent, family, police, friend...)? What history was obtained from this source @ -No Did you review nursing and triage notes (agree or disagree)? Why? @ -I reviewed and agree with nursing and triage notes Were old charts reviewed (outside hosp., previous admission, EMS record, old EKG, old radiological studies, urgent care reports/EKG's, long term records)? Report findings @ -No old charts were reviewed Differential Diagnosis (chest pain, altered mental status, abdominal pain women, abdominal pain men, vaginal bleeding, weakness, fever, dyspnea, syncope, headache, dizziness, GI bleed, back pain, seizure, CVA, palpatations, mental health, musculoskeletal)? @ -Differential Musculoskeletal Muscular strain, contusion, ligament sprain, fracture, arthritis, septic arthritis, bursitis, cellulitis, muscle spasm, nerve compression, DVT, arterial occlusion, herpes zoster, electrolyte abnormality, tumor.... This is not meant to be in all inclusive list EKG interpreted by me (3pts min.). @ -None X-rays interpreted by me (1pt min.). @ -Hand x-ray interpreted by me which revealed no evidence of acute finding. CT interpreted by me (1pt min.). @ -None done U/S interpreted by me (1pt. min.). @ -None done What testing was considered but not performed or refused? (CT, X-rays, U/S, labs)? Why? @ -None What meds were considered but not given or refused? Why? @ -None Did you discuss the management of the patient with other professionals (professionals i.e. , PA, AUTOMATION OPERATOR, lab, RT, psych nurse, professor of social work, sensory scientist, teacher, booking police officer, pillowcase cleaner)? Give summary @ -No Was smoking cessation discussed for >3mins.? @ -No Was critical care preformed (if so, how long)? @ -No Were there social determinants of health that impacted care today? How? (Homelessness, low income, unemployed, alcoholism, drug addiction, transportation, low edu. Level, literacy, decrease access to med. care, senior living, rehab)? @ -No Was there de-escalation of care discussed even if they declined (Discuss DNR or withdrawal of care, Hospice)? DNR status @ -No What co-morbidities impacted this encounter? (DM, HTN, Smoking, COPD, CAD, Cancer, CVA, ARF, Chemo, Hep., AIDS, mental health diagnosis, sleep apnea, morbid obesity)? @ -None Was patient admitted / discharged? Hospital course, mention meds given and route, prescriptions, significant lab abnormalities, going to OR and other pertinent info. @ -Discharge 28-year-old female presenting to the ED with complaints of right hand pain after accidentally slamming it in her car door. Exam shows full flexion extension of fingers with good capillary refill. Radial pulses intact. Strength and sensation intact. She did admit to some snuffbox tenderness to palpation. X- ray revealed no evidence of acute finding. Patient was placed in a thumb spica splint and discharged home in stable condition with referral to see orthopedics. Discussed return precautions with patient who verbalized agreement. Undiagnosed new problem with uncertain prognosis? @ -No Drug Therapy requiring intensive monitoring for toxicity (Heparin, Nitro, Insulin, Cardizem)? @ -No Were any procedures done? @ -Yes, splint placement Diagnosis/symptom? @ -Hand pain Acute, or Chronic, or Acute on Chronic? @ -Acute Uncomplicated (without systemic symptoms) or Complicated (systemic symptoms)? @ -Uncomplicated Side effects of treatment? @ -No Exacerbation, Progression, or Severe Exacerbation? @ -No Poses a threat to life or bodily function? How? (Chest pain, [place], [place], pneumonia, PE, COPD, DKA, ARF, appy, cholecystitis, CVA, Diverticulitis, Homicidal, Suicidal, threat to staff... and all critical care pts) @ -Unlikely Disposition Clinical Impression: Hand pain Disposition: HOME SELF-CARE Condition: Good Additional Instructions: Please return to the Emergency Department if symptoms worsen or any other concerns. Please follow-up with your PCP and orthopedics. Prescriptions: Ibuprofen [Motrin] 600 mg PO Q8HR PRN #30 tab PRN Reason: Pain Acetaminophen Tab [Tylenol] 650 mg PO Q6H #30 tab Is patient prescribed a controlled substance at d/c from ED?: No Referrals: Kane Murrell MD [Primary Care Provider] - 1-2 days Kirti Martínez DO [Doctor of Osteopathic Medicine] - 1-2 days Time of Disposition: 05:31
[2023-10-24] MEDS: ACETAMINOPHEN TAB 500 MG TAB PO STA (04:25)
[2023-10-24] MEDS: KETOROLAC 15 MG/ML 1 ML VIAL IM STA (04:26)
[2023-10-24] MEDS: IBUPROFEN 600 MG STARTER PACK 4 TAB BTL PO STA (05:46)
[2023-10-24 06:42] VITALS: BP 132/93; PULSE 68; TEMP 97.9
--- NOTE | 2023-10-24 08:38 | XR ---
EXAMINATION TYPE: XR hand complete RT DATE OF EXAM: 10/24/2023 COMPARISON: 10/28/2013 HISTORY: Pain TECHNIQUE: 3 view right hand FINDINGS: No acute fracture or dislocation is evident. Joint spaces are preserved. Soft tissues appea r normal. Follow up exams can be performed 7-10 days from acute trauma for continued pain. IMPRESSION: 1. No acute osseous abnormality right hand
== END 2023-10-24 06:11 | disposition home or self-care (01) ==
LOC: EC 01:56
DX: M79.641 Pain in right hand (principal); Z88.0 Allergy status to penicillin; Z88.1 Allergy status to other antibiotic agents; Z88.2 Allergy status to sulfonamides; W22.8XXA Striking against or struck by other objects, initial encounter
CPT/HCPCS: 73130; 29125; 99283; 96372; J1885

== ENCOUNTER 2023-12-21 11:02 | Emergency (ER) | payer OTHER ==
[2023-12-21 11:17] VITALS: RESP 18
--- NOTE | 2023-12-21 11:24 | ED ---
Lower Extremity Injury HPI - General Chief Complaint: Extremity Injury, Lower Stated Complaint: Fall- R foot injury Time Seen by Provider: 12/21/23 11:24 Source: patient, RN notes reviewed Mode of arrival: wheelchair Limitations: no limitations - History of Present Illness Initial Comments: 28-year-old female presented to the ER with a chief complaint of right ankle injury. Patient was walking on the stairs and accidentally missed a step. She states she fell twisting her ankle. She does report hearing a "crack". She states she has been unable to bear weight since incident. She was reporting most of her pain over the lateral malleolus and dorsal aspect of foot. Patient denies any other injuries or complaints. - Related Data Home Medications Medication Instructions Recorded Confirmed Acetaminophen Tab [Tylenol Tab] 1,000 mg PO Q6HR PRN 07/11/18 09/22/22 Topiramate [Topamax] 50 mg PO BID 07/11/18 09/22/22 Venlafaxine HCl [Effexor] 100 mg PO BID 12/20/21 09/22/22 Cariprazine HCl [Vraylar] 1.5 mg PO DAILY 09/24/22 09/24/22 Dextroamphetamine/Amphetamine 20 mg PO DAILY 09/24/22 09/24/22 [Adderall] Previous Rx's Medication Instructions Recorded Ondansetron Odt [Zofran Odt] 4 mg PO Q8HR PRN #15 tab 04/01/22 Ibuprofen [Motrin] 800 mg PO Q8HR PRN #30 tab 05/29/22 HYDROcodone/APAP 5-325MG [[place] 1 tab PO Q6HR PRN #12 tab 09/24/22 5-325] Clindamycin [Cleocin] 450 mg PO Q8H #63 capsule 10/09/22 Acetaminophen Tab [Tylenol] 650 mg PO Q6H #30 tab 10/24/23 Ibuprofen [Motrin] 600 mg PO Q8HR PRN #30 tab 10/24/23 Allergies Allergy/AdvReac Type Severity Reaction Status Date / Time amoxicillin Allergy Anaphylaxis Verified 12/21/23 11:17 cefaclor [From Ceclor] Allergy Anaphylaxis Verified 12/21/23 11:17 ciprofloxacin [From Cipro] Allergy Anaphylaxis Verified 12/21/23 11:17 ciprofloxacin HCl Allergy Anaphylaxis Verified 12/21/23 11:17 [From Cipro] levofloxacin [From Levaquin] Allergy Dyspnea Verified 12/21/23 11:17 Penicillins Allergy Anaphylaxis Verified 12/21/23 11:17 sulfamethoxazole Allergy Dyspnea Verified 12/21/23 11:17 [From Bactrim] and rash trimethoprim [From Bactrim] Allergy Dyspnea Verified 12/21/23 11:17 and rash Review of Systems ROS Statement: Those systems with pertinent positive or pertinent negative responses have been documented in the HPI. ROS Other: All systems not noted in ROS Statement are negative. 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, HTN & gestational diabetes first , pelvic congestion syndrome, meniere's History of Any Multi-Drug Resistant Organisms: None Reported Past Surgical History: Section, Ear Surgery, Hysterectomy, Tonsillectomy, Tubal Ligation, Uterine Ablation Additional Past Surgical History / Comment(s): jaw surgery Past Anesthesia/Blood Transfusion Reactions: Motion Sickness Past Psychological History: Anxiety, Depression Smoking Status: Never smoker Past Alcohol Use History: None Reported Past Drug Use History: None Reported - Past Family History Mother Family Medical History: Coronary Artery Disease (CAD) Father Family Medical History: Coronary Artery Disease (CAD) General Exam General appearance: alert, in no apparent distress Respiratory exam: Present: normal lung sounds bilaterally. Absent: respiratory distress, wheezes, rales, rhonchi, stridor Cardiovascular Exam: Present: regular rate, normal rhythm, normal heart sounds. Absent: systolic murmur, diastolic murmur, rubs, gallop, clicks Extremities exam: Present: normal inspection, tenderness (Mild edema to the lateral Malleolus. 2+ right dorsalis pedis pulse. No wounds, abrasions, erythema or bruising.) Neurological exam: Present: alert, oriented X3, CN II-XII intact Skin exam: Present: warm, dry, intact, normal color. Absent: rash Course Vital Signs 12/21/23 12/21/23 11:15 12:13 Temperature 98.1 F 97.9 F Pulse Rate 79 76 Respiratory 18 18 Rate Blood Pressure 127/89 122/78 O2 Sat by Pulse 99 99 Oximetry Medical Decision Making - Medical Decision Making Was pt. sent in by a medical professional or institution (, PA, HOUSING MANAGEMENT OFFICER, urgent care, hospital, or detention...) When possible be specific @ -[No] Did you speak to anyone other than the patient for history (EMS, parent, family, police, friend...)? What history was obtained from this source @ -[No] Did you review nursing and triage notes (agree or disagree)? Why? @ -[I reviewed and agree with nursing and triage notes] Were old charts reviewed (outside hosp., previous admission, EMS record, old EKG, old radiological studies, urgent care reports/EKG's, detention records)? Report findings @ -[No old charts were reviewed] Differential Diagnosis (chest pain, altered mental status, abdominal pain women, abdominal pain men, vaginal bleeding, weakness, fever, dyspnea, syncope, headache, dizziness, GI bleed, back pain, seizure, CVA, palpatations, mental health, musculoskeletal)? @ -Differential Musculoskeletal: Muscular strain, contusion, ligament sprain, fracture, arthritis, septic arthritis, bursitis, cellulitis, muscle spasm, nerve compression, DVT, arterial occlusion, herpes zoster, electrolyte abnormality, tumor.... This is not meant to be in all inclusive list EKG interpreted by me (3pts min.). @ -None X-rays interpreted by me (1pt min.). @ -Right ankle and foot x-rays interpreted by me negative for acute osseous process. CT interpreted by me (1pt min.). @ -[None done] U/S interpreted by me (1pt. min.). @ -[None done] What testing was considered but not performed or refused? (CT, X-rays, U/S, labs)? Why? @ -[None] What meds were considered but not given or refused? Why? @ -[None] Did you discuss the management of the patient with other professionals (professionals i.e. , ABA, HOUSING MANAGEMENT OFFICER, lab, RT, psych nurse, director social, director export, teacher, chief communications officer, disability case manager)? Give summary @ -[No] Was smoking cessation discussed for >3mins.? @ -[No] Was critical care preformed (if so, how long)? @ -[No] Were there social determinants of health that impacted care today? How? (Homelessness, low income, unemployed, alcoholism, drug addiction, transportation, low edu. Level, literacy, decrease access to med. care, detention, rehab)? @ -[No] Was there de-escalation of care discussed even if they declined (Discuss DNR or withdrawal of care, Hospice)? DNR status @ -[No] What co-morbidities impacted this encounter? (DM, HTN, Smoking, COPD, CAD, Cancer, CVA, ARF, Chemo, Hep., AIDS, mental health diagnosis, sleep apnea, morbid obesity)? @ -[None] Was patient admitted / discharged? Hospital course, mention meds given and route, prescriptions, significant lab abnormalities, going to OR and other pertinent info. @ -Discharge. 28-year-old female presented ER with chief right ankle injury. History and physical exam completed. Vitals stable. Exam remarkable for mild edema over right lateral malleolus. Right lower extremity neurovascular intact. No erythema. brusing, rash, or wounds. X-rays obtained negative for acute pro cess. Patient received IM Toradol for pain control in the ER. Upon reevaluation, patient resting comfortable exam her medicines acute distress. Results discussed with patient, all questions answered. Patient placed in a Uri wrap for compression. I advised [id number] Tylenol and Motrin for pain control. Return parameters discussed. Patient discharged stable condition with follow-up to PCP. Patient expressed understanding and agreement with care plan. Case discussed with the attending, Dr. Pagan. Undiagnosed new problem with uncertain prognosis? @ -[No] Drug Therapy requiring intensive monitoring for toxicity (Heparin, Nitro, Insulin, Cardizem)? @ -[No] Were any procedures done? @ -[No] Diagnosis/symptom? @ -Ankle sprain Acute, or Chronic, or Acute on Chronic? @ -Acute Uncomplicated (without systemic symptoms) or Complicated (systemic symptoms)? @ -Uncomplicated Side effects of treatment? @ -[No] Exacerbation, Progression, or Severe Exacerbation? @ -[No] Poses a threat to life or bodily function? How? (Chest pain, [place], [place], pneumonia, PE, COPD, DKA, ARF, appy, cholecystitis, CVA, Diverticulitis, Homicidal, Suicidal, threat to staff... and all critical care pts) @ -No - Radiology Data Radiology results: report reviewed, image reviewed Disposition Clinical Impression: Ankle sprain Disposition: HOME SELF-CARE Condition: Stable Instructions (If sedation given, give patient instructions): Ankle Sprain (ED) Additional Instructions: Recommend [id number] Tylenol and Motrin for pain control. Continue to rest, ice, elevate and use compression. Follow-up with PCP. Return to the ER for new or worsening concerns. Is patient prescribed a controlled substance at d/c from ED?: No Referrals: Kane Murrell MD [Primary Care Provider] - 1-2 days Time of Disposition: 12:01
[2023-12-21] MEDS: KETOROLAC 15 MG/ML 1 ML VIAL IM STA (11:32)
--- NOTE | 2023-12-21 11:52 | XR ---
EXAMINATION TYPE: XR foot complete RT DATE OF EXAM: 12/21/2023 CLINICAL HISTORY: pain TECHNIQUE: Frontal, lateral and oblique images of the right foot are obtained. COMPARISON: 10/18/19 FINDINGS: There is no acute fracture/dislocation evident. The joint spaces appear within normal hernandez its. The overlying soft tissue appears unremarkable. IMPRESSION: There is no acute fracture or dislocation. ICD 10 NO FRACTURE, INITIAL EVALUATION
--- NOTE | 2023-12-21 11:53 | XR ---
EXAMINATION TYPE: XR ankle complete RT DATE OF EXAM: 12/21/2023 COMPARISON: NONE HISTORY: Pain TECHNIQUE: Frontal, lateral and oblique images of the right ankle are obtained. COMPARISON: None. FINDINGS: There is no acute fracture/dislocation evident. The joint spaces appear within normal hernandez its. The overlying soft tissue appears unremarkable. IMPRESSION: There is no acute fracture or dislocation seen.
[2023-12-21 12:15] VITALS: BP 122/78; PULSE 76; TEMP 97.9
== END 2023-12-21 12:14 | disposition home or self-care (01) ==
LOC: EC 11:02
DX: S93.401A Sprain of unspecified ligament of right ankle, initial encounter (principal); Z88.0 Allergy status to penicillin; Z88.2 Allergy status to sulfonamides; Z88.8 Allergy status to other drugs, medicaments and biological substances; W10.8XXA Fall (on) (from) other stairs and steps, initial encounter
CPT/HCPCS: 73610; 73630; 99283; 96372; J1885